=== PATIENT | female | born 1955 | race Hispanic/Latino ===

== ENCOUNTER 2023-05-02 13:46 | Emergency (ER) | payer MEDICARE, SELFPAY ==
[2023-05-02 13:47] VITALS: PULSE 83; RESP 93; O2SAT 94
[2023-05-02 13:49] VITALS: BP 167/69; PULSE 91; RESP 16; TEMP 36.8; O2SAT 96; BMI 36.8
[2023-05-02 14:36] LABS: Bedside Glucose 356 mg/dL (74-106)
--- NOTE | 2023-05-02 15:39 | EX.ED.DYSGE1 ---
HPI History of Present Illness Chief Complaint: Hyperglycemia Informant: patient Narrative Narrative: Patient is a 67-year-old female, Azeri speaking with her son at the bedside to translate, presenting for concerns of high blood sugars. Patient is diabetic on Trulicity. She receives her care through [facility] in [place]. They have been uptitrating her Trulicity however she is continue to have blood sugar elevations. Patient notes that sometimes her blood sugar is higher and she feels wobbly and unsteady. She has intermittent headache. Denies any vision changes, cough, chest pain, shortness of breath, fever, chills or flulike symptoms. Does have a history of urinary tract infections. Other medications include metformin, lisinopril and atorvastatin. Does get some intermittent nausea and vomiting but attributes that to a side effect of the Trulicity as well as heartburn. Son checked her blood sugar today for fingerstick blood glucose check it was 487 which is what prompted him to come to the ER. Patient did take 36 units at 1030 this morning. [facility] Medical History Diabetes Hypertension Allergy/AdvReac Type Severity Reaction Status Date / Time No Known Allergies Allergy Verified 05/02/23 13:49 Family History no significant family his Surgical History no surgical history Social History household members: family Smoking Status: Never smoker ROS ROS ED Constitutional Constitutional ED: Denies chills, fever(s) or sweats Eyes Eyes: Denies blurry vision or change in vision ENT ENT ED: Denies rhinorrhea or sore throat Cardiovascular Cardiovascular: Denies chest pain Respiratory/Chest Respiratory/Chest: Denies cough Gastrointestinal Gastrointestinal: Reports nausea and vomiting; Denies abdominal pain or constipation Genitourinary Genitourinary ED: Denies dysuria or hematuria Musculoskeletal Musculoskeletal: Denies arthralgias or myalgias Neurologic Neurologic: Reports headache(s); Denies paresthesias or weakness Endocrine Endocrinology: Reports other Details: elevated blood sugar Hematologic/Lymphatic Hematologic/Lymphatic: Denies easy bleeding or easy bruising EXAM Physical Exam Const Vital Signs: 05/02/23 13:49 05/02/23 13:47 05/02/23 15:21 Temperature 98.3 F Temperature Source Temporal Pulse Rate 91 83 Respiratory Rate 16 93 H Respiratory Effort Normal Non-Labored Respiratory Pattern Normal Blood Pressure 167/69 H Blood Pressure Mean 101 Pulse Ox 96 94 Oxygen Delivery Method Room Air Room Air 05/02/23 18:00 Temperature Temperature Source Pulse Rate 84 Respiratory Rate 16 Respiratory Effort Respiratory Pattern Blood Pressure 144/69 H Blood Pressure Mean 94 Pulse Ox 97 Oxygen Delivery Method Positive well nourished and well developed General Appearance ED: well developed and NAD HEENT Reports dry mucous membranes Mouth ED: Yes dry mucous membranes Mouth: dry mucous membranes Neck supple Chest Wall inspection of chest normal and palpation of chest normal Resp normal respiratory effort and clear to auscultation bilaterally Cardio regular rate, regular rhythm and no murmurs GI normal to inspection, nondistended, normoactive bowel sounds and non-tender Extremity normal to inspection Neuro oriented x3, CN's II-XII intact bilaterally and no sensory deficits noted Neuro Narrative: Coordination with normal [id number] and ambulation Sensorium / Orientation: alert Motor Exam: Negative for general weakness Psych mental status grossly normal Skin no rashes or lesions noted and no wounds MDM MDM MDM Narrative Medical decision making narrative: Is evaluated for elevated blood glucose. She has had a vague symptoms of weakness and confusion is going on for about a month. No focal neurologic deficits. Her symptoms are waxing and waning so do not suspect an acute cervical vascular injury. I will obtain basic labs, urinalysis and, EKG and give 1 L of IV fluid. 293 on repeat after liter of IV fluid. Lab work largely unremarkable except for hyperglycemia. Glucose is 386. She is a normal anion gap. She is a mildly elevated alkaline phosphatase of uncertain clinical significance. Denies any abdominal pain. Urinalysis shows 0-5 white blood cells with 25 leuk esterase but no bacteria. Will send off for culture. She does have glucose urea. Patient reevaluated states overall she feeling better but has a mild headache. Given dose of Tylenol. Given 6 use of insulin. We discharged home to follow-up with her primary care doctor for further adjustment of her Trulicity/diabetic medications. She is comfortable this plan of care. At this time I do not think patient requires admission to the hospital. She verbalizes agreement to this plan. Discharged home in stable and improved condition. Lab Data Attestation: I reviewed the patient's lab results. Labs: Laboratory Results - last 24 hr 05/02/23 05/02/23 05/02/23 14:17 14:50 15:49 WBC 7.4 RBC 4.88 Hgb 12.9 Hct 39.5 MCV 80.9 L MCH 26.4 L MCHC 32.7 RDW Std Deviation 42.3 RDW Coeff of Chary 14.4 Plt Count 293 MPV 11.1 Immature Gran % (Auto) 0.300 Neut % (Auto) 61.5 Lymph % (Auto) 30.6 [place] % (Auto) 6.2 Eos % (Auto) 0.7 Baso % (Auto) 0.7 Absolute Neuts (auto) 4.6 Absolute Lymphs (auto) 2.27 Nucleated RBC % 0 Sodium 137 Potassium 4.6 Chloride 103 Carbon Dioxide 25.0 Anion Gap 9 BUN 21 H Creatinine 1.13 H Estim Creat Clear Calc 33.75 Est GFR (MDRD) Af Amer 61 Est GFR (MDRD) Non-Af 51 L BUN/Creatinine Ratio 18.6 Glucose 386 H Calcium 9.5 Total Bilirubin 0.40 AST 8 L ALT 24 Alkaline Phosphatase 153 H Total Protein 7.5 Albumin 3.6 Globulin 3.9 Albumin/Globulin Ratio 0.9 Urine Color Urine Clarity Urine pH Ur Specific [place] Urine Protein Urine Glucose (UA) Urine Ketones Urine Occult Blood Urine Nitrite Urine Bilirubin Urine Urobilinogen Ur Leukocyte Esterase Urine RBC Urine WBC Ur Squamous Epith Cells Urine Bacteria Urine Mucus POC Glucose 356 H 389 H 05/02/23 05/02/23 16:10 17:06 WBC RBC Hgb Hct MCV MCH MCHC RDW Std Deviation RDW Coeff of Chary Plt Count MPV Immature Gran % (Auto) Neut % (Auto) Lymph % (Auto) [place] % (Auto) Eos % (Auto) Baso % (Auto) Absolute Neuts (auto) Absolute Lymphs (auto) Nucleated RBC % Sodium Potassium Chloride Carbon Dioxide Anion Gap BUN Creatinine Estim Creat Clear Calc Est GFR (MDRD) Af Amer Est GFR (MDRD) Non-Af BUN/Creatinine Ratio Glucose Calcium Total Bilirubin AST ALT Alkaline Phosphatase Total Protein Albumin Globulin Albumin/Globulin Ratio Urine Color Yellow Urine Clarity Clear Urine pH 6.0 Ur Specific [place] 1.015 Urine Protein 30 H Urine Glucose (UA) 1000 H Urine Ketones Negative Urine Occult Blood 10 H Urine Nitrite Negative Urine Bilirubin Negative Urine Urobilinogen Normal Ur Leukocyte Esterase 25 H Urine RBC 0 SEEN Urine WBC 0-5 SEEN Ur Squamous Epith Cells 0 SEEN Urine Bacteria 0 SEEN Urine Mucus 0 SEEN POC Glucose 293 H Rhythm Strip Rhythm Strip: Sinus Rhythm Rate: 85 Ectopy: None EKG Initial EKG: Attestation: I personally reviewed and interpreted this EKG as follows: Interpretation: Sinus Rhythm Comments: Sinus rhythm at a rate of 85 bpm Normal axis Normal intervals Normal ST segments Discharge Plan Triage Chief Complaint: Hyperglycemia ED Provider: Vianca Leal Dx/Rx/DC Orders Clinical Impression: Hyperglycemia, Weakness generalized Instructions: ED Diabetic Hyperglycemia Primary Care Provider: JANET NAVA Referrals: JANET NAVA [Other] Activity Restrictions/Additional Instructions: While your blood sugar is elevated there is no signs of a diabetic emergency such as DKA. You were given small dose of insulin in the ER as well as IV fluids. Please follow-up with your primary care doctor on Friday for further titration/management of your blood sugar. Continue to adhere to a diabetic diet. Return to the ER if you have a progression or worsening of your symptoms. Continue to take your medications as prescribed. Print Language: Azeri Disposition Disposition: Home, Self Care Discharge Date/Time: 05/02/23 18:20
[2023-05-02 15:47] LABS: Absolute Lymphocyte Count 2.27 X10^3/uL (0.83-4.51); Absolute Neutrophil Count 4.6 X10^3/uL (2.0-7.7); Basophil# 0.05 X10^3/uL; Basophil% 0.7 % (0-1); Eosinophil# 0.05 X10^3/uL; Eosinophils% 0.7 % (0-5); Hematocrit 39.5 % (37-47); Hemoglobin 12.9 g/dL (12.0-15.0); Lymphocyte # 2.27 X10^3/ul (0.83-4.51); Lymphocyte % 30.6 % (19-41); Mean Corp Hgb Conc 32.7 g/dL (32-36); Mean Corpuscular Hgb 26.4 pg (27.0-32.0); Mean Corpuscular Volume 80.9 fL (81-99); Mean Platelet Vol. 11.1 fl (6.2-12.0); Monocyte# 0.46 X10^3/uL; Monocyte% 6.2 % (0-10); NRBC Flagged by Analyzer 0 % (0-5); Neutrophil # 4.57 X10^3/uL (2.7-7.7); Neutrophil % 61.5 % (47-70); Platelet Count 293 K/mm3 (150-450); RBC Distribution Width CV 14.4 % (11.6-14.6); RBC Distribution Width SD 42.3 fl (35.1-43.9); Red Blood Count 4.88 M/mm3 (4.2-5.4); White Blood Count 7.4 K/mm3 (4.4-11.0)
[2023-05-02] MEDS: 0.9% Normal Saline (1000mL) 1,000 ML 999 ML IV (15:51)
[2023-05-02 16:02] LABS: ALB/GLOB Ratio 0.9 RATIO (0.9-2.4); AST(SGOT) 8 U/L (15-37); Alanine Aminotransfer ALT/SGPT 24 U/L (13-56); Albumin, Serum 3.6 g/dL (3.2-5.0); Alkaline Phosphatase 153 U/L (45-117); Anion Gap 9 (5-15); BUN 21 mg/dL (7-18); BUN/Creat Ratio 18.6 RATIO (10-20); Calcium,Total 9.5 mg/dL (8.5-10.1); Chloride 103 mmol/L (98-107); Creatinine, Serum 1.13 mg/dL (0.55-1.02); EST Glomerular Filtration Rate 51 mL/min (>60); Est Glom Filt Rate - Afr Amer 61 mL/min (>60); Estimated Creatinine Clearance 33.75 ml/min; Globulin 3.9 g/dL (2.2-4.2); Glucose 386 mg/dL (74-106); Potassium 4.6 mmol/L (3.5-5.1); Protein, Total 7.5 g/dL (6.4-8.2); Sodium Level 137 mmol/L (136-145)
[2023-05-02 16:06] LABS: Bedside Glucose 389 mg/dL (74-106)
[2023-05-02 16:21] LABS: Bacteria 0 SEEN /hpf (None Seen); Mucous, Urine 0 SEEN /hpf (<or=2+); Red Blood Cells-Urine 0 SEEN /hpf (0-5); Squamous Epithelial Cells - UA 0 SEEN /hpf (5-10)
[2023-05-02 16:33] LABS: Color, Urine Yellow (Yellow); Glucose, Dipstick 1000 mg/dl (Normal); Ketone-Dipstick Negative (Negative); Leukocyte Esterase-Dipstick 25 /ul (Negative); Nitrite-Dipstick Negative (Negative); Occult Blood-Urine 10 /ul (Negative); Protein-Dipstick 30 mg/dl (Negative); Specific Gravity, Urine 1.015 (1.002-1.030); Urine Bilirubin Dipstick Negative (Negative); Urine Clarity Clear (Clear); Urine Urobilinogen Normal (Normal)
[2023-05-02 16:40] LABS: White Blood Cells 0-5 SEEN /hpf (0-5)
[2023-05-02 17:29] LABS: Bedside Glucose 293 mg/dL (74-106)
[2023-05-02 18:00] VITALS: BP 144/69; PULSE 84; RESP 16; O2SAT 97
[2023-05-02] MEDS: Acetaminophen 325 MG Tablet 650 MG PO (18:09)
[2023-05-02] MEDS: Insulin Lispro 100 UNIT/ML INSULN.PEN 6 UNIT SC (18:09)
== END 2023-05-02 18:20 | disposition home or self-care (01) ==
PROVIDERS: Emergency Provider Emergency Medicine; Visit Provider Emergency Medicine
DX: E11.65 Type 2 diabetes mellitus with hyperglycemia (principal); R53.1 Weakness; I10 Essential (primary) hypertension; Z79.84 Long term (current) use of oral hypoglycemic drugs; Z79.85 Long-term (current) use of injectable non-insulin antidiabetic drugs; Z79.899 Other long term (current) drug therapy
CPT/HCPCS: 80053; 81001; 82962; 85025; 87086; 87088; 93005; 96360; 96361; 99283

== ENCOUNTER 2023-05-16 13:15 | Emergency (ER) | payer MEDICARE, SELFPAY ==
[2023-05-16 13:16] VITALS: BP 149/73; PULSE 101; RESP 16; TEMP 36.1; O2SAT 95
--- NOTE | 2023-05-16 13:34 | CT_ITS ---
STUDY: CT BRAIN WITHOUT CONTRAST REASON FOR EXAM: Female, 67 years old. Headache after trauma RADIATION DOSAGE (If Supplied By Facility): CTDIvol = ( 44.99 ) mGy, DLP = ( 796.11 ) mGycm TECHNIQUE: Transaxial CT imaging of the brain was performed without administration of intravenous contrast material. Individualized dose optimization techniques were used for this CT. COMPARISON: No relevant priors. FINDINGS: Normal soft tissue structures. Normal calvarium. Normal size ventricles and extra-axial spaces for the patient''s age. Normal white matter tracts of the cerebral hemispheres. Normal basal ganglia and thalami. Normal brainstem. Normal cerebellum. There is no intracranial hemorrhage. There are no findings of an acute ischemic infarction. Normal visualized paranasal sinuses. CT/Brain/Head without Contrast IMPRESSION: Chronic involutional changes of the brain, no acute hemorrhage. Electronically Signed: Mervin Savage MD at 14:07 EST ,
--- NOTE | 2023-05-16 13:36 | EX.ED.DYSGE1 ---
HPI History of Present Illness Chief Complaint: Fall Informant: patient and family (Son who is comfortable fully translating since patient speaks Yi no Surinamese) Associated Symptoms Associated Symptoms ED: cough Narrative Narrative: Patient has had a cough, subjective fever and chills, malaise since 2-3 days ago. Very weak today and yesterday to the point today where she was trying to walk and she fell while in the bathroom. She does not remember the fall, son initially called this confusion but agrees that other than not remembering the fall, she seems to be oriented and at her baseline otherwise. She does not have any pain from the fall. However, she has been in bed other than that and is unable to stand or walk on her own, which she does normally when she is well. Family member was ill that she had contact with lately, the son states that the family member tested negative for COVID but otherwise unknown illness, still having symptoms. Patient has had some diarrhea. Very little oral intake in the last couple days. No dyspnea but her chest hurts from coughing according to what the son states she has told him. No GI symptoms as far as pain or nausea/vomiting. [facility] Medical History Diabetes Hypertension Home Medications oseltamivir 75 mg capsule (Tamiflu) 75 mg PO BID 5 days #10 caps 05/16/23 [Rx Last Taken Unknown] Allergy/AdvReac Type Severity Reaction Status Date / Time No Known Allergies Allergy Verified 05/16/23 13:16 Family History no significant family his Surgical History no surgical history Social History household members: family Smoking Status: Never smoker ROS ROS ED Constitutional Constitutional ED: Reports body ache(s), chills, fatigue, fever(s), malaise and subjective; Denies headache(s) Eyes Eyes: Denies change in vision or diplopia ENT ENT ED: Denies rhinorrhea or sore throat Cardiovascular Cardiovascular: Reports chest pain; Denies palpitations Respiratory/Chest Respiratory/Chest: Reports cough and dyspnea on exertion; Denies dyspnea Gastrointestinal Gastrointestinal: Reports diarrhea; Denies abdominal pain, nausea or vomiting Genitourinary Genitourinary ED: Denies dysuria or hematuria Musculoskeletal Musculoskeletal: Reports myalgias; Denies back pain or neck pain Integumentary Denies abscess or rash Neurologic Neurologic: Reports weakness; Denies headache(s) or paresthesias Psychiatric Psychiatric: Denies suicidal ideation or suicidal thoughts EXAM Physical Exam Const Vital Signs: 05/16/23 13:16 Temperature 97.0 F L Temperature Source Temporal Pulse Rate 101 H Respiratory Rate 16 Blood Pressure 149/73 H Blood Pressure Mean 98 Pulse Ox 95 Oxygen Delivery Method Room Air Positive well nourished, well developed and obese Constitutional Narrative: Malaised-appearing, no distress General Appearance ED: well developed and NAD Nutritional Appearance: obese HEENT Reports moist mucous membranes normocephalic and atraumatic Eyes PERRL and EOMs intact bilaterally Neck full ROM, no lymphadenopathy and supple Resp normal respiratory effort and clear to auscultation bilaterally Cardio regular rate, regular rhythm and no murmurs Rate: Negative for tachycardic GI non-tender and non-distended Auscultation: normoactive bowel sounds Palpation: soft Back/Spine no CVA tenderness General Back: other FROM Extremity normal to inspection and no calf tenderness Extremity Narrative: Painless range of motion all joints x 4 General Extremety ED: Negative for edema, pulses abnormal or tenderness General Extremity: Negative for edema or pulses abnormal Neuro oriented x3, CN's II-XII intact bilaterally and no sensory deficits noted Sensorium / Orientation: awake and alert Motor Exam: general weakness Psych mental status grossly normal Skin no rashes or lesions noted and no wounds MDM MDM MDM Narrative Medical decision making narrative: CT of the head was obtained in order to rule out intracranial injury, I reviewed the images and report which I agree with, negative for anything acute. Chest x-ray 2 views of my interpretation shows no acute pneumonia. Her labs are noted and are unremarkable, she does have a white count that is low with a bit of a leftward trend, no significant bandemia. Her glucose was elevated 340. I did look through her [employer] wireless glucose measurement machine, which showed that in the past 3 days 9% of her readings have been within range and the majority of them have been elevated with an average of about 260 and no episodes of hypoglycemia. Her EKG and troponin are within normal limits, ruling out acute myocardial injury and myocarditis as cause of her symptoms. Her influenza/COVID/RSV swab returned positive for both RSV and influenza A, the influenza likely explains her symptoms. If she actually has coinfection with RSV, as I discussed with her and family her illness may linger on longer than the typical week for influenza. She did not have influenza vaccine this year. She is a diabetic is at hyperglycemia and is 340 right now, so I am giving her a dose of short acting insulin which she is not on at home to do sliding scale, as well as starting her on Tamiflu. Family is living with her and comfortable caring for her in the meantime. I encourage fluids, and I would not decrease her dose of long-acting insulin since she probably will not be eating as much. They are comfortable with that plan we discussed reasons to return. Otherwise, supportive care and Tamiflu. Given this result, I canceled the urinalysis since we would need to catheterize her for it and she has no new urinary symptoms just chronic intermittent incontinence. History & Record Review Discussion w/independent historian: Patient and Family (son, [id number]) Lab Data Attestation: I reviewed the patient's lab results. Labs: Laboratory Results - last 24 hr 05/16/23 13:55 WBC 5.5 RBC 4.67 Hgb 12.5 Hct 38.0 MCV 81.4 MCH 26.8 L MCHC 32.9 RDW Std Deviation 41.6 RDW Coeff of Chary 14.2 Plt Count 194 MPV 11.0 Immature Gran % (Auto) 0.400 Neut % (Auto) 80.7 H Lymph % (Auto) 10.3 L [place] % (Auto) 8.4 Eos % (Auto) 0.0 Baso % (Auto) 0.2 Absolute Neuts (auto) 4.4 Absolute Lymphs (auto) 0.56 L Nucleated RBC % 0 Sodium 132 L Potassium 4.1 Chloride 99 Carbon Dioxide 26.0 Anion Gap 7 BUN 14 Creatinine 1.13 H Estim Creat Clear Calc 45.92 Est GFR (MDRD) Af Amer 61 Est GFR (MDRD) Non-Af 51 L BUN/Creatinine Ratio 12.4 Glucose 340 H Calcium 9.1 Total Bilirubin 0.20 AST 24 ALT 29 Alkaline Phosphatase 117 Troponin I High Sens 12 Total Protein 7.6 Albumin 3.4 Globulin 4.2 Albumin/Globulin Ratio 0.8 L Radiography Diagnostic Testing: Clinical Impression(s) from Imaging Studies Brain CT 05/16/23 13:34 IMPRESSION: Chronic involutional changes of the brain, no acute hemorrhage. Electronically Signed: Mervin Savage MD at 14:07 EST , Chest X-Ray 05/16/23 13:55 IMPRESSION: Chronic interstitial changes, no superimposed acute pulmonary process Electronically Signed: Mervin Savage MD at 14:09 EST , Rhythm Strip Rhythm Strip: Sinus Rhythm Rate: 96 Ectopy: None EKG Initial EKG: Attestation: I personally reviewed and interpreted this EKG as follows: Interpretation: Sinus Rhythm and No Acute Injury Pattern Discharge Plan Triage Chief Complaint: Fall ED Provider: Anatoliy Vegas Dx/Rx/DC Orders Clinical Impression: Hyperglycemia due to type 2 diabetes mellitus, Influenza A, RSV infection, Accidental fall Instructions: RSV (Respiratory Syncytial Virus), ED Diabetic Hyperglycemia, ED Influenza (Adult) Prescriptions: New oseltamivir [Tamiflu] 75 mg capsule 75 mg PO BID 5 Days Qty: 10 0RF Primary Care Provider: JANET NAVA Referrals: JANET NAVA [Other] - 1 Week if not improving Disposition Disposition: Home, Self Care
[2023-05-16 13:43] VITALS: BMI 37.2
--- NOTE | 2023-05-16 13:55 | RAD_ITS ---
STUDY: X-RAY CHEST REASON FOR EXAM: Female, 67 years old. cough, weakness TECHNIQUE: PA and lateral views of the chest. COMPARISON: None. FINDINGS: EKG leads overlie the chest Chronic interstitial changes in both lung gaytan without a superimposed acute pulmonary process. Normal size heart. Normal mediastinum and alla. Normal visualized pulmonary arteries. Normal visualized aortic arch and descending thoracic aorta. Normal visualized thoracic spine. Normal visualized ribs, clavicles, and shoulders. There is no demonstrated abnormality of the visualized soft tissue structures of the upper abdomen. RAD/Chest PA and Lateral IMPRESSION: Chronic interstitial changes, no superimposed acute pulmonary process Electronically Signed: Mervin Savage MD at 14:09 EST ,
[2023-05-16 14:06] LABS: Absolute Lymphocyte Count 0.56 X10^3/uL (0.83-4.51); Absolute Neutrophil Count 4.4 X10^3/uL (2.0-7.7); Basophil# 0.01 X10^3/uL; Basophil% 0.2 % (0-1); Hemoglobin 12.5 g/dL (12.0-15.0); Lymphocyte # 0.56 X10^3/ul (0.83-4.51); Lymphocyte % 10.3 % (19-41); Mean Corp Hgb Conc 32.9 g/dL (32-36); Mean Corpuscular Hgb 26.8 pg (27.0-32.0); Mean Corpuscular Volume 81.4 fL (81-99); Monocyte# 0.46 X10^3/uL; Monocyte% 8.4 % (0-10); NRBC Flagged by Analyzer 0 % (0-5); Neutrophil % 80.7 % (47-70); POSITIVE DIFFERENTIAL YES; Platelet Count 194 K/mm3 (150-450); RBC Distribution Width CV 14.2 % (11.6-14.6); RBC Distribution Width SD 41.6 fl (35.1-43.9); Red Blood Count 4.67 M/mm3 (4.2-5.4); White Blood Count 5.5 K/mm3 (4.4-11.0)
[2023-05-16 14:09] LABS: Differential Indicated SCAN CRITERIA MET
--- OUTSIDE RECORDS SUMMARY | 2023-05-16 14:20 | XMS RPT_ITS | CCD ---
Author Name Unknown Address [address] [place] [address] Organization [facility] Care Team Providers Care Physician Relations Specialist Name Role Phone Day Nava Primary Care Provider Dya Nava Unavailable [phone] Unavailable Unavailable Day Nava Primary Care Provider [phone] DAY NAVA Referring Unavailable DAY NAVA Primary Care Unavailable Medications Completed/Discontinued Medications Medication Drug Class(es) Dates Sig (Normalized) Sig (Original) amoxicillin 875 mg / clavulanate 125 mg oral tablet (1 source) Penicillin-class Antibacterial Start: 06-08-2022 take 1 tablet by mouth every twelve hours Amoxicillin-Pot Clavulanate 875-125 MG Oral Tablet Take 1 tablet every 12 hours Quantity: 14 Refills: 0 Ordered: 08-Jun-2022 Herber Helms PA-C Start : 08-Jun-2022 Active Problems Problem Classification Problem Date Documented Da te Episodic/Chronic Other ear and sense organ disorders (1 source) Impacted cerumen; Translations: [Impacted cerumen] Episodic Otitis media and related conditions (1 source) Acute otitis media; Translations: [Unspecified otitis media] Episodic Results Test Name Value Interpretation Reference Range Facil ity Vital Signs Date Time Vital Sign Value Performing Clinician Faci lity 06-08-2022 15:34-0500 Body height 154.94 cm Day Nava Work Phone: -[facility] Work Phone: 06-08-2022 15:34-0500 Body mass index (BMI) [Ratio] 34.01 kg/m2 Day Nava Work Phone: [facility] Work Phone: 06-08-2022 15:34-0500 Body surface area Derived from formula 1.81 m2 Day Nava Work Phone: [facility] Work Phone: 06-08-2022 15:34-0500 Body temperature 98 [degF] Day Nava Work Phone: [facility] Work Phone: 06-08-2022 15:34-0500 Body weight 81.65 kg Day Nava Work Phone: [facility] Work Phone: 06-08-2022 15:34-0500 Diastolic blood pressure 66 mm[Hg] Day Nava Work Phone: [facility] Work Phone: 06-08-2022 15:34-0500 Heart rate 75 /min Day Nava Work Phone: [facility] Work Phone: 06-08-2022 15:34-0500 Respiratory rate 16 /min Day Nava Work Phone: [facility] Work Phone: 06-08-2022 15:34-0500 SaO2% (BldA) [Mass fraction] 97 % Day Nava Work Phone: [facility] Work Phone: 06-08-2022 15:34-0500 Systolic blood pressure 132 mm[Hg] Day Nava Work Phone: [facility] Work Phone: 06-08-2022 15:34-0500 5 1 Day Nava Work Phone: [facility] Work Phone: Encounters Encounter Date Encounter Type Care Provider Facility Start: 02-11-2023 Documentation procedure Mammog gurjit Coordinator [facility] Start: 02-11-2023 Letter encounter Mammography Coordinator [facility] NOT LISTED Start: 02-11-2023 ambulatory DAY NAVA Fac ility:[facility] Start: 06-08-2022 Office outpatient ne w 30 minutes Day Nava Work Phone: -[facility] Work Phone: Start: 03-13-2021 Documentation procedure Mammog gurijt Coordinator [facility] Start: 03-13-2021 Letter encounter Mammography Coordinator [facility] NOT LISTED Start: 03-13-2021 End: 03-13-2021 Subsequent hospital visit by physician Screen [facility] Procedures Date Procedure Procedure Detail Performing Clinician Start: 03-13-2021 End: 03-13-2021 Screening mammography bi 2-view breast inc cad Day Nava Work Phone: Plan of Treatment Date Care Activity Detail Author Start: 12-27-2022 Covid-19 Vaccine ( season) Covid-19 Vaccine () [facility] Start: 12-27-2022 Influenza vaccination Influenza Vacc ine (#1) [facility] Start: 04-28-2022 Advance Directive Discussion Advance Directive Discussion [facility] Start: 04-28-2022 Depression Assessment Depression Ass essment [facility] Start: 03-13-2022 Mammography [facility] Start: 03-20-2021 COVID-19 VACCINE (3 - Booster for Moderna series) COVID-19 VACCINE (3 - Booster for Moderna series) [facility] Start: 12-27-2020 Influenza vaccination INFLUENZA (#1) [facility] Start: 10-06-2020 Urine microalbumin profile DTa P,Tdap,Td Vaccine (1 - Tdap) [facility] Start: 2018 ADVANCE DIRECTIVE DISCUSSION ADVANCE DIRECTIVE DISCUSSION [facility] Start: 2018 BONE DENSITY BONE DENSITY [facility] Start: 2018 Bone Density Screening Bone Density Screening [facility] Start: 2018 Pneumococcal Vaccine : 65+ (1 - PCV) Pneumococcal Vaccine: 65+ (1 - PCV) [facility] Start: 2018 PNEUMOVAX AGE 65 AND OVER WITH 5YR LOOKBACK (#1) PNEUMOVAX AGE 65 AND OVER WITH 5YR LOOKBACK (#1) [facility] Start: 2013 RSV Vaccine (1 - 1-d ose 60+ series) RSV Vaccine (1 - 1-dose 60+ series) [facility] Start: 10-20-2003 SHINGRIX VACCINE (1 of 2) SHINGRIX V ACCINE (1 of 2) [facility] Start: 1998 COLOGUARD (FIT-DNA) COLOGUARD (FIT-D NA) [facility] Start: 1998 Colonoscopy COLONOSCOPY [facility] Start: 1998 COLORECTAL CANCER SCREENING COLORECTAL CANCER SCREENING [facility] Start: [address] COLONOGRAPHY [facility] Start: 1998 DIABETES SCREEN DIABETES SCREEN [facility] Start: 1998 Diabetes Screening Diabetes Screenin g [facility] Start: 1998 FECAL OCCULT BLOOD FECAL OCCULT BLOO D [facility] Start: 1998 Lipid 1996 panel - S brittany or Plasma Lipid Screening [facility] Start: 1998 LIPID SCREEN LIPID SCREEN [facility] Start: 1998 SIGMOIDOSCOPY SIGMOIDOSCOPY [facility] Start: 1972 Urine microalbumin profile DTAP,TDAP ,TD (1 - Tdap) [facility] Start: 10-20-1971 HEPATITIS C SCREENING HEPATITIS C SC REENING [facility] Start: 1965 Adult depression scr eening assessment DEPRESSION SCREENING [facility] Payers Date Payer Category Payer Medicare [facility] [employer] PPO [id number] 2022-Present [phone] [address] [address] [place] [address] PPO [id number] 2022 Unknown [id number] 2020 Medicare MEDICARE [employer] GENERIC MEDICARE ADVANTAGE GENERIC [id number] 2020-Present [phone] [address] [address] [place] [address] Indemnity [id number] Unknown [facility] Social History Date Type Detail Facility [facility] Start: 1955 Sex Assigned At Not on file [facility] Exposure to SARS-CoV -2 (event) Not sure [facility] Gender identity Not on file [facility] inic Note 02-11-2023 Letter - Coordinator, Mammography - 02/11/2023 2:29 PM EDT Note Date & Type Note Facility 02-11-2023 Miscellaneous Notes Formattin g of this note might be different from the original. [facility] [address] [place] [address] February 12, 2023 PID: [id number] Tena Acosta [address] [place] [address] Dear Ms. Acosta, We are pleased to inform you that the results of your recent breast imaging exam on 02/11/2023 are normal. Early detection of cancer is very important. We also understand recommendations regarding breast cancer screening are controversial. Please discuss with your primary care provider which strategy is best for you and whether a mammogram is right for you. Your imaging studies and report will be kept on file at [facility] as part of your permanent medical record and are available for your continuing care. Thank you for allowing us to help in meeting your health care needs. Sincerely, Dr. Garcia Interpreting Radiologist [facility] (Normal over 40) documented in this encounter [facility] Progress note 02-11-2023 Note Date & Type Note Facility 02-11-2023 Note HNO ID: [id number] Author: Sachi Khan RT(R) Service: ? Author Type: Technologist Type: Progress Notes Filed: 02/11/2023 11:29 AM Note Text: Radiology Service Progress Note PATIENT NAME: Tena PEREAN: [id number] DATE OF SERVICE: February 11, 2023 TIME: 11:29 AM PATIENT IDENTITY VERIFICATION COMPLETED USING TWO (2) IDENTIFIERS: Name and Date of confirmed by patient verbally. FALL SCREENING: Has the patient had 2 falls in the last year or 1 fall with injury or currently using an Ambulatory Assistive Device (Walker, Cane, Wheelchair, Crutches, etc.)? No PATIENT GENDER DATA: Female. status: : No status: NO. PATIENT RELEVANT IMPLANT DATA REVIEWED: Yes RADIOLOGY DEPARTMENT: Mammography PERIPHERAL IV DATA: Not applicable SIGNED BY: Sachi Khan RT(R) February 11, 2023 11:29 AM [facility] History of Present illness Narrative 06-06-2022 Note Date & Type Note Facility 06-06-2022 History of Present illness Narrative Patient 66-year-old female presenting with her son for sore throat ear pain. Most of the information was taken from the son as the patient speaks very little Turkmen. The son translated most of it. Patient's had symptoms for about 3 weeks now with sore throat occasional cough and right ear pain. Right ear pain just started a couple days ago. Has been coming and going but is experiencing his pain currently. Denies any recent swimming. Patient son is also been sick. She denies any sinus congestion, fever sweats chills nausea vomiting diarrhea chest pain shortness breath arm pain dizziness syncope, rashes numbness or tingling, weakness. Patient has no known drug allergiesGen: As Noted in HPIHead: As Noted in HPIEyes: As Noted in HPIENT: As Noted in HPICardiac:As Noted in HPIPulmonary: As Noted in HPIHeme/lymph: As Noted in HPIGI: As Noted in HPIGU: As Noted in HPIMusculoskeletal: As Noted in HPISkin: As Noted in HPINeuro: As Noted in HPIPsych:As Noted in HPIReview of systems is otherwise negative unless stated above or in history of present illness. [facility] Work Phone: Note 03-13-2021 Letter - Mammography Coordinator - 03/13/2021 12:36 PM EST Note Date & Type Note Facility 03-13-2021 Miscellaneous Notes [facility] [address] [place] [address] March 13, 2021 PID: [id number] Tena Acosta [address] [place] [address] Dear Karla, We are pleased to inform you that the results of your recent breast imaging exam on 03/13/2021 are normal. Early detection of cancer is very important. We also understand recommendations regarding breast cancer screening are controversial. Please discuss with your primary care provider which strategy is best for you and whether a mammogram is right for you. Your imaging studies and report will be kept on file at [facility] as part of your permanent medical record and are available for your continuing care. Thank you for allowing us to help in meeting your health care needs. Sincerely, Dr. Garcia Interpreting Radiologist [facility] (Normal over 40) documented in this encounter [facility] History of Present illness Narrative 03-13-2021 RT Gerardo(R) - 03/13/2021 11:40 AM EST Note Date & Type Note Facility 03-13-2021 History of Presen t illness Narrative Radiology Service Progress Note PATIENT NAME: Tena Acosta DATE OF SERVICE: March 13, 2021 TIME: 12:21 PM PATIENT IDENTITY VERIFICATION COMPLETED USING TWO (2) IDENTIFIERS: Name and Date of confirmed by patient verbally. FALL SCREENING: Has the patient had 2 falls in the last year or 1 fall with injury or currently using an Ambulatory Assistive Device (Walker, Cane, Wheelchair, Crutches, etc.)? No PATIENT GENDER DATA: Female. status: : No status: NO. PATIENT RELEVANT IMPLANT DATA REVIEWED: Yes RADIOLOGY DEPARTMENT: Mammography PERIPHERAL IV DATA: Not applicable SIGNED BY: RT Gerardo(R) March 13, 2021 12:21 PM documented in this encounter [facility] Chief Complaint Sore throat, ear Summary Purpose Family History No Family History Records Found Advance Directives No Advanced Directives Records Found Additional Source Comments Source Comments (unrecognize d section and content) In the event this informatio n is protected by the Federal Confidentiality of Alcohol and Drug Abuse Patient Records regulations: The Federal rules restrict any use of the information to criminally investigate or prosecute any alcohol or drug abuse patient.[facility] the event this information is protected by the Federal Confidentiality of Alcohol and Drug Abuse Patient Records regulations: The Federal rules restrict any use of the information to criminally investigate or prosecute any alcohol or drug abuse patient.[facility] the event this information is protected by the Federal Confidentiality of Alcohol and Drug Abuse Patient Records regulations: The Federal rules restrict any use of the information to criminally investigate or prosecute any alcohol or drug abuse patient.[facility] Reason for Visit (unrecogniz ed section and content) Specialty Diagnoses / Procedures Referred By Contac t Referred To Contact [facility] M[facility]MO REFLE[facility] Diagnoses Encounter for general adult medical examination without abnormal findings screening Procedures SCREENING MAMMOGRAPHY BI 2-VIEW BREAST INC CAD MAMMOGRAM SCREEN EXTERNAL Day Nava [address] [address] [facility] [address] [address] Referral ID Status Reason Start Date Expiration Date Visits Re quested Visits Authorized [id number] Closed 04/28/2020 04/27/2021 1 1 Care Teams (unrecognized sec tion and content) Physician Relations Specialist Relationship Specialty Start Date End Date Day Nava [address] [place] [phone] PCP - General Family Practice 03/13/21 Physician Relations Specialist Relationship Specialty Start Date End Date Day Nava [address] [place] [phone] PCP - General Family Medicine 03/13/21 INFORMATION SOURCE (unrecogn ized section and content) FOR RECORDS PERTAINING TO PATIENTS WHO ARE OR HAVE BEEN ENROLLED IN A CHEMICAL DEPENDENCY/SUBSTANCEABUSE PROGRAM, SOME INFORMATION MAY BE OMITTED. This clinical summary was aggregated from multiple sources. Caution should be exercised in using it in the provision of clinical care. This summary normalizes information from multiple sources, and as a consequence, information in this document may materially change the coding, format and clinical context of patient data. In addition, data may be omitted in some cases. CLINICAL DECISIONS SHOULD BE BASED ON THE PRIMARY CLINICAL RECORDS. [employer] provides no warranty or guarantee of the accuracy or completeness of information in this document.
[2023-05-16 14:22] LABS: ALB/GLOB Ratio 0.8 RATIO (0.9-2.4); AST(SGOT) 24 U/L (15-37); Alanine Aminotransfer ALT/SGPT 29 U/L (13-56); Albumin, Serum 3.4 g/dL (3.2-5.0); Alkaline Phosphatase 117 U/L (45-117); Anion Gap 7 (5-15); BUN 14 mg/dL (7-18); BUN/Creat Ratio 12.4 RATIO (10-20); Calcium,Total 9.1 mg/dL (8.5-10.1); Chloride 99 mmol/L (98-107); Creatinine, Serum 1.13 mg/dL (0.55-1.02); EST Glomerular Filtration Rate 51 mL/min (>60); Est Glom Filt Rate - Afr Amer 61 mL/min (>60); Estimated Creatinine Clearance 45.92 ml/min; Globulin 4.2 g/dL (2.2-4.2); Glucose 340 mg/dL (74-106); Potassium 4.1 mmol/L (3.5-5.1); Protein, Total 7.6 g/dL (6.4-8.2); Sodium Level 132 mmol/L (136-145); Troponin-I HS 12 pg/mL (3.0-54.0)
[2023-05-16] MEDS: 0.9% Normal Saline (1000mL) 1,000 ML 1000 ML IV (14:30)
[2023-05-16 15:15] VITALS: RESP 18
[2023-05-16] MEDS: Oseltamivir Phosphate 75 MG Capsule PO (15:26)
[2023-05-16] MEDS: Insulin Lispro 100 UNIT/ML INSULN.PEN 8 UNIT SC (15:26)
== END 2023-05-16 16:17 | disposition home or self-care (01) ==
PROVIDERS: Emergency Provider Emergency Medicine; Visit Provider Emergency Medicine
DX: E11.65 Type 2 diabetes mellitus with hyperglycemia (principal); J10.1 Influenza due to other identified influenza virus with other respiratory manifestations; B97.4 Respiratory syncytial virus as the cause of diseases classified elsewhere; E66.9 Obesity, unspecified
CPT/HCPCS: 70450; 71046; 80053; 84484; 85025; 87631; 93005; 96360; 99284; J7030; A4216

== ENCOUNTER 2024-11-09 14:24 | Emergency (ER) | payer MEDICARE, SELFPAY ==
[2024-11-09 14:25] VITALS: BP 125/59; PULSE 91; RESP 17; TEMP 36.6; O2SAT 95; BMI 37.3
[2024-11-09 15:54] VITALS: BP 130/78; PULSE 89; RESP 18; TEMP 37; O2SAT 98
--- NOTE | 2024-11-09 16:01 | EX.ED.VISEXT ---
HPI History of Present Illness HPI Narrative: 69-year-old female history of hypertension diabetes. She was helping take care of stray cats yesterday. One of the kittens came in a house as she was getting out of the house she went to pick it up and turned around and bit her on her right thumb and index finger and left index finger. She has some mild swelling. No fever. No streaks. Chief Complaint: Bite Informant: patient and family Occured/Mechanism Comment: Cat bite bilateral hands yesterday. Onset/Context/Timing Onset: Yesterday Context: Gradual Onset Timing: Continuous Quality of Pain: Dull and Aching Current Severity: Mild Maximum Severity: Mild Narrative Narrative: 69-year-old diabetic female By Bite right index finger and right thumb and left index finger occurred yesterday.. She is right-hand dominant. Prior similar symptoms: No Recent Illness/Hospitalization: No ROS ROS ED ROS Narrative Denies recent illness. Constitutional Constitutional ED: Denies chills or fever(s) Eyes Eyes: Denies blurry vision ENT ENT ED: Denies ear pain Cardiovascular Cardiovascular: Denies chest pain or palpitations Respiratory/Chest Respiratory/Chest: Denies cough or dyspnea Gastrointestinal Gastrointestinal: Denies abdominal pain Genitourinary Genitourinary ED: Denies dysuria or hematuria Musculoskeletal Musculoskeletal: Denies arthralgias Integumentary Denies abscess or Abrasions Neurologic Neurologic: Denies headache(s) Psychiatric Psychiatric: Denies anxiety Endocrine Endocrinology: Denies polydipsia Hematologic/Lymphatic Hematologic/Lymphatic: Denies easy bleeding, easy bruising or lymphadenopathy Allergic/Immunologic Allergic/Immunologic ED: Denies mouth swelling, tongue swelling or urticaria PFSH PFS Medical History Hypertension Diabetes Home Medications ?Medication ?Instructions ?Recorded ?Last Taken ?Type amoxicillin 875 mg-potassium 1 tab PO BID 10 days #20 tabs 11/09/24 Unknown Rx clavulanate 125 mg tablet Allergy/AdvReac Type Severity Reaction Status Date / Time No Known Allergies Allergy Verified 11/09/24 14:29 Social History household members: family housing: house Smoking Status: Never smoker EXAM Physical Exam Narrative Exam Narrative: 69-year-old female sitting upright in bed. Vital signs are stable afebrile. No acute distress. Son at bedside. Vital signs are stable and afebrile. H EENT exam pupils round react light. Mytrex membranes. Neck nontender no lymphadenopathy. Lungs clear to auscultation. Heart regular rhythm no murmur. Abdomen soft nontender. Moving all 4 extremities. Neurovascular intact. Left index finger swollen bite henson consistent with early infection. Right index finger and thumb similar. Multiple bite henson. No lymphangitic streaking. There is no swelling and/or palm of her hand on either side or her forearm. There is no axillary lymphadenopathy. No forearm tenderness or swelling. Neurologically she is awake alert. Const Vital Signs: 11/09/24 14:25 11/09/24 15:54 11/09/24 16:02 Temperature 97.8 F 98.6 F 98.6 F Temperature Source Oral Oral Pulse Rate 91 89 89 Respiratory Rate 17 18 18 Blood Pressure 125/59 H 130/78 H 130/78 H Blood Pressure Mean 81 95 95 Pulse Ox 95 98 98 Oxygen Delivery Method Room Air Room Air Positive well nourished and well developed; Negative for cachectic, contractures or unkempt General Appearance ED: well developed and NAD; Negative for unkempt, cachectic or contractures Nutritional Appearance: Negative for cachectic HEENT Reports moist mucous membranes normocephalic and atraumatic; Negative for trauma or tenderness Eyes PERRL and EOMs intact bilaterally Neck full ROM and no lymphadenopathy Resp normal respiratory effort and clear to auscultation bilaterally Cardio regular rate, regular rhythm, S1 normal heart sound, S2 normal heart sound and no murmurs GI non-tender, non-distended and no masses Auscultation: normoactive bowel sounds Palpation: soft; Negative for tender, guarding or rebound tenderness present Back/Spine no CVA tenderness General Back: Negative for CVA tenderness Cervical Spine: Negative for cervical spine tenderness Thoracic Spine / Upper Back: Negative for thoracic spinal tenderness Lumbar Spine / Lower Back: Negative for lumbar spinal tenderness Extremity full ROM; Negative for normal to inspection Extremity Narrative: Swelling and bite henson to the right index finger and thumb but no lymphangitic streaking. Minimal swelling. Tenderness. Similar to the left index finger with swelling and tenderness and bite henson. Again no lymphangitic streaking. Able to do flexion extension. Neuro oriented x3 and CN's II-XII intact bilaterally Sensorium / Orientation: alert, oriented to person, oriented to place and oriented to time Motor Exam: strength 5/5 throughout Psych mental status grossly normal and thought process normal Appearance: Negative for unkempt Skin skin turgor normal Skin Narrative: Cat bites bilateral hands. Lesions: no lesions Rashes: No no rashes MDM MDM MDM Narrative Medical decision making narrative: 69-year-old diabetic female Bites from yesterday to both index fingers and right thumb. Early infection. She was started on Augmentin twice a day first dose given here. Family and patient were strongly instructed if this gets worse just return for admission. She does not want admission at this time. History & Record Review Discussion w/independent historian: Patient and Family Additional record(s) reviewed:: Prior inpatient record, Prior outpatient record, Prior ED visit and Prior labs Discharge Plan Triage Chief Complaint: Bite ED Provider: Mark Her Dx/Rx/DC Orders Clinical Impression: Cat bite Instructions: ED Cat Bite Prescriptions: New amoxicillin-pot clavulanate 875-125 mg tablet 1 tab PO BID 10 Days Qty: 20 0RF Primary Care Provider: Eunice Morgan Referrals: Eunice Morgan NP-C [Primary Care Provider] - As Needed Activity Restrictions/Additional Instructions: Ice and elevate your hands decrease pain and swelling Motrin and Tylenol for pain and swelling. The antibiotic Augmentin twice a day till gone. Return to the emergency department if increasing pain, increasing redness, increasing swelling, streaks up your arm or you are feeling worse. We have to watch is really closely this and get infected and worse quickly. If seen just return Print Language: Hungarian Disposition Disposition: Home, Self Care
[2024-11-09 16:02] VITALS: BP 130/78; PULSE 89; RESP 18; TEMP 37; O2SAT 98
--- OUTSIDE RECORDS SUMMARY | 2024-11-09 22:17 | XMS RPT_ITS | CCD ---
Author Organization [facility] Care Team Providers Care Railroad Commissioner Name Role Phone Day Nava Primary Care Provider [phone] Day Nava Unavailable [phone] Unavailable Unavailable Day Nava Primary Care Provider [phone] STACEY ZHENG Primary Care Unavailable Vianca Leal Attending Unavailable STACEY ZHENG Primary Care Unavailable Anatoliy Vegas Attending Unavailable Day Nava Primary Care Provider [phone] Day Nava DO Primary Care Provider [phone] Eunice Cortes Primary Care Provider [phone] Dr. Mark Her MD Emergency Provider Medications Current Medications Medication Drug Class(es) Dates Sig (Normalized) Sig (Original) amoxicillin 875 mg / clavulanate 125 mg oral tablet (2 sources) Penicillin-class Antibacterial Start: 11-09-2024 Amoxicillin-Pot Clavulanate 875-125 mg tablet Active 1 {tbl} PO TWICE A DAY 20 10 0 November 09, 2024 12:00am Start: 06-08-2022 take 1 tablet by majo th every twelve hours Amoxicillin-Pot Clavulanate 875-125 MG Oral Tablet Take 1 tablet every 12 hours Quantity: 14 Refills: 0 Ordered: 08-Jun-2022 Herber Helms PA-C Start : 08-Jun-2022 Active Completed/Discontinued Medications Medication Drug Class(es) Dates Sig (Normalized) Sig (Original) oseltamivir 75 mg oral capsule (1 source) Neuraminidase Inhibitor Start: 05-16-2023 End: 11-09-2024 take 1 capsule by mouth twice daily Oseltamivir (Tamiflu) 75 mg capsule Discontinued 75 mg PO TWICE A DAY 10 5 0 May 16, 2023 1:00am November 09, 2024 2:29pm Problems Problem Classification Problem Date Documented Date Episodic/Chronic Diabetes mellitus with complications (2 sources) Type 2 diabetes mellitus with hyperglycemia; Translations: [Hyperglycemia due to type 2 diabetes mellitus] Onset: 05-07-2023 05-24-2023 Chronic Diabetes mellitus without complication (2 sources) Hyperglycemia 05-02-2023 Episodic E Codes: Fall (1 source) Accidental fall ; Translations: [Unspecified fall, initial encounter] 05-24-2023 Episodic E Codes: Natural/environment (1 source) Cat bite - wound; Translations: [Bitten by cat, initial encounter] 11-09-2024 Episodic Influenza (1 source) Influenza due to Influenza A virus; Translations: [Influenza due to other identified influenza virus with other respiratory manifestations] 05-24-2023 Episodic Malaise and fatigue (2 sources) Asthenia; Translations: [Weakness] 05-02-2023 Episodic Other ear and sense organ disorders (1 source) Impacted cerumen; Translations: [Impacted cerumen] Episodic Otitis media and related conditions (1 source) Acute otitis media; Translations: [Unspecified otitis media] Episodic Unclassified (1 source) Cough, unspecified; Translations: [Cough, unspecified] Onset: 06-17-2023 Viral infection (1 source) Respiratory syncytial virus infection; Translations: [Other specified viral diseases] 05-24-2023 Episodic Results Test Name Value Interpretation Reference Range Facility [facility] 05-21-2024 [facility] Telephone (AGGASTACC) ---- ALMAS WILSON ([id number]) 1955 F [facility] Date Time Provider Department 05/21/24 DANIELLE JACKSON During your visit today, we recorded the following information about you: Silvia Balderas 05/21/2024 3:50 PM Signed Left voicemail for patient to call back to schedule a appointment based on referral for screening for malignant neoplasm of colon Silvia Balderas Allergies As of Date: 05/21/2024 (Not on File) Date Reviewed: Never Reviewed Reason for Visit: Appointment [[id number]] Problem List As Of Date: 05/21/2024 (None) Encounter Status:Closed by SILVIA BALDERAS on 06/01/24 Normal [facility] Brain/Head without Contrasto n 05-16-2023 Brain/Head without Contrast [facility] Imaging Services [address] [place] [address] Brain/Head without Contrast MR#: [id number] Acct: [id number] Name: ALMAS WILSON Rep #: [id number] : 1955 F 67 From: Gasper Savage MD PCP: DAY NAVA Status: REG ER Study: Brain/Head without Contrast Date of Exam: 04/28 01/19 Exam# [id number] Ordering Dr: Anatoliy Vegas MD -[id number] STUDY: CT BRAIN WITHOUT CONTRAST REASON FOR EXAM: Female, 67 years old. Headache after trauma RADIATION DOSAGE (If Supplied By Facility): CTDIvol = ( 44.99 ) mGy, DLP = ( 796.11 ) mGycm TECHNIQUE: Transaxial CT imaging of the brain was performed without administration of intravenous contrast material. Individualized dose optimization techniques were used for this CT. COMPARISON: No relevant priors. FINDINGS: Normal soft tissue structures. Normal calvarium. Normal size ventricles and extra-axial spaces for the patient''s age. Normal white matter tracts of the cerebral hemispheres. Normal basal ganglia and thalami. Normal brainstem. Normal cerebellum. There is no intracranial hemorrhage. There are no findings of an acute ischemic infarction. Normal visualized paranasal sinuses. CT/Brain/Head without Contrast IMPRESSION: Chronic involutional changes of the brain, no acute hemorrhage. Electronically Signed: Mervin Savage MD at 14:07 EST , CC: Dr. Anatoliy Vegas MD; DAY NAVA Sales Branch Manager: Signed Normal [facility] CBC W/Diff, Automatedon 04-28 Absolute Lymph 0.56 X10 3/uL Low 0.83-4.51 [facility] Comment on above: Performed By: #### L 500.4050, L501.4020, L100.0100 #### [facility] [address] [place], [address] Absolute Neut 4.4 X10 3/uL Normal 2.0-7.7 [facility] Comment on above: Performed By: #### L 500.4050, L501.4020, L100.0100 #### [facility] [address] [place], [address] Basophils/100 WBC (Bld) 0.2 % Normal 0-1 [facility] Comment on above: Performed By: #### L 500.4050, L501.4020, L100.0100 #### [facility] [address] [place], [address] Eosinophils/100 WBC (Bld) 0.0 % Normal 0-5 [facility] Comment on above: Performed By: #### L 500.4050, L501.4020, L100.0100 #### [facility] [address] [place], [address] Erythrocyte distribution width (RBC) [Ratio] 14.2 % Normal 11.6-14.6 [facility] Comment on above: Performed By: #### L 500.4050, L501.4020, L100.0100 #### [facility] [address] [place], [address] Hematocrit (Bld) [Volume fraction] 38.0 % Normal 37-47 [facility] Comment on above: Performed By: #### L 500.4050, L501.4020, L100.0100 #### [facility] [address] [place], [address] Hemoglobin (Bld) [Mass/Vol] 12.5 g/dL Normal 12.0-15.0 [facility] Comment on above: Performed By: #### L 500.4050, L501.4020, L100.0100 #### [facility] [address] [place], [address] IG% 0.400 Normal 0.0-0.9 [facility] Comment on above: Result Comment: IG% - Immature Granulocytes (promyelocytes, myelocytes and metamyelocytes) > 1% indicates that a LEFT SHIFT is Present. Performed By: #### L 500.4050, L501.4020, L100.0100 #### [facility] [address] [place], [address] Lymphocytes/100 WBC (Bld) 10.3 % Low 19-41 [facility] Comment on above: Performed By: #### L 500.4050, L501.4020, L100.0100 #### [facility] [address] [place], [address] MCH (RBC) [Entitic mass] 26.8 pg Low 27.0-32.0 [facility] Comment on above: Performed By: #### L 500.4050, L501.4020, L100.0100 #### [facility] [address] [place], [address] MCHC (RBC) [Mass/Vol] 32.9 g/dL Normal 32-36 [facility] Comment on above: Performed By: #### L 500.4050, L501.4020, L100.0100 #### [facility] [address] [place], [address] MCV (RBC) [Entitic vol] 81.4 fL Normal 81-99 [facility] Comment on above: Performed By: #### L 500.4050, L501.4020, L100.0100 #### [facility] [address] [place], [address] Monocytes/100 WBC (Bld) 8.4 % Normal 0-10 [facility] Comment on above: Performed By: #### L 500.4050, L501.4020, L100.0100 #### [facility] [address] [place], [address] Neutrophils/100 WBC (Bld) 80.7 % High 47-70 [facility] Comment on above: Performed By: #### L 500.4050, L501.4020, L100.0100 #### [facility] [address] [place], [address] Nucleated RBC (Bld) [#/Vol] 0 10*3/uL Normal 0-5 [facility] Comment on above: Performed By: #### L 500.4050, L501.4020, L100.0100 #### [facility] [address] [place], [address] Platelet mean volume (Bld) [Entitic vol] 11.0 fL Normal 6.2-12.0 [facility] Comment on above: Performed By: #### L 500.4050, L501.4020, L100.0100 #### [facility] [address] [place], [address] Platelets (Bld) [#/Vol] 194 10*3/uL Normal 150-450 [facility] Comment on above: Performed By: #### L 500.4050, L501.4020, L100.0100 #### [facility] [address] [place], [address] RBC (Bld) [#/Vol] 4.67 10*6/uL Normal 4.2-5.4 [facility] Comment on above: Performed By: #### L 500.4050, L501.4020, L100.0100 #### [facility] [address] [place], [address] RDW SD 41.6 fl Normal 35.1-43.9 [facility] Comment on above: Performed By: #### L 500.4050, L501.4020, L100.0100 #### [facility] [address] [place], [address] WBC (Bld) [#/Vol] 5.5 10*3/uL Normal 4.4-11.0 [facility] Comment on above: Performed By: #### L 500.4050, L501.4020, L100.0100 #### [facility] [address] [place], [address] Chest PA and Lateralon 05-16 Chest PA and Lateral [facility] Imaging Services [address] [place] [address] Chest PA and Lateral MR#: [id number] Acct: [id number] Name: ALMAS WILSON Rep #: [id number] : 1955 F 67 From: Gasper Savage MD PCP: DAY NAVA Status: [facility] ER Study: Chest PA and Lateral Date of Exam: 05/16/23 Exam# [id number] Ordering Dr: Anatoliy Vegas MD -[id number] STUDY: X-RAY CHEST REASON FOR EXAM: Female, 67 years old. cough, weakness TECHNIQUE: PA and lateral views of the chest. COMPARISON: None. FINDINGS: EKG leads overlie the chest Chronic interstitial changes in both lung gaytan without a superimposed acute pulmonary process. Normal size heart. Normal mediastinum and alla. Normal visualized pulmonary arteries. Normal visualized aortic arch and descending thoracic aorta. Normal visualized thoracic spine. Normal visualized ribs, clavicles, and shoulders. There is no demonstrated abnormality of the visualized soft tissue structures of the upper abdomen. RAD/Chest PA and Lateral IMPRESSION: Chronic interstitial changes, no superimposed acute pulmonary process Electronically Signed: Mervin Savage MD at 14:09 EST , CC: Dr. Anatoliy Vegas MD; DAY NAVA Sales Branch Manager: Signed Normal [facility] Comprehensive Metabolic Prof ilon 05-16-2023 Albumin [Mass/Vol] 3.4 g/dL Normal 3.2-5.0 [facility] Comment on above: Order Comment: 'TROP ' Serial specimen #1, #2 or #3: 1 Performed By: #### L 500.4050, L501.4020, L100.0100 #### [facility] [address] [place], [address] Albumin/Globulin [Mass ratio] 0.8 {ratio} Low 0.9-2.4 [facility] Comment on above: Order Comment: 'TROP ' Serial specimen #1, #2 or #3: 1 Performed By: #### L 500.4050, L501.4020, L100.0100 #### [facility] [address] [place], [address] ALK P 117 U/L Normal 45-117 [facility] Comment on above: Order Comment: 'TROP ' Serial specimen #1, #2 or #3: 1 Performed By: #### L 500.4050, L501.4020, L100.0100 #### [facility] [address] [place], [address] ALT [Catalytic activity/Vol] 29 U/L Normal 13-56 [facility] Comment on above: Order Comment: 'TROP ' Serial specimen #1, #2 or #3: 1 Performed By: #### L 500.4050, L501.4020, L100.0100 #### [facility] [address] [place], [address] AST [Catalytic activity/Vol] 24 U/L Normal 15-37 [facility] Comment on above: Order Comment: 'TROP ' Serial specimen #1, #2 or #3: 1 Performed By: #### L 500.4050, L501.4020, L100.0100 #### [facility] [address] [place], [address] Bilirubin [Mass/Vol] 0.20 mg/dL Normal 0.20-1.00 [facility] Comment on above: Order Comment: 'TROP ' Serial specimen #1, #2 or #3: 1 Result Comment: For patients on eltrombopag therapy, use of Dimension Blanding TBIL is not recommended. Performed By: #### L 500.4050, L501.4020, L100.0100 #### [facility] [address] [place], [address] BUN/CRE 12.4 RATIO Normal 10-20 [facility] Comment on above: Order Comment: 'TROP ' Serial specimen #1, #2 or #3: 1 Performed By: #### L 500.4050, L501.4020, L100.0100 #### [facility] [address] [place], [address] CA,Total 9.1 mg/dL Normal 8.5-10.1 [facility] Comment on above: Order Comment: 'TROP ' Serial specimen #1, #2 or #3: 1 Performed By: #### L 500.4050, L501.4020, L100.0100 #### [facility] [address] [place], [address] Chloride [Moles/Vol] 99 mmol/L Normal 98-107 [facility] Comment on above: Order Comment: 'TROP ' Serial specimen #1, #2 or #3: 1 Performed By: #### L 500.4050, L501.4020, L100.0100 #### [facility] [address] [place], [address] CO2 [Moles/Vol] 26.0 mmol/L Normal 21.0-32.0 [facility] Comment on above: Order Comment: 'TROP ' Serial specimen #1, #2 or #3: 1 Performed By: #### L 500.4050, L501.4020, L100.0100 #### [facility] [address] [place], [address] Creatinine [Mass/Vol] 1.13 mg/dL High 0.55-1.02 [facility] Comment on above: Order Comment: 'TROP ' Serial specimen #1, #2 or #3: 1 Result Comment: The validity of the calculated GFR GFRAA in patients over 70 years has not been determined. Clinical correlation is essential. Performed By: #### L 500.4050, L501.4020, L100.0100 #### [facility] [address] [place], [address] ECRCL 45.92 ml/min Normal [facility] Comment on above: Order Comment: 'TROP ' Serial specimen #1, #2 or #3: 1 Performed By: #### L 500.4050, L501.4020, L100.0100 #### [facility] [address] [place], [address] EST GFR - AA 61 mL/min Normal >60 [facility] Comment on above: Order Comment: 'TROP ' Serial specimen #1, #2 or #3: 1 Result Comment: Afri can Ukrainian GFR Calc Performed By: #### L 500.4050, L501.4020, L100.0100 #### [facility] [address] [place], [address] GAP 7 Normal 5-15 [facility] Comment on above: Order Comment: 'TROP ' Serial specimen #1, #2 or #3: 1 Performed By: #### L 500.4050, L501.4020, L100.0100 #### [facility] [address] [place], [address] GFR/1.73 sq M.predicted among non-blacks MDRD (S/P/Bld) [Vol rate/Area] 51 mL/min/{1.73_m2} Low >60 [facility] Comment on above: Order Comment: 'TROP ' Serial specimen #1, #2 or #3: 1 Result Comment: Non- GFR Calc Performed By: #### L 500.4050, L501.4020, L100.0100 #### [facility] [address] [place], [address] Globulin (S) [Mass/Vol] 4.2 g/dL Normal 2.2-4.2 [facility] Comment on above: Order Comment: 'TROP ' Serial specimen #1, #2 or #3: 1 Performed By: #### L 500.4050, L501.4020, L100.0100 #### [facility] [address] [place], [address] Glucose [Mass/Vol] 340 mg/dL High 74-106 [facility] Comment on above: Order Comment: 'TROP ' Serial specimen #1, #2 or #3: 1 Result Comment: Gluc ose result greater than or equal to 200 mg/dL suggests DIABETES MELLITUS per A.D.A. criteria. Performed By: #### L 500.4050, L501.4020, L100.0100 #### [facility] [address] [place], [address] Potassium [Moles/Vol] 4.1 mmol/L Normal 3.5-5.1 [facility] Comment on above: Order Comment: 'TROP ' Serial specimen #1, #2 or #3: 1 Performed By: #### L 500.4050, L501.4020, L100.0100 #### [facility] [address] [place], [address] Sodium [Moles/Vol] 132 mmol/L Low 136-145 [facility] Comment on above: Order Comment: 'TROP ' Serial specimen #1, #2 or #3: 1 Performed By: #### L 500.4050, L501.4020, L100.0100 #### [facility] [address] [place], [address] T PROT 7.6 g/dL Normal 6.4-8.2 [facility] Comment on above: Order Comment: 'TROP ' Serial specimen #1, #2 or #3: 1 Performed By: #### L 500.4050, L501.4020, L100.0100 #### [facility] [address] [place], [address] Urea nitrogen [Mass/Vol] 14 mg/dL Normal 7-18 [facility] Comment on above: Order Comment: 'TROP ' Serial specimen #1, #2 or #3: 1 Performed By: #### L 500.4050, L501.4020, L100.0100 #### [facility] [address] [place], [address] Emergency Department Summary on 05-16-2023 Emergency Department Summary [facility] Medical Records Department [address] [place] [address] Emergency Department Summary 05/16/23 MR#: [id number] Acct: [id number] Name: ALMAS WILSON Rep #: [id number] : 1955 67 From: Anatoliy Vegas MD PCP: DAY NAVA Status:REG ER Location: ED HPI History of Present Illness Chief Complaint: Fall Informant: patient and family (Son who is comfortable fully translating since patient speaks Hungarian no [place] Korean) Associated Symptoms Associated Symptoms ED: cough Narrative Narrative: Patient has had a cough, subjective fever and chills, malaise since 2-3 days ago. Very weak today and yesterday to the point today where she was trying to walk and she fell while in the bathroom. She does not remember the fall, son initially called this confusion but agrees that other than not remembering the fall, she seems to be oriented and at her baseline otherwise. She does not have any pain from the fall. However, she has been in bed other than that and is unable to stand or walk on her own, which she does normally when she is well. Family member was ill that she had contact with lately, the son states that the family member tested negative for COVID but otherwise unknown illness, still having symptoms. Patient has had some diarrhea. Very little oral intake in the last couple days. No dyspnea but her chest hurts from coughing according to what the son states she has told him. No GI symptoms as far as pain or nausea/vomiting. [facility] Medical History Diabetes Hypertension Home Medications oseltamivir 75 mg capsule (Tamiflu) 75 mg PO BID 5 days #10 caps 05/16/23 [Rx Last Taken Unknown] Allergy/AdvReac Type Severity Reaction Status Date / Time No Known Allergies Allergy Verified 05/16/23 13:16 Family History no significant family his Surgical History no surgical history Social History household members: family Smoking Status: Never smoker ROS ROS ED Constitutional Constitutional ED: Reports body ache(s), chills, fatigue, fever(s), malaise and subjective; Denies headache(s) Eyes Eyes: Denies change in vision or diplopia ENT ENT ED: Denies rhinorrhea or sore throat Cardiovascular Cardiovascular: Reports chest pain; Denies palpitations Respiratory/Chest Respiratory/Chest: Reports cough and dyspnea on exertion; Denies dyspnea Gastrointestinal Gastrointestinal: Reports diarrhea; Denies abdominal pain, nausea or vomiting Genitourinary Genitourinary ED: Denies dysuria or hematuria Musculoskeletal Musculoskeletal: Reports myalgias; Denies back pain or neck pain Integumentary Denies abscess or rash Neurologic Neurologic: Reports weakness; Denies headache(s) or paresthesias Psychiatric Psychiatric: Denies suicidal ideation or suicidal thoughts EXAM Physical Exam Const Vital Signs: 05/16/23 13:16 Temperature 97.0 F L Temperature Source Temporal Pulse Rate 101 H Respiratory Rate 16 Blood Pressure 149/73 H Blood Pressure Mean 98 Pulse Ox 95 Oxygen Delivery Method Room Air Positive well nourished, well developed and obese Constitutional Narrative: Malaised-appearing, no distress General Appearance ED: well developed and NAD Nutritional Appearance: obese HEENT Reports moist mucous membranes normocephalic and atraumatic Eyes PERRL and EOMs intact bilaterally Neck full ROM, no lymphadenopathy and supple Resp normal respiratory effort and clear to auscultation bilaterally Cardio regular rate, regular rhythm and no murmurs Rate: Negative for tachycardic GI non-tender and non-distended Auscultation: normoactive bowel sounds Palpation: soft Back/Spine no CVA tenderness General Back: other FROM Extremity normal to inspection and no calf tenderness Extremity Narrative: Painless range of motion all joints x 4 General Extremety ED: Negative for edema, pulses abnormal or tenderness General Extremity: Negative for edema or pulses abnormal Neuro oriented x3, CN's II-XII intact bilaterally and no sensory deficits noted Sensorium / Orientation: awake and alert Motor Exam: general weakness Psych mental status grossly normal Skin no rashes or lesions noted and no wounds MDM MDM MDM Narrative Medical decision making narrative: CT of the head was obtained in order to rule out intracranial injury, I reviewed the images and report which I agree with, negative for anything acute. Chest x-ray 2 views of my interpretation shows no acute pneumonia. Her labs are noted and are unremarkable, she does have a white count that is low with a bit of a leftward trend, no significant bandemia. Her glucose was elevated 340. I did look through her Dexcom wirel (more content not included)... Normal [facility] L501.4020on 05-16-2023 TROPONIN-I HS 12 pg/mL Normal 3.0-54.0 [facility] Comment on above: Order Comment: 'TROP ' Serial specimen #1, #2 or #3: 1 Result Comment: Andreas hale Note: New Test Units and Gender Specific Reference Ranges. For more information see Policy Stat Procedure Blanding High Sensitivity Troponin (TNIH) and attachments. Performed By: #### L 500.4050, L501.4020, L100.0100 ####[facility] [address] [place], [address] M100.678on 05-16-2023 M100.678 Normal Reference Range = Negative GeneXpert Instrument, PCR method COV + FLU + RSV PCR Copy of report sent to Infection Control Printer [id number] 05/16/23 1449 PAULETTE. RESULTS CALLED TO DTENNANT 05/16/23 1449 Suyapa Cardoso. REPORT READ BACK BY SAME. SARS-CoV-2 (COVID 19) Negative INFLUENZA A Positive A INFLUENZA A Positive A RSV PCR Positive A FLUA RSV Normal [facility] Comment on above: Performed By: #### M 100.678, L400.0001 #### [facility] [address] [place], [address] Urinalysis, Completeon 05-16 BACTERIA Normal None Seen [facility] Comment on above: Order Comment: COLLE CTOR TO SPECIFY Result Comment: Canc elled via OM: MD Ordered Performed By: #### M 100.678, L400.0001 #### [facility] [address] [place], [address] BILIRUBIN UR[address] Normal Negative [facility] Comment on above: Order Comment: COLLE CTOR TO SPECIFY Result Comment: Canc elled via OM: MD Ordered Performed By: #### M 100.678, L400.0001 #### [facility] [address] [place], [address] Clarity (U) Normal Clear [facility] Comment on above: Order Comment: COLLE CTOR TO SPECIFY Result Comment: Canc elled via OM: MD Ordered Performed By: #### M 100.678, L400.0001 #### [facility] [address] [place], [address] Color (U) Normal Yellow [facility] Comment on above: Order Comment: COLLE CTOR TO SPECIFY Result Comment: Canc elled via OM: MD Ordered Performed By: #### M 100.678, L400.0001 #### [facility] [address] [place], [address] EPI,SQUAMOUS Normal 5-10 [facility] Comment on above: Order Comment: COLLE CTOR TO SPECIFY Result Comment: Canc elled via OM: MD Ordered Performed By: #### M 100.678, L400.0001 #### [facility] [address] [place], [address] GLUCOSE, UR Normal Normal [facility] Comment on above: Order Comment: COLLE CTOR TO SPECIFY Result Comment: Canc elled via OM: MD Ordered Performed By: #### M 100.678, L400.0001 #### [facility] [address] [place], [address] KETONE UR Normal Negative [facility] Comment on above: Order Comment: COLLE CTOR TO SPECIFY Result Comment: Canc elled via OM: MD Ordered Performed By: #### M 100.678, L400.0001 #### [facility] [address] [place], [address] LEUK ESTERASE Normal Negative [facility] Comment on above: Order Comment: COLLE CTOR TO SPECIFY Result Comment: Canc elled via OM: MD Ordered Performed By: #### M 100.678, L400.0001 #### [facility] [address] [place], [address] Mucus Ql (Urine sed) Normal [facility] Comment on above: Order Comment: ANALI CTOR TO SPECIFY Result Comment: Canc elled via OM: MD Ordered Performed By: #### M 100.678, L400.0001 #### [facility] [address] [place], [address] Nitrite Ql (U) Normal Negative [facility] Comment on above: Order Comment: COLLE CTOR TO SPECIFY Result Comment: Canc elled via OM: MD Ordered Performed By: #### M 100.678, L400.0001 #### [facility] [address] [place], [address] OCCULT BLOOD-UR Normal Negative [facility] Comment on above: Order Comment: COLLE CTOR TO SPECIFY Result Comment: Canc elled via OM: MD Ordered Performed By: #### M 100.678, L400.0001 #### [facility] [address] [place], [address] pH UR Normal 5.0 - 8.0 [facility] Comment on above: Order Comment: COLLE CTOR TO SPECIFY Result Comment: Canc elled via OM: MD Ordered Performed By: #### M 100.678, L400.0001 #### [facility] [address] [place], [address] PROT DIPSTX Normal Negative [facility] Comment on above: Order Comment: COLLE CTOR TO SPECIFY Result Comment: Canc elled via OM: MD Ordered Performed By: #### M 100.678, L400.0001 #### [facility] [address] [place], [address] RBC Normal 0-5 [facility] Comment on above: Order Comment: COLLE CTOR TO SPECIFY Result Comment: Canc elled via OM: MD Ordered Performed By: #### M 100.678, L400.0001 #### [facility] [address] [place], [address] SP.GR. DIPSTX Normal 1.002-1.030 [facility] Comment on above: Order Comment: COLLE CTOR TO SPECIFY Result Comment: Canc elled via OM: MD Ordered Performed By: #### M 100.678, L400.0001 #### [facility] [address] [place], [address] [facility] Comment on above: Order Comment: COLLE CTOR TO SPECIFY Result Comment: Canc elled via OM: MD Ordered Performed By: #### M 100.678, L400.0001 #### [facility] [address] [place], [address] [facility] Comment on above: Order Comment: COLLE CTOR TO SPECIFY Result Comment: Canc elled via OM: MD Ordered Performed By: #### M 100.678, L400.0001 #### [facility] [address] [place], [address] WBC Normal 0-5 [facility] Comment on above: Order Comment: ANALI CTOR TO SPECIFY Result Comment: Canc elled via OM: MD Ordered Performed By: #### M 100.678, L400.0001 #### [facility] [address] [place], [address] Urine Cultureon 05-04-2023 URC Below infection level. GNR Poss Pseudomonas sp [place] Count <[address] [facility] Comment on above: Performed By: #### M 100.2200 #### [facility] [address] [place], [address] Absolute lymphocyte countOrd ered By: Vianca Leal on 05-02-2023 Lymphocytes Auto (Unsp spec) [#/Vol] 2.27 10*3/uL 0.83-4.51 [facility] Basophil percentageOrdered B y: Vianca Leal on 05-02-2023 Basophil percentage 0-5 SEEN /hpf 0-5 [facility] Basophils/100 WBC (Bld) 0.7 % 0-1 [facility] Bilirubin [Mass/Vol] 0.40 mg/dL 0.20-1.00 [facility] Comment on above: For patients on eltr ombopag therapy, use of Dimension Blanding TBIL is not recommended. Chloride [Moles/Vol] 103 mmol/L 98-107 [facility] Eosinophils/100 WBC (Bld) 0.7 % 0-5 [facility] Glucose [Mass/Vol] 386 mg/dL 74-106 [facility] Comment on above: Glucose result great er than or equal to 200 mg/dLsuggests DIABETES MELLITUS per A.D.A. criteria. Neutrophils (Bld) [#/Vol] 4.6 10*3/uL 2.0-7.7 [facility] Neutrophils/100 WBC (Bld) 61.5 % 47-70 [facility] Potassium [Moles/Vol] 4.6 mmol/L 3.5-5.1 [facility] Protein [Mass/Vol] 7.5 g/dL 6.4-8.2 [facility] Sodium [Moles/Vol] 137 mmol/L 136-145 [facility] WBC (Bld) [#/Vol] 7.4 10*3/uL 4.4-11.0 [facility] Bedside Glucoseon 05-02-2023 FINGERSTICK GLU 293 mg/dL High 74-106 [facility] Comment on above: Result Comment: ASHLEY GEMENT OF PATIENT CARE PER NURSING PROTOCOL Performed By: #### L 501.080 ####[facility] [address] [place], [address] FINGERSTICK GLU 389 mg/dL High [address] [place] [address] Comment on above: Result Comment: ASHLEY GEMENT OF PATIENT CARE PER NURSING PROTOCOL Performed By: #### L 501.080 ####[facility] [address] [place], [address] FINGERSTICK GLU 356 mg/dL High [address] [place] [address] Comment on above: Result Comment: ASHLEY GEMENT OF PATIENT CARE PER NURSING PROTOCOL Performed By: #### L 501.080 #### [facility] [address] [place], [address] Bilirubin Test strip Ql (U)O rdered By: Vianca Leal on 05-02-2023 Bilirubin Ql (U) Negative Negative [facility] Blood erythrocytes count (nu mber/volume)Ordered By: Vianca Leal on 05-02-2023 RBC (Bld) [#/Vol] 4.88 10*6/uL 4.2-5.4 [facility] Blood hemoglobin measurement (mass/volume)Ordered By: Vianca Leal on 05-02-2023 Hemoglobin (Bld) [Mass/Vol] 12.9 g/dL 12.0-15.0 [facility] Blood lymphocytes/100 leukoc ytesOrdered By: Vianca Leal on 05-02-2023 Lymphocytes/100 WBC (Bld) 30.6 % 19-41 [facility] Blood monocytes/100 leukocyt esOrdered By: Vianca Leal on 05-02-2023 Monocytes/100 WBC (Bld) 6.2 % 0-10 [facility] Blood platelet mean volumeOr dered By: Vianca Leal on 05-02-2023 Platelet mean volume (Bld) [Entitic vol] 11.1 fL 6.2-12.0 [facility] CBC W/Diff, Automatedon Absolute Lymph 2.27 X10 3/uL Normal 0.83-4.51 [facility] Comment on above: Performed By: #### L 100.0100, L500.4050 ####[facility] [address] [place], [address] Absolute Neut 4.6 X10 3/uL Normal 2.0-7.7 [facility] Comment on above: Performed By: #### L 100.0100, L500.4050 ####[facility] [address] [place], [address] Basophils/100 WBC (Bld) 0.7 % Normal 0-1 [facility] Comment on above: Performed By: #### L 100.0100, L500.4050 ####[facility] [address] [place], [address] Eosinophils/100 WBC (Bld) 0.7 % Normal 0-5 [facility] Comment on above: Performed By: #### L 100.0100, L500.4050 ####[facility] [address] [place], [address] Erythrocyte distribution width (RBC) [Ratio] 14.4 % Normal 11.6-14.6 [facility] Comment on above: Performed By: #### L 100.0100, L500.4050 ####[facility] [address] [place], [address] Hematocrit (Bld) [Volume fraction] 39.5 % Normal 37-47 [facility] Comment on above: Performed By: #### L 100.0100, L500.4050 ####[facility] [address] [place], [address] Hemoglobin (Bld) [Mass/Vol] 12.9 g/dL Normal 12.0-15.0 [facility] Comment on above: Performed By: #### L 100.0100, L500.4050 ####[facility] [address] [place], [address] IG% 0.300 Normal 0.0-0.9 [facility] Comment on above: Result Comment: IG% - Immature Granulocytes (promyelocytes, myelocytes and metamyelocytes) > 1% indicates that a LEFT SHIFT is Present. Performed By: #### L 100.0100, L500.4050 ####[facility] [address] [place], [address] Lymphocytes/100 WBC (Bld) 30.6 % Normal 19-41 [facility] Comment on above: Performed By: #### L 100.0100, L500.4050 ####[facility] [address] [place], [address] MCH (RBC) [Entitic mass] 26.4 pg Low 27.0-32.0 [facility] Comment on above: Performed By: #### L 100.0100, L500.4050 ####[facility] [address] [place], [address] MCHC (RBC) [Mass/Vol] 32.7 g/dL Normal 32-36 [facility] Comment on above: Performed By: #### L 100.0100, L500.4050 ####[facility] [address] [place], [address] MCV (RBC) [Entitic vol] 80.9 fL Low 81-99 [facility] Comment on above: Performed By: #### L 100.0100, L500.4050 ####[facility] [address] [place], [address] Monocytes/100 WBC (Bld) 6.2 % Normal 0-10 [facility] Comment on above: Performed By: #### L 100.0100, L500.4050 ####[facility] [address] [place], [address] Neutrophils/100 WBC (Bld) 61.5 % Normal 47-70 [facility] Comment on above: Performed By: #### L 100.0100, L500.4050 ####[facility] [address] [place], [address] Nucleated RBC (Bld) [#/Vol] 0 10*3/uL Normal 0-5 [facility] Comment on above: Performed By: #### L 100.0100, L500.4050 ####[facility] [address] [place], [address] Platelet mean volume (Bld) [Entitic vol] 11.1 fL Normal 6.2-12.0 [facility] Comment on above: Performed By: #### L 100.0100, L500.4050 ####[facility] [address] [place], [address] Platelets (Bld) [#/Vol] 293 10*3/uL Normal 150-450 [facility] Comment on above: Performed By: #### L 100.0100, L500.4050 ####[facility] [address] [place], [address] RBC (Bld) [#/Vol] 4.88 10*6/uL Normal 4.2-5.4 [facility] Comment on above: Performed By: #### L 100.0100, L500.4050 ####[facility] [address] [place], [address] RDW SD 42.3 fl Normal 35.1-43.9 [facility] Comment on above: Performed By: #### L 100.0100, L500.4050 ####[facility] [address] [place], [address] WBC (Bld) [#/Vol] 7.4 10*3/uL Normal 4.4-11.0 [facility] Comment on above: Performed By: #### L 100.0100, L500.4050 ####[facility] [address] [place], [address] Comprehensive Metabolic Prof [facility] 05-02-2023 Albumin [Mass/Vol] 3.6 g/dL Normal 3.2-5.0 [facility] Comment on above: Performed By: #### L 100.0100, L500.4050 ####[facility] [address] [place], [address] Albumin/Globulin [Mass ratio] 0.9 {ratio} Normal 0.9-2.4 [facility] Comment on above: Performed By: #### L 100.0100, L500.4050 ####[facility] [address] [place], [address] ALK P 153 U/L High 45-117 [facility] Comment on above: Performed By: #### L 100.0100, L500.4050 ####[facility] [address] [place], [address] ALT [Catalytic activity/Vol] 24 U/L Normal 13-56 [facility] Comment on above: Performed By: #### L 100.0100, L500.4050 ####[facility] [address] [place], [address] AST [Catalytic activity/Vol] 8 U/L Low 15-37 [facility] Comment on above: Performed By: #### L 100.0100, L500.4050 ####[facility] [address] [place], [address] Bilirubin [Mass/Vol] 0.40 mg/dL Normal 0.20-1.00 [facility] Comment on above: Result Comment: For patients on eltrombopag therapy, use of Dimension Blanding TBIL is not recommended. Performed By: #### L 100.0100, L500.4050 ####[facility] [address] [place], [address] BUN/CRE 18.6 RATIO Normal 10-20 [facility] Comment on above: Performed By: #### L 100.0100, L500.4050 ####[facility] [address] [place], [address] CA,Total 9.5 mg/dL Normal 8.5-10.1 [facility] Comment on above: Performed By: #### L 100.0100, L500.4050 ####[facility] [address] [place], [address] Chloride [Moles/Vol] 103 mmol/L Normal 98-107 [facility] Comment on above: Performed By: #### L 100.0100, L500.4050 ####[facility] [address] [place], [address] CO2 [Moles/Vol] 25.0 mmol/L Normal 21.0-32.0 [facility] Comment on above: Performed By: #### L 100.0100, L500.4050 ####[facility] [address] [place], [address] Creatinine [Mass/Vol] 1.13 mg/dL High 0.55-1.02 [facility] Comment on above: Result Comment: The validity of the calculated GFR GFRAA in patients over 70 years has not been determined. Clinical correlation is essential. Performed By: #### L 100.0100, L500.4050 ####[facility] [address] [place], [address] ECRCL 33.75 ml/min Normal [facility] Comment on above: Performed By: #### L 100.0100, L500.4050 ####[facility] [address] [place], [address] EST GFR - AA 61 mL/min Normal >60 [facility] Comment on above: Result Comment: Afri can Ukrainian GFR Calc Performed By: #### L 100.0100, L500.4050 ####[facility] [address] [place], [address] GAP 9 Normal 5-15 [facility] Comment on above: Performed By: #### L 100.0100, L500.4050 ####[facility] [address] [place], [address] GFR/1.73 sq M.predicted among non-blacks MDRD (S/P/Bld) [Vol rate/Area] 51 mL/min/{1.73_m2} Low >60 [facility] Comment on above: Result Comment: Non- GFR Calc Performed By: #### L 100.0100, L500.4050 ####[facility] [address] [place], [address] Globulin (S) [Mass/Vol] 3.9 g/dL Normal 2.2-4.2 [facility] Comment on above: Performed By: #### L 100.0100, L500.4050 ####[facility] [address] [place], [address] Glucose [Mass/Vol] 386 mg/dL High 74-106 [facility] Comment on above: Result Comment: Gluc ose result greater than or equal to 200 mg/dL suggests DIABETES MELLITUS per A.D.A. criteria. Performed By: #### L 100.0100, L500.4050 ####[facility] [address] [place], [address] Potassium [Moles/Vol] 4.6 mmol/L Normal 3.5-5.1 [facility] Comment on above: Performed By: #### L 100.0100, L500.4050 ####[facility] [address] [place], [address] Sodium [Moles/Vol] 137 mmol/L Normal 136-145 [facility] Comment on above: Performed By: #### L 100.0100, L500.4050 ####[facility] [address] [place], [address] T PROT 7.5 g/dL Normal 6.4-8.2 [facility] Comment on above: Performed By: #### L 100.0100, L500.4050 ####[facility] [address] [place], [address] Urea nitrogen [Mass/Vol] 21 mg/dL High 7-18 [facility] Comment on above: Performed By: #### L 100.0100, L500.4050 ####[facility] [address] [place], [address] Determination of erythrocyte mean corpuscular volume (MCV)Ordered By: Vianca Leal on 05-02-2023 MCV (RBC) [Entitic vol] 80.9 fL 81-99 [facility] Emergency Department Summary on 05-02-2023 Emergency Department Summary [facility] Medical Records Department [address] [place] [address] Emergency Department Summary 05/02/23 MR#: [id number] Acct: [id number] Name: ALMAS WILSON Rep #: [id number] : [id number] 67 From: Vianca Leal DO PCP: DAY NAVA Status:DEP ER Location: ED HPI History of Present Illness Chief Complaint: Hyperglycemia Informant: patient Narrative Narrative: Patient is a 67-year-old female, Hungarian speaking with her son at the bedside to translate, presenting for concerns of high blood sugars. Patient is diabetic on Trulicity. She receives her care through access [facility] in [place]. They have been uptitrating her Trulicity however she is continue to have blood sugar elevations. Patient notes that sometimes her blood sugar is higher and she feels wobbly and unsteady. She has intermittent headache. Denies any vision changes, cough, chest pain, shortness of breath, fever, chills or flulike symptoms. Does have a history of urinary tract infections. Other medications include metformin, lisinopril and atorvastatin. Does get some intermittent nausea and vomiting but attributes that to a side effect of the Trulicity as well as heartburn. Son checked her blood sugar today for fingerstick blood glucose check it was 487 which is what prompted him to come to the ER. Patient did take 36 units at 1030 this morning. PFSH PFS Medical History Diabetes Hypertension Allergy/AdvReac Type Severity Reaction Status Date / Time No Known Allergies Allergy Verified 05/02/23 13:49 Family History no significant family his Surgical History no surgical history Social History household members: family Smoking Status: Never smoker ROS ROS ED Constitutional Constitutional ED: Denies chills, fever(s) or sweats Eyes Eyes: Denies blurry vision or change in vision ENT ENT ED: Denies rhinorrhea or sore throat Cardiovascular Cardiovascular: Denies chest pain Respiratory/Chest Respiratory/Chest: Denies cough Gastrointestinal Gastrointestinal: Reports nausea and vomiting; Denies abdominal pain or constipation Genitourinary Genitourinary ED: Denies dysuria or hematuria Musculoskeletal Musculoskeletal: Denies arthralgias or myalgias Neurologic Neurologic: Reports headache(s); Denies paresthesias or weakness Endocrine Endocrinology: Reports other Details: elevated blood sugar Hematologic/Lymphat ic Hematologic/Lymphat ic: Denies easy bleeding or easy bruising EXAM Physical Exam Const Vital Signs: 05/02/23 13:49 05/02/23 13:47 05/02/23 15:21 Temperature 98.3 F Temperature Source Temporal Pulse Rate 91 83 Respiratory Rate 16 93 H Respiratory Effort Normal Non-Labored Respiratory Pattern Normal Blood Pressure 167/69 H Blood Pressure Mean 101 Pulse Ox 96 94 Oxygen Delivery Method Room Air Room Air 05/02/23 18:00 Temperature Temperature Source Pulse Rate 84 Respiratory Rate 16 Respiratory Effort Respiratory Pattern Blood Pressure 144/69 H Blood Pressure Mean 94 Pulse Ox 97 Oxygen Delivery Method Positive well nourished and well developed General Appearance ED: well developed and NAD HEENT Reports dry mucous membranes Mouth ED: Yes dry mucous membranes Mouth: dry mucous membranes Neck supple Chest Wall inspection of chest normal and palpation of chest normal Resp normal respiratory effort and clear to auscultation bilaterally Cardio regular rate, regular rhythm and no murmurs GI normal to inspection, nondistended, normoactive bowel sounds and non-tender Extremity normal to inspection Neuro oriented x3, CN's II-XII intact bilaterally and no sensory deficits noted Neuro Narrative: Coordination with normal fbrvmv-jz-fjhn and ambulation Sensorium / Orientation: alert Motor Exam: Negative for general weakness Psych mental status grossly normal Skin no rashes or lesions noted and no wounds MDM MDM MDM Narrative Medical decision making narrative: Is evaluated for elevated blood glucose. She has had a vague symptoms of weakness and confusion is going on for about a month. No focal neurologic deficits. Her symptoms are waxing and waning so do not suspect an acute cervical vascular injury. I will obtain basic labs, urinalysis and, EKG and give 1 L of IV fluid. 293 on repeat after liter of IV fluid. Lab work largely unremarkable except for hyperglycemia. Glucose is 386. She is a normal anion gap. She is a mildly elevated alkaline phosphatase of uncertain clinical significance. Denies any abdominal pain. Urinalysis shows 0-5 white blood cells with 25 leuk esterase but no bacteria. Will send off for culture. She does have glucose (more content not included)... Normal [facility] Glucose Glucometer (BldC) [M ass/Vol]Ordered By: Vianca Leal on 05-02-2023 Glucose [Mass/Vol] 293 mg/dL 74-106 [facility] Comment on above: MANAGEMENT OF PATIEN T CARE PER NURSING PROTOCOL Hematocrit Auto (Bld) [Volum e fraction]Ordered By: Vianca Leal on 05-02-2023 Hematocrit (Bld) [Volume fraction] 39.5 % 37-47 [facility] Ketones Test strip Ql (U)Ord ered By: Vianca Leal on 05-02-2023 Ketones Ql (U) Negative Negative [facility] - Chemistry and C hemistry - challengeOrdered By: Vianca Leal on 05-02-2023 ALP [Catalytic activity/Vol] 153 U/L 45-117 [facility] ALT [Catalytic activity/Vol] 24 U/L 13-56 [facility] CO2 [Moles/Vol] 25.0 mmol/L 21.0-32.0 [facility] Globulin (S) [Mass/Vol] 3.9 g/dL 2.2-4.2 [facility] Urea nitrogen/Creatinine [Mass ratio] 18.6 mg/mg 10-20 [facility] - Hematology and Cell countsOrdered By: Vianca Leal on 05-02-2023 Erythrocyte distribution width (RBC) [Entitic vol] 42.3 fL 35.1-43.9 [facility] Erythrocyte distribution width (RBC) [Ratio] 14.4 % 11.6-14.6 [facility] Immature granulocytes/100 WBC (Bld) 0.300 % 0.0-0.9 [facility] Comment on above: IG% - Immature Granu locytes (promyelocytes, myelocytes and metamyelocytes) > 1% indicates that a LEFT SHIFT is Present. MCH (RBC) [Entitic mass] 26.4 pg 27.0-32.0 [facility] Nucleated RBC/100 WBC (Bld) [Ratio] 0 % 0-5 [facility] MCHC Auto (RBC) [Mass/Vol]Or dered By: Vianca Leal on 05-02-2023 MCHC (RBC) [Mass/Vol] 32.7 g/dL 32-36 [facility] Mucus LM Ql (Urine sed)Order ed By: Vianca Leal on 05-02-2023 Mucus Ql (Urine sed) 0 SEEN /hpf [facility] Nitrite Test strip Ql (U)Ord ered By: Vianca Leal on 05-02-2023 Nitrite Ql (U) Negative Negative [facility] No Panel InformationOrdered By: Vianca Leal on 05-02-2023 Estimated Creatinine Clearance Calc 33.75 ml/min [facility] Estimated GFR (MDRD) Amer 61 mL/min >60 [facility] Comment on above: GFR Calc Estimated GFR (MDRD) Non-Af Amer 51 mL/min >60 [facility] Comment on above: Non- GFR Calc Platelets bldOrdered By: Rosetta Leal on 05-02-2023 Platelets (Bld) [#/Vol] 293 10*3/uL 150-450 [facility] Protein Test strip Ql (U)Ord ered By: Vianca Leal on 05-02-2023 Protein Ql (U) 30 mg/dl Negative [facility] Serum or plasma albumin phong urement (mass/volume)Ordered By: Vianca Leal on 05-02-2023 Albumin [Mass/Vol] 3.6 g/dL 3.2-5.0 [facility] Serum or plasma albumin/glob ulin mass ratioOrdered By: Vianca Leal on 05-02-2023 Albumin/Globulin [Mass ratio] 0.9 {ratio} 0.9-2.4 [facility] Serum or plasma calcium phong urement (mass/volume)Ordered By: Vianca Leal on 05-02-2023 Calcium [Mass/Vol] 9.5 mg/dL 8.5-10.1 [facility] Serum or plasma creatinine m easurement (mass/volume)Ordered By: Vianca Leal on 05-02-2023 Creatinine [Mass/Vol] 1.13 mg/dL 0.55-1.02 [facility] Comment on above: The validity of the calculated GFR & GFRAA in patients over 70 years has not been determined. Clinical correlation is essential. Serum or plasma urea nitroge n measurement (mass/volume)Ordered By: Vianca Leal on 05-02-2023 Urea nitrogen [Mass/Vol] 21 mg/dL 7-18 [facility] Squamous epithelial cells de tection in urine sediment by light microscopyOrdered By: Vainca Leal on 05-02-2023 Epithelial cells.squamous LM Ql (Urine sed) 0 SEEN /hpf 5-10 [facility] Thin prep Papanicolaou smear with manual screeningOrdered By: Vianca Leal on 05-02-2023 Thin prep Papanicolaou smear with manual screening 8 U/L 15-37 [facility] Thin prep Papanicolaou smear with manual screening 9 5-15 [facility] Urinalysis, Completeon 05-02 WBC 0-5 SEEN Normal 0-5 [facility] Comment on above: Order Comment: CLEAN CATCH Performed By: #### L 400.0001 ####[facility] [address] [place], [address] BACTERIA 0 SEEN Normal None Seen [facility] Comment on above: Order Comment: CLEAN CATCH Performed By: #### L 400.0001 ####[facility] [address] [place], [address] EPI,SQUAMOUS 0 SEEN Normal 5-10 [facility] Comment on above: Order Comment: CLEAN CATCH Performed By: #### L 400.0001 ####[facility] [address] [place], [address] Mucus Ql (Urine sed) 0 SEEN Normal [facility] Comment on above: Order Comment: CLEAN CATCH Performed By: #### L 400.0001 ####[facility] [address] [place], [address] RBC 0 SEEN Normal 0-5 [facility] Comment on above: Order Comment: CLEAN CATCH Performed By: #### L 400.0001 ####[facility] [address] [place], [address] Urine blood detectionOrdered By: Vianca Leal on 05-02-2023 RBC Ql (U) 10 /ul Negative [facility] RBC Ql (U) 0 SEEN /hpf 0-5 [facility] Urine clarityOrdered By: Rosetta Leal on 05-02-2023 Clarity (U) Clear Clear [facility] Urine color determinationOrd ered By: Vianca Leal on 05-02-2023 Color (U) Yellow Yellow [facility] Urine glucose detectionOrder ed By: Vianca Leal on 05-02-2023 Glucose Ql (U) 1000 mg/dl Normal [facility] Urine leukocyte esterase det ection by dipstickOrdered By: Vianca Leal on 05-02-2023 Leukocyte esterase Test strip Ql (U) 25 /ul Negative [facility] Urine pHOrdered By: Vianca gamboa on 05-02-2023 pH (U) 6.0 [pH] 5.0 - 8.0 [facility] Urine sediment bacteria coun t by microscopy (number/high power field)Ordered By: Vianca Leal on 05-02-2023 Bacteria LM.HPF (Urine sed) [#/Area] 0 /[HPF] None Seen [facility] Urine specific gravity measu rementOrdered By: Vianca Leal on 05-02-2023 Specific gravity (U) [Rel density] 1.015 1.002-1.030 [facility] Urobilinogen Auto test strip Ql (U)Ordered By: Vianca Leal on 05-02-2023 Urobilinogen Ql (U) Normal mg/dl Normal [facility] MG Breast Screeningon 2022 IMPRESSION: BENIGN FINDING There is no mammographic evidence of malignancy. A 1 year screening mammogram is recommended. [place] wang/vineet:02/12/20 23 14:29:44 Hoe Worker(s): Ang Herbert)(M), [facility] [place] letter sent: Normal over 40 Mammogram BI-RADS: 2 Benign finding Multiple national specialty organizations have released breast cancer screening guidelines for women at average risk for developing breast cancer - guidelines that are based on both evidence and opinion, yet differ on when to start and how often to screen for breast cancer. With representation from Breast Imaging, Internal Medicine, Women's Health, Family Medicine, and Medical/Surgical Oncology, the [facility] has carefully reviewed the data and reached the following consensus: 1) All women should engage in shared decision-making with their providers to decide when to start and how often to screen; 2) All women should have the opportunity to start screening mammography at age 40; 3) For women ages 45-55, we recommend annual screening mammograms; 4) For women ages 55 and over, we support both the transition from an annual to a biennial interval if this aligns more with patient's values and preferences, or continuation with annual screening; 5) All women should discuss with their providers when to stop screening mammograms. Sales Branch Manager: Vineet Transcribe Date/Time: Feb 11 2023 11:10A Dictated by : LONDON GARCIA MD This examination was interpreted and the report reviewed and electronically signed by: LONDON GARCIA MD on Feb 11 2023 2:29PM EST [facility] [employer] * * *Final Report* * * DATE OF EXAM: Feb 11 2023 11:23AM AT 0581 - [facility] SCREENING / PROCEDURE REASON: SCREENING * * * * Physician Interpretation * * * * #[id number] - [facility] SCREENING BILATERAL DIGITAL SCREENING MAMMOGRAM WITH CAD: 02/11/2023 HISTORY: Screening / Screening Mammogram-Patient reports NO symptoms. RESULT: TECHNIQUE: The study was acquired using full field digital technology and interpreted from soft copy. Current study was also evaluated with a Computer Aided Detection (CAD). Comparison is made to exam dated: 03/13/2021 mammogram - [facility] [place]. There are scattered areas of fibroglandular density. There are benign vascular calcifications in both breasts. No significant masses, calcifications, or other findings are seen in either breast. There has been no significant interval change. [facility] Provider, [facility] [place] - 02/11/2023 * * *Final Report* * * DATE OF EXAM: Feb 11 2023 11:23AM AT 0581 - [facility] SCREENING / PROCEDURE REASON: SCREENING * * * * Physician Interpretation * * * * #[id number] - [facility] SCREENING BILATERAL DIGITAL SCREENING MAMMOGRAM WITH CAD: 02/11/2023 HISTORY: Screening / Screening Mammogram-Patient reports NO symptoms. RESULT: TECHNIQUE: The study was acquired using full field digital technology and interpreted from soft copy. Current study was also evaluated with a Computer Aided Detection (CAD). Comparison is made to exam dated: 03/13/2021 mammogram - [facility] [place]. There are scattered areas of fibroglandular density. There are benign vascular calcifications in both breasts. No significant masses, calcifications, or other findings are seen in either breast. There has been no significant interval change. IMPRESSION IMPRESSION: BENIGN FINDING There is no mammographic evidence of malignancy. A 1 year screening mammogram is recommended. [place] wang/vineet:02/12/20 14:29:44 Hoe Worker(s): Mateo Herbert(Nini)(M), [facility] [place] letter sent: Normal over 40 Mammogram BI-RADS: 2 Benign finding Multiple national specialty organizations have released breast cancer screening guidelines for women at average risk for developing breast cancer - guidelines that are based on both evidence and opinion, yet differ on when to start and how often to screen for breast cancer. With representation from Breast Imaging, Internal Medicine, Women's Health, Family Medicine, and Medical/Surgical Oncology, the [facility] has carefully reviewed the data and reached the following consensus: 1) All women should engage in shared decision-making with their providers to decide when to start and how often to screen; 2) All women should have the opportunity to start screening mammography at age 40; 3) For women ages 45-55, we recommend annual screening mammograms; 4) For women ages 55 and over, we support both the transition from an annual to a biennial interval if this aligns more with patient's values and preferences, or continuation with annual screening; 5) All women should discuss with their providers when to stop screening mammograms. Sales Branch Manager: Vineet Transcribe Date/Time: Feb 11 2023 11:10A Dictated by : LONDON GARCIA MD This examination was interpreted and the report reviewed and electronically signed by: LONDON GARCIA MD on Feb 11 2023 2:29PM [facility] Radiology Study observation (narrative) [facility] MG Breast ScreeningOrdered B y: [facility] Provider on 02-11-2023 [facility] Tobacco Screening.on 023 Adult depression screening assessment No [facility] Work Phone: Fall risk assessment b) One or more falls in the last year [facility] Work Phone: Tobacco use status [facility] b) No [facility] Work Phone: LELE SCREENINGon 03-13-2021 [facility] Vital Signs Date Time Vital Sign Value Performing Clinician Facility 11-09-2024 16:02-0400 Body temperature 98.6 [degF] [employer] ELECTRIC MULE OPERATOR-C Work Phone: [facility] 11-09-2024 16:02-0400 Diastolic blood pressure 78 mm[Hg] [employer] E[employer]RIC MULE OPERATOR-C Work Phone: [facility] 11-09-2024 16:02-0400 Heart rate 89 /min Eunice [place] ELECTRIC MULE OPERATOR-C Work Phone: [facility] 11-09-2024 16:02-0400 Respiratory rate 18 /min Eunice Cathy ELECTRIC MULE OPERATOR-C Work Phone: [facility] 11-09-2024 16:02-0400 SaO2% (BldA) [Mass fraction] 98 % [employer] ELECTRIC MULE OPERATOR-C Work Phone: [facility] 11-09-2024 16:02-0400 Systolic blood pressure 130 mm[Hg] [employer] ELECTRIC MULE OPERATOR-C Work Phone: [facility] 11-09-2024 14:25-0400 Body height 152.4 cm [employer] ELECTRIC MULE OPERATOR-C Work Phone: [facility] 11-09-2024 14:25-0400 Body mass index (BMI) [Ratio] 37.3 kg/m2 [employer] ELECTRIC MULE OPERATOR-C Work Phone: [facility] 11-09-2024 14:25-0400 Body weight 86.63 kg Eunice Morgan ELECTRIC MULE OPERATOR-C Work Phone: [facility] 05-02-2023 18:00-0500 Diastolic blood pressure 69 mm[Hg] [facility] 05-02-2023 18:00-0500 Heart rate 84 /min [facility] 05-02-2023 18:00-0500 Respiratory rate 16 /min [facility] 05-02-2023 18:00-0500 SaO2% (BldA) [Mass fraction] 97 % [facility] 05-02-2023 18:00-0500 Systolic blood pressure 144 mm[Hg] [facility] 05-02-2023 13:49-0500 Body height 152.4 cm [facility] 05-02-2023 13:49-0500 Body mass index (BMI) [Ratio] 36.8 kg/m2 [facility] 05-02-2023 13:49-0500 Body temperature 98.3 [degF] [facility] 05-02-2023 13:49-0500 Body weight 85.5 kg [facility] 06-08-2022 15:34-0500 Body height 154.94 cm Day [facility]ava Work Phone: [facility] Work Phone: 06-08-2022 15:34-0500 Body mass index (BMI) [Ratio] 34.01 kg/m2 [employer] Work Phone: [facility] Work Phone: 06-08-2022 15:34-0500 Body surface area Derived from formula 1.81 m2 [facility] Work Phone: [facility] Work Phone: 06-08-2022 15:34-0500 Body temperature 98 [degF] Day N[employer] Work Phone: -[facility] Work Phone: 06-08-2022 15:34-0500 Body weight 81.65 kg Day Nava Work Phone: [facility] Work Phone: 06-08-2022 15:34-0500 Diastolic blood pressure 66 mm[Hg] [facility] Work Phone: [facility] Work Phone: 06-08-2022 15:34-0500 Heart rate 75 /min Day [facility]ava Work Phone: [facility] Work Phone: 06-08-2022 15:34-0500 Respiratory rate 16 /min [facility] Work Phone: [facility] Work Phone: 06-08-2022 15:34-0500 SaO2% (BldA) [Mass fraction] 97 % [facility] Work Phone: [facility] Work Phone: 06-08-2022 15:34-0500 Systolic blood pressure 132 mm[Hg] Day N[employer] Work Phone: [facility] Work Phone: 06-08-2022 15:34-0500 5 1 Day Nava Work Phone: [facility] Work Phone: Comment on above: [employer] Encounters Encounter Date Encounter Type Care Provider Facility Start: 11-09-2024 End: 11-09-2024 Emergency department patient visit Eunice Morgan ELECTRIC MULE OPERATOR-C Work Phone: -Emergency Department Work Phone: Start: 05-21-2024 End: 06-01-2024 Telephone encounter Danielle Jackson PA-C Work Phone: [facility] Comment on above: Appointment Start: 05-16-2023 End: 05-16-2023 Emergency department patient visit STACEY ZHENG Facility:[facility] Start: 05-02-2023 End: 05-02-2023 Emergency department patient visit [facility] Facility:[facility] Start: 05-02-2023 End: 05-02-2023 Emergency department patient visit [facility] Work Phone: Start: 02-11-2023 Documentation procedure Mammog gurjit Coordinator [facility] Start: 02-11-2023 Letter encounter Mammography Coordinator [facility] ANCILLARY AREA NOT LISTED Start: 02-11-2023 End: 02-11-2023 Subsequent hospital visit by physician Screen [facility] [place] [facility]LE[facility] Comment on above: Screening Start: 06-08-2022 Office outpatient ne w 30 minutes Day Nava Work Phone: [facility] Work Phone: Start: 03-13-2021 Documentation procedure Mammog gurjit Coordinator [facility] Start: 03-13-2021 Letter encounter Mammography Coordinator [facility] ANCILLARY AREA NOT LISTED Start: 03-13-2021 End: 03-13-2021 Subsequent hospital visit by physician [facility] [place] [facility] MAMMO REFLECTIONS [facility] Comment on above: screening Procedures Date Procedure Procedure Detail Performing Clinician Start: 02-11-2023 Screening mammograph y bi 2-view breast inc cad Day N[facility] Work Phone: Start: 03-13-2021 End: 03-13-2021 Screening mammography bi 2-view breast inc cad [facility] Work Phone: Plan of Treatment Date Care Activity Detail Author Start: 2028 RSV Vaccine (1 - 1-d ose 75+ series) RSV Vaccine (1 - 1-dose 75+ series) [facility] Start: 11-09-2024 [facility] Start: 09-14-2024 End: 09-14-2024 Patient encounter procedure 09/14/2024 1:00 PM EDT Office Visit [facility] [address] [place] [address] Eunice Webb PA-C [address] [place] [address] rf/malignant neoplasm of colon [facility] Comment on above: rf/malignant neoplas m of colon Start: 04-28-2024 Advance Directive Discussion Advance Directive Discussion [facility] Start: 02-12-2024 Screening for malign ant neoplasm of breast Mammogram Screening [facility] Start: 02-08-2024 Screening for malign ant neoplasm of colon [facility] Start: 12-28-2023 Covid-19 Vaccine () Covid-19 Vaccine () [facility] Start: 12-28-2023 Covid-19 Vaccine () Covid-19 Vaccine () [facility] Start: 12-28-2023 Influenza vaccination Influenza Vacc ine (#1) [facility] Start: 05-02-2023 [facility] Start: 05-02-2023 [facility] Start: 05-02-2023 Bacteria identified in Urine by Culture Urine Culture [facility] Start: 04-28-2023 Advance Directive Discussion Advance Directive Discussion [facility] Start: 12-27-2022 Covid-19 Vaccine ( season) Covid-19 Vaccine () [facility] Start: 12-27-2022 Influenza vaccination Influenza Vacc ine (#1) [facility] Start: 04-28-2022 Advance Directive Discussion Advance Directive Discussion [facility] Start: 04-28-2022 Depression Assessment Depression Ass essment [facility] Start: 03-13-2022 Mammography [facility] Start: 03-20-2021 COVID-19 VACCINE (3 - Booster for Moderna series) COVID-19 VACCINE (3 - Booster for Moderna series) [facility] Start: 12-27-2020 Influenza vaccination INFLUENZA (#1) [facility] Start: 10-06-2020 Urine microalbumin profile DTaP,Tdap,Td Vaccine (1 - Tdap) [facility] Start: 2018 ADVANCE DIRECTIVE DISCUSSION ADVANCE DIRECTIVE DISCUSSION [facility] Start: 2018 BONE DENSITY BONE DENSITY [facility] Start: 2018 Bone Density Screening Bone Density Screening [facility] Start: 2018 Pneumococcal Vaccine : 65+ (1 - PCV) Pneumococcal Vaccine: 65+ (1 - PCV) [facility] Start: 2018 Pneumococcal Vaccine : 65+ (1 of 1 - PCV) Pneumococcal Vaccine: 65+ (1 of 1 - PCV) [facility] Start: 2018 PNEUMOVAX AGE 65 AND OVER WITH 5YR LOOKBACK (#1) PNEUMOVAX AGE 65 AND OVER WITH 5YR LOOKBACK (#1) [facility] Start: 2018 Screening for osteoporosis Bone Density Screening [facility] Start: 2013 RSV Vaccine (1 - 1-d ose 60+ series) RSV Vaccine (1 - 1-dose 60+ series) [facility] Start: 10-20-2003 Pneumococcal Vaccine : 50+ (1 of 1 - PCV) Pneumococcal Vaccine: 50+ (1 of 1 - PCV) [facility] Start: 10-20-2003 SHINGRIX VACCINE (1 of 2) SHINGRIX VACCINE (1 of 2) [facility] Start: 1998 COLOGUARD (FIT-DNA) COLOGUARD (FIT-D NA) [facility] Start: 1998 Colonoscopy COLONOSCOPY [facility] Start: 1998 COLORECTAL CANCER SCREENING COLORECTAL CANCER SCREENING [facility] Start: [address] COLONOGRAPHY [facility] Start: 1998 DIABETES SCREEN DIABETES SCREEN [facility] Start: 1998 Diabetes Screening Diabetes Screenin g [facility] Start: 1998 FECAL OCCULT BLOOD FECAL OCCULT BLOO D [facility] Start: 1998 Lipid 1996 panel - S brittany or Plasma Lipid Screening [facility] Start: 1998 Lipid panel Lipid Screening [facility] Start: 1998 LIPID SCREEN LIPID SCREEN [facility] Start: 1998 Screening for malign ant neoplasm of colon [facility] Start: 1998 SIGMOIDOSCOPY SIGMOIDOSCOPY [facility] Start: 1972 Urine microalbumin profile DTAP,TDAP,TD (1 - Tdap) [facility] Start: 10-20-1971 Anxiety Screening Anxiety Screening [facility] Start: 10-20-1971 Depression Screening Depression Scre sumit [facility] Start: 10-20-1971 HEPATITIS C SCREENING HEPATITIS C [facility] Start: 10-20-1971 Hepatitis C screening Hepatitis C [facility] Start: 1965 Adult depression screening assessment DEPRESSION SCREENING [facility] Patient Education [facility] Work Phone: Patient referral [facility] Work Phone: Payers Date Payer Category Payer Self-pay 2023 Unknown [id number] 2022 Medicare [facility] MEDICARE [facility] AARP [employer] CARE PPO [id number] 2022-Present [phone] [address] [address] [place] [address] PPO [id number] 2020 Medicare MEDICARE [employer] GENERIC MEDICARE ADVANTAGE GENERIC [id number] 2020-Present [phone] [address] [address] [place] [address] Indemnity [id number] Unknown [facility] Unknown AARP MCR ADV [id number] Unknown [id number] Unknown [id number] Social History Date Type Detail Facility Start: 05-02-2023 Tobacco smoking status IAIS Tobacco smoking consumption unknown [facility] Start: 1955 Sex Assigned At Not on file [facility] Exposure to SARS-CoV-2 (event) Not sure [facility] Gender identity Not on file [facility] Start: 1955 Sex Assigned At Female [facility] Start: 07-15-2025 Tobacco smoking status NHIS Never smoked tobacco (finding) [facility] Mental Status Date Assessment Result Facility 05-02-2023 Cognitive function Level Of Cons ciousness Awake;Alert;Appropriate [facility] Work Phone: Clinical Notes 03-13-2021 to 11-09-2024 Note Date & Type Note Facility 11-09-[address] [facility] 11-09-2024 Discharge summary Note Date/Time November 09, 2024 4:09pm [facility] Medical Records Department [address] [place] [address] Emergency Department Summary 11/09/24 MR#: [id number] Acct: [id number] Name: ALMAS WILSON Rep #:[id number] : 1955 69 From: Mark Her MD PCP: Eunice Morgan Status:PRE ER Location: ED HPI History of Present Illness HPI Narrative: 69-year-old female history of hypertension diabetes. She was helping take care of stray cats yesterday. One of the kittens came in a house as she was getting out of the house she went to pick it up and turned around and bit her on her right thumb and index finger and left index finger. She has some mild swelling. No fever. No streaks. Chief Complaint: Bite Informant: patient and family Occured/Mechanism Comment: Cat bite bilateral hands yesterday. Onset/Context/Timing Onset: Yesterday Context: Gradual Onset Timing: Continuous Quality of Pain: Dull and Aching Current Severity: Mild Maximum Severity: Mild Narrative Narrative: 69-year-old diabetic female By Bite right index finger and right thumb and left index finger occurred yesterday.. She is right-hand dominant. Prior similar symptoms: No Recent Illness/Hospitalization: No ROS ROS ED ROS Narrative Denies recent illness. Constitutional Constitutional ED: Denies chills or fever(s) Eyes Eyes: Denies blurry vision ENT ENT ED: Denies ear pain Cardiovascular Cardiovascular: Denies chest pain or palpitations Respiratory/Chest Respiratory/Chest: Denies cough or dyspnea Gastrointestinal Gastrointestinal: Denies abdominal pain Genitourinary Genitourinary ED: Denies dysuria or hematuria Musculoskeletal Musculoskeletal: Denies arthralgias Integumentary Denies abscess or Abrasions Neurologic Neurologic: Denies headache(s) Psychiatric Psychiatric: Denies anxiety Endocrine Endocrinology: Denies polydipsia Hematologic/Lymphatic Hematologic/Lymphatic: Denies easy bleeding, easy bruising or lymphadenopathy Allergic/Immunologic Allergic/Immunologic ED: Denies mouth swelling, tongue swelling or urticaria PFSH PFSH Medical History Hypertension Diabetes Home Medications ?Medication ?Instructions ?Recorded ?Last Taken ?Type amoxicillin 875 mg-potassium 1 tab PO BID 10 days #20 tabs 11/09/24 Unknown Rx clavulanate 125 mg tablet Allergy/AdvReac Type Severity Reaction Status Date / Time No Known Allergies Allergy Verified 11/09/24 14:29 Social History household members: family housing: house Smoking Status: Never smoker EXAM Physical Exam Narrative Exam Narrative: 69-year-old female sitting upright in bed. Vital signs are stable afebrile. Noacute distress. Son at bedside. Vital signs are stable and afebrile. H EENT exam pupils round react light. Mytrex membranes. Neck nontender no lymphadenopathy. Lungs clear to auscultation. Heart regular rhythm no murmur. Abdomen soft nontender. Moving all 4 extremities. Neurovascular intact. Left index finger swollen bite henson consistent with early infection. Right index finger and thumb similar. Multiple bite henson. No lymphangitic streaking. There is no swelling and/or palm of her hand on either side or her forearm. There is no axillary lymphadenopathy. No forearm tenderness or swelling. Neurologically she is awake alert. Const Vital Signs: 11/09/24 14:25 11/09/24 15:54 11/09/24 16:02 Temperature 97.8 F 98.6 F 98.6 F Temperature Source Oral Oral Pulse Rate 91 89 89 Respiratory Rate 17 18 18 Blood Pressure 125/59 H 130/78 H 130/78 H Blood Pressure Mean 81 95 95 Pulse Ox 95 98 98 Oxygen Delivery Method Room Air Room Air Positive well nourished and well developed; Negative for cachectic, contracturesor unkempt General Appearance ED: well developed and NAD; Negative for unkempt, cachectic or contractures Nutritional Appearance: Negative for cachectic HEENT Reports moist mucous membranes normocephalic and atraumatic; Negative for trauma or tenderness Eyes PERRL and EOMs intact bilaterally Neck full ROM and no lymphadenopathy Resp normal respiratory effort and clear to auscultation bilaterally Cardio regular rate, regular rhythm, S1 normal heart sound, S2 normal heart sound and no murmurs GI non-tender, non-distended and no masses Auscultation: normoactive bowel sounds Palpation: soft; Negative for tender, guarding or rebound tenderness present Back/Spine no CVA tenderness General Back: Negative for CVA tenderness Cervical Spine: Negative for cervical spine tenderness Thoracic Spine / Upper Back: Negative for thoracic spinal tenderness Lumbar Spine / Lower Back: Negative for lumbar spinal tenderness Extremity full ROM; Negative for normal to inspection Extremity Narrative: Swelling and bite henson to the right index finger and thumb but no lymphangitic streaking. Minimal swelling. Tenderness. Similar to the left index finger with swelling and tenderness and bite henson. Again no lymphangitic streaking. Able to do flexion extension. Neuro oriented x3 and CN's II-XII intact bilaterally Sensorium / Orientation: alert, oriented to person, oriented to place and oriented to time Motor Exam: strength 5/5 throughout Psych mental status grossly normal and thought process normal Appearance: Negative for unkempt Skin skin turgor normal Skin Narrative: Cat bites bilateral hands. Lesions: no lesions Rashes: No no rashes MDM MDM MDM Narrative Medical decision making narrative: 69-year-old diabetic female Bites from yesterday to both index fingers and rightthumb. Early infection. She was started on Augmentin twice a day first dose given here. Family and patient were strongly instructed if this gets worse justreturn for admission. She does not want admission at this time. History & Record Review Discussion w/independent historian: Patient and Family Additional record(s) reviewed:: Prior inpatient record, Prior outpatient record,Prior ED visit and Prior labs Discharge Plan Triage Chief Complaint: Bite ED Provider: Mark Her Dx/Rx/DC Orders Clinical Impression: Cat bite Instructions: ED Cat Bite Prescriptions: New amoxicillin-pot clavulanate 875-125 mg tablet 1 tab PO BID 10 Days Qty: 20 0RF Primary Care Provider: Eunice Morgan Referrals: Eunice Morgan, ELECTRIC MULE OPERATOR-C [Primary Care Provider] - As Needed Activity Restrictions/Additional Instructions: Ice and elevate your hands decrease pain and swelling Motrin and Tylenol for pain and swelling. The antibiotic Augmentin twice a day till gone. Return to the emergency department if increasing pain, increasing redness, increasing swelling, streaks up your arm or you are feeling worse. We have to watch is really closely this and get infected and worse quickly. If seen just return Print Language: Hungarian Disposition Disposition: Home, Self Care What to do if you have Problems For any increased pain, shortness of breath, bleeding, nausea or vomiting, chestpain, or any unexpected problems, contact your Primary Care Provider. Call [facility] ([phone]) or report to the closest Emergency Room. Call 911 if necessary. 11/09/24 1602 <Electronically signed by Mark Her MD> Cosigner Signature (if applicable): CC: Eunice Morgan ~ Signed [facility] Work Phone: [phone]) 813-859201-24-2025 Telephone encounter Note* Telephone Encounter - Silvia Balderas - 05/21/2024 3:49 PM EST Left voicemail for patient to call back to schedule a appointment based on referral for screening for malignant neoplasm of colon Silvia Balderas [facility]01-24-2025 Miscellaneous Notes* Telephone Encounter - Silvia Balderas - 05/21/2024 3:49 PM EST Left voicemail for patient to call back to schedule a appointment based on referral for screening for malignant neoplasm of colon Silvia Balderas documented in [facility] encounter[facility] Miscellaneous Notes* Letter - Coordinator, Mammography - 02/11/2023 2:29 PM EDT [address] [place] [address] February 12, 2023 PID: [id number] Almas Wilson [address] [place] [id number] Dear Ms. Wilson, We are pleased to inform you that [...] report will be kept on file at [facility] as part of your permanent medical record and are available for your continuing care. Thank you for allowing us to help in meeting your health care needs. Sincerely, Dr. Garcia Interpreting Radiologist [facility] [place] (Normal over 40) documented in this encounterSelect [facility] History of Present illness Narrative* Sachi Khan RT(R) - 02/11/2023 11:00 AM EDT Radiology Service Progress Note PATIENT NAME: Almas Wilson DATE OF SERVICE: February 11, 2023 TIME: 11:29 AM PATIENT IDENTITY VERIFICATION COMPLETED USING TWO (2) IDENTIFIERS: Name and Date of confirmedby patient verbally. FALL SCREENING: Has the patient had 2 falls in the last year or 1 fall with injury or currently using an Ambulatory Assistive Device (Walker, Cane, Wheelchair, Crutches, etc.)? No PATIENT GENDER DATA: Female. status: : No status: NO. PATIENT RELEVANT IMPLANT DATA REVIEWED: Yes RADIOLOGY DEPARTMENT: Mammography PERIPHERAL IV DATA: Not applicable SIGNED BY: RT Gerardo(Nini) February 11, 2023 11:29 AM documented in this encounterSelect [facility] History of Present illness Narrative* Patient 66-year-old female presenting with her son for sore throat ear pain. Most of the information was taken from the son as the patient speaks very little [place]. The son translated most of it. Patient's [...] chest pain shortness breath arm pain dizziness syncop e, rashes numbness or tingling, weakness. Patient has no known drug allergies * Gen: As Noted in HPI * Head: As Noted in HPI * Eyes: As Noted in HPI * ENT: As Noted in HPI * Cardiac:As Noted in HPI * Pulmonary: As Noted in HPI * Heme/lymph: As Noted in HPI * GI: As Noted in HPI * : As Noted in HPI * Musculoskeletal: As Noted in HPI * Skin: As Noted in HPI * Neuro: As Noted in HPI * Psych:As Noted in HPI * Review of systems is otherwise negative unless stated above or in history of present illness. [facility] Work Phone: 1(440) 498-498111-16-2021 Miscellaneous Notes* Letter - Mammography Coordinator - 03/13/2021 12:36 PM EST [address] [place] [address] March 13, 2021 PID: [id number] Almas Wilson [address] [place] [address] [place] [address] Dear Ms. Wilson, We are pleased to inform you that [...] report will be kept on file at [facility] as part of your permanent medical record and are available for your continuing care. Thank you for allowing us to help in meeting your health care needs. Sincerely, Dr. Garcia Interpreting Radiologist [facility] (Normal over 40) documented in this encounterSelect [facility] History of Present illness Narrative* Sachi Khan RT(R) - 03/13/2021 11:40 AM EST Radiology Service Progress Note PATIENT NAME: Almas Wilson DATE OF SERVICE: March 13, 2021 TIME: 12:21 PM PATIENT IDENTITY VERIFICATION COMPLETED USING TWO (2) IDENTIFIERS: Name and Date of confirmedby patient verbally. FALL SCREENING: Has the patient [...] 13, 2021 12:21 PM documented in this encounterSelect [facility] DublinEvaluation noteNo assessment information availableWGlenbeigh Hospital Work Phone: Hospital Discharge instructions Additional Instructions While your blood sugar is elevated there is no signs of a diabetic emergency such as DKA. You were given small dose of insulin in the ER as well as IV fluids. Please follow-up with your primary care doctor on Friday for further titration/management of your blood sugar. Continue to adhere to a diabetic diet. Return to the ER if you have a progression or worsening of your symptoms. Continue to take your medications as prescribed.[facility] Work Phone: Hospital Discharge instructionsAdditional Instructions Ice and elevate your hands decrease pain and swelling Motrin and Tylenol for pain and swelling. The antibiotic Augmentin twice a day till gone. Return to the emergency department if increasing pain, increasing redness, increasing swelling, streaks up your arm or you are feeling worse. We have to watch is really closely this and get infected and worse quickly. If seen just returnWGlenbeigh Hospital Work Phone: Reason for referral (narrative)No reason for referral information availableWGlenbeigh Hospital Work Phone: Chief Complaint Sore throat, ear Chief Complaint and Reason for Visit Chief Complaint HYPERGLYCEMIA Chief Complaint Admit Date bite November 09, 2024 2:24 pm Advance Directives Advance Directive Response Recorded Date/ Time Living Will No May 02 3:21pm Power of Application Release Manager No May 02 024 3:21pm Advance Directive Response Recorded Date/ Time Do you have a Healthcare Power of Application Release Manager? No November 09, 2024 3:54pm Summary Purpose Family History No Family History Records FoundNo Family History Records Found Additional Source Comments Source Comments (unrecognize d section and content) In the event this informatio n is protected by the Federal Confidentiality of Alcohol and Drug Abuse Patient Records regulations: The Federal rules restrict any use of the information to criminally investigate or prosecute any alcohol or drug abuse patient.[facility] the event this information is protected by the Federal Confidentiality of Alcohol and Drug Abuse Patient Records regulations: The Federal rules restrict any use of the information to criminally investigate or prosecute any alcohol or drug abuse patient.[facility] Dublin[facility] the event this information is protected by the Federal Confidentiality of Alcohol and Drug Abuse Patient Records regulations: The Federal rules restrict any use of the information to criminally investigate or prosecute any alcohol or drug abuse patient.[facility] Dublin[facility] the event this information is protected by the Federal Confidentiality of Alcohol and Drug Abuse Patient Records regulations: The Federal rules restrict any use of the information to criminally investigate or prosecute any alcohol or drug abuse patient.[facility] Dublin[facility] the event this information is protected by the Federal Confidentiality of Alcohol and Drug Abuse Patient Records regulations: The Federal rules restrict any use of the information to criminally investigate or prosecute any alcohol or drug abuse patient.[facility] Reason for Visit (unrecogniz ed section and content) Reason Comments Radiology Mammogram Specialty Diagnoses / Procedures Referred By Tiny t Referred To Contact RADIO MAMMO REFLECTIONS [place]GE Diagnoses Encounter for general adult medical examination without abnormal findings screening Procedures SCREENING MAMMOGRAPHY BI 2-VIEW BREAST INC CAD MAMMOGRAM SCREEN EXTERNAL Day Nava [address] [place] [phone] Radio Mammo Reflections [place] [address] [place] [id number] Referral ID Status Reason Start Date Expiration Date Visits Re quested Visits Authorized [id number] Closed 04/28/2020 04/27/2021 1 1 Reason Comments Appointment Care Teams (unrecognized sec tion and content) 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 Mark Her MD Emergency Provider Active S tart: November 09, 2024 End: November 09, 2024 Goals (unrecognized section and content) Goals may be documented in a n alternate sectionGoals may be documented in an alternate section INFORMATION SOURCE (unrecogn ized section and content) DATE CREATED AUTHOR 06/24/2023 [facility] DATE CREATED AUTHOR AUTHOR'S JADIZ ATION 06/03/2024 [facility] FOR RECORDS PERTAINING TO PATIENTS WHO ARE [...] BE BASED ON THE PRIMARY CLINICAL RECORDS. [facility] [employer] [facility]. provides no warranty or guarantee of the accuracy or completeness of information in this document.
--- OUTSIDE RECORDS SUMMARY | 2024-11-09 22:17 | XMS RPT_ITS | CCD ---
Author Organization [facility] Care Team Providers Care Meat Processor Name Role Phone Day Nava Primary Care Provider [phone] Day Nava Unavailable Unavailable Unavailable Day Nava Primary Care Provider [phone] STACEY ZHENG Primary Care Unavailable Vianca Leal Attending Unavailable STACEY ZHENG Primary Care Unavailable Anatoliy Vegas Attending Unavailable Day Nava Primary Care Provider [phone] Day Nava DO Primary Care Provider Eunice Cortes Primary Care Provider Dr. Mark Her MD Emergency Provider [phone] Medications Current Medications Medication Drug Class(es) Dates [...] Test Name Value Interpretation Reference Range Facility [facility] 05-21-2024 [facility] Telephone (AGGASTACC) ---- ALMAS WILSON ([id number]) 1955 F [facility] Date Time Provider Department 05/21/24 DANIELLE JACKSON [...] Status:Closed by SILVIA BALDERAS on 06/01/24 Normal [facility] Brain/Head without Contrasto n 05-16-2023 Brain/Head without Contrast [facility] Imaging Services [address] [place] [address] Brain/Head without Contrast MR#: [id number] Acct: [id number] Name: ALMAS WILSON Rep #: [id number] : 1955 F 67 From: Gasper Savage MD PCP: DAY NAVA Status: REG ER Study: Brain/Head without Contrast Date of Exam: 04/28 01/19 Exam# [id number] Ordering Dr: Anatoliy Vegas MD -[id number] STUDY: CT BRAIN WITHOUT CONTRAST REASON [...] CC: Dr. Anatoliy Vegas MD; DAY NAVA Lithographic Press Operator Apprentice: Signed Normal [facility] CBC W/Diff, Automatedon 04-28 Absolute Lymph 0.56 X10 3/uL Low 0.83-4.51 [facility] Comment on above: Performed By: #### L 500.4050, L501.4020, L100.0100 #### [facility] [address] [place], [address] Absolute Neut 4.4 X10 3/uL Normal 2.0-7.7 [facility] Comment on above: Performed By: #### L 500.4050, L501.4020, L100.0100 #### [facility] [address] [place], [address] Basophils/100 WBC (Bld) 0.2 % Normal 0-1 [facility] Comment on above: Performed By: #### L 500.4050, L501.4020, L100.0100 #### [facility] [address] [place], [address] Eosinophils/100 WBC (Bld) 0.0 % Normal 0-5 [facility] Comment on above: Performed By: #### L 500.4050, L501.4020, L100.0100 #### [facility] [address] [place], [address] Erythrocyte distribution width (RBC) [Ratio] 14.2 % Normal 11.6-14.6 [facility] Comment on above: Performed By: #### L 500.4050, L501.4020, L100.0100 #### [facility] [address] [place], [address] Hematocrit (Bld) [Volume fraction] 38.0 % Normal 37-47 [facility] Comment on above: Performed By: #### L 500.4050, L501.4020, L100.0100 #### [facility] [address] [place], [address] Hemoglobin (Bld) [Mass/Vol] 12.5 g/dL Normal 12.0-15.0 [facility] Comment on above: Performed By: #### L 500.4050, L501.4020, L100.0100 #### [facility] [address] [place], [address] IG% 0.400 Normal 0.0-0.9 [facility] Comment on above: Result Comment: IG% - Immature Granulocytes (promyelocytes, myelocytes and metamyelocytes) > 1% indicates that a LEFT SHIFT is Present. Performed By: #### L 500.4050, L501.4020, L100.0100 #### [facility] [address] [place], [address] Lymphocytes/100 WBC (Bld) 10.3 % Low 19-41 [facility] Comment on above: Performed By: #### L 500.4050, L501.4020, L100.0100 #### [facility] [address] [place], [address] MCH (RBC) [Entitic mass] 26.8 pg Low 27.0-32.0 [facility] Comment on above: Performed By: #### L 500.4050, L501.4020, L100.0100 #### [facility] [address] [place], [address] MCHC (RBC) [Mass/Vol] 32.9 g/dL Normal 32-36 [facility] Comment on above: Performed By: #### L 500.4050, L501.4020, L100.0100 #### [facility] [address] [place], [address] MCV (RBC) [Entitic vol] 81.4 fL Normal 81-99 [facility] Comment on above: Performed By: #### L 500.4050, L501.4020, L100.0100 #### [facility] [address] [place], [address] Monocytes/100 WBC (Bld) 8.4 % Normal 0-10 [facility] Comment on above: Performed By: #### L 500.4050, L501.4020, L100.0100 #### [facility] [address] [place], [address] Neutrophils/100 WBC (Bld) 80.7 % High 47-70 [facility] Comment on above: Performed By: #### L 500.4050, L501.4020, L100.0100 #### [facility] [address] [place], [address] Nucleated RBC (Bld) [#/Vol] 0 10*3/uL Normal 0-5 [facility] Comment on above: Performed By: #### L 500.4050, L501.4020, L100.0100 #### [facility] [address] [place], [address] Platelet mean volume (Bld) [Entitic vol] 11.0 fL Normal 6.2-12.0 [facility] Comment on above: Performed By: #### L 500.4050, L501.4020, L100.0100 #### [facility] [address] [place], [address] Platelets (Bld) [#/Vol] 194 10*3/uL Normal 150-450 [facility] Comment on above: Performed By: #### L 500.4050, L501.4020, L100.0100 #### [facility] [address] [place], [address] RBC (Bld) [#/Vol] 4.67 10*6/uL Normal 4.2-5.4 [facility] Comment on above: Performed By: #### L 500.4050, L501.4020, L100.0100 #### [facility] [address] [place], [address] RDW SD 41.6 fl Normal 35.1-43.9 [facility] Comment on above: Performed By: #### L 500.4050, L501.4020, L100.0100 #### [facility] [address] [place], [address] WBC (Bld) [#/Vol] 5.5 10*3/uL Normal 4.4-11.0 [facility] Comment on above: Performed By: #### L 500.4050, L501.4020, L100.0100 #### [facility] [address] [place], [address] Chest PA and Lateralon 05-16 Chest PA and Lateral [facility] Imaging Services [address] [place] [address] Chest PA and Lateral MR#: [id number] Acct: [id number] Name: ALMAS WILSON Rep #: [id number] : 1955 F 67 From: Gasper Savage MD PCP: DAY NAVA Status: [facility] ER Study: Chest PA and Lateral Date of Exam: 05/16/23 Exam# [id number] Ordering Dr: Anatoliy Vegas MD -[id number] STUDY: X-RAY CHEST REASON FOR EXAM: [...] CC: Dr. Anatoliy Vegas MD; DAY NAVA Lithographic Press Operator Apprentice: Signed Normal [facility] Comprehensive Metabolic Prof ilon 05-16-2023 Albumin [Mass/Vol] 3.4 g/dL Normal 3.2-5.0 [facility] Comment on above: Order Comment: 'TROP ' Serial specimen #1, #2 or #3: 1 Performed By: #### L 500.4050, L501.4020, L100.0100 #### [facility] [address] [place], [address] Albumin/Globulin [Mass ratio] 0.8 {ratio} Low 0.9-2.4 [facility] Comment on above: Order Comment: 'TROP ' Serial specimen #1, #2 or #3: 1 Performed By: #### L 500.4050, L501.4020, L100.0100 #### [facility] [address] [place], [address] ALK P 117 U/L Normal 45-117 [facility] Comment on above: Order Comment: 'TROP ' Serial specimen #1, #2 or #3: 1 Performed By: #### L 500.4050, L501.4020, L100.0100 #### [facility] [address] [place], [address] ALT [Catalytic activity/Vol] 29 U/L Normal 13-56 [facility] Comment on above: Order Comment: 'TROP ' Serial specimen #1, #2 or #3: 1 Performed By: #### L 500.4050, L501.4020, L100.0100 #### [facility] [address] [place], [address] AST [Catalytic activity/Vol] 24 U/L Normal 15-37 [facility] Comment on above: Order Comment: 'TROP ' Serial specimen #1, #2 or #3: 1 Performed By: #### L 500.4050, L501.4020, L100.0100 #### [facility] [address] [place], [address] Bilirubin [Mass/Vol] 0.20 mg/dL Normal 0.20-1.00 [facility] Comment on above: Order Comment: 'TROP ' Serial specimen #1, #2 or #3: 1 Result Comment: For patients on eltrombopag therapy, use of Dimension [place] TBIL is not recommended. Performed By: #### L 500.4050, L501.4020, L100.0100 #### [facility] [address] [place], [address] BUN/CRE 12.4 RATIO Normal 10-20 [facility] Comment on above: Order Comment: 'TROP ' Serial specimen #1, #2 or #3: 1 Performed By: #### L 500.4050, L501.4020, L100.0100 #### [facility] [address] [place], [address] CA,Total 9.1 mg/dL Normal 8.5-10.1 [facility] Comment on above: Order Comment: 'TROP ' Serial specimen #1, #2 or #3: 1 Performed By: #### L 500.4050, L501.4020, L100.0100 #### [facility] [address] [place], [address] Chloride [Moles/Vol] 99 mmol/L Normal 98-107 [facility] Comment on above: Order Comment: 'TROP ' Serial specimen #1, #2 or #3: 1 Performed By: #### L 500.4050, L501.4020, L100.0100 #### [facility] [address] [place], [address] CO2 [Moles/Vol] 26.0 mmol/L Normal 21.0-32.0 [facility] Comment on above: Order Comment: 'TROP ' Serial specimen #1, #2 or #3: 1 Performed By: #### L 500.4050, L501.4020, L100.0100 #### [facility] [address] [place], [address] Creatinine [Mass/Vol] 1.13 mg/dL High 0.55-1.02 [facility] Comment on above: Order Comment: 'TROP ' Serial specimen #1, #2 or #3: 1 Result Comment: The validity of the calculated GFR GFRAA in patients over 70 years has not been determined. Clinical correlation is essential. Performed By: #### L 500.4050, L501.4020, L100.0100 #### [facility] [address] [place], [address] ECRCL 45.92 ml/min Normal [facility] Comment on above: Order Comment: 'TROP ' Serial specimen #1, #2 or #3: 1 Performed By: #### L 500.4050, L501.4020, L100.0100 #### [facility] [address] [place], [address] EST GFR - AA 61 mL/min Normal >60 [facility] Comment on above: Order Comment: 'TROP ' Serial specimen #1, #2 or #3: 1 Result Comment: Afri can [place]kin[place] GFR Calc Performed By: #### L 500.4050, L501.4020, L100.0100 #### [facility] [address] [place], [address] GAP 7 Normal 5-15 [facility] Comment on above: Order Comment: 'TROP ' Serial specimen #1, #2 or #3: 1 Performed By: #### L 500.4050, L501.4020, L100.0100 #### [facility] [address] [place], [address] GFR/1.73 sq M.predicted among non-blacks MDRD (S/P/Bld) [Vol rate/Area] 51 mL/min/{1.73_m2} Low >60 [facility] Comment on above: Order Comment: 'TROP ' Serial specimen #1, #2 or #3: 1 Result Comment: Non- GFR Calc Performed By: #### L 500.4050, L501.4020, L100.0100 #### [facility] [address] [place], [address] Globulin (S) [Mass/Vol] 4.2 g/dL Normal 2.2-4.2 [facility] Comment on above: Order Comment: 'TROP ' Serial specimen #1, #2 or #3: 1 Performed By: #### L 500.4050, L501.4020, L100.0100 #### [facility] [address] [place], [address] Glucose [Mass/Vol] 340 mg/dL High 74-106 [facility] Comment on above: Order Comment: 'TROP ' Serial specimen #1, #2 or #3: 1 Result Comment: Gluc ose result greater than or equal to 200 mg/dL suggests DIABETES MELLITUS per A.D.A. criteria. Performed By: #### L 500.4050, L501.4020, L100.0100 #### [facility] [address] [place], [address] Potassium [Moles/Vol] 4.1 mmol/L Normal 3.5-5.1 [facility] Comment on above: Order Comment: 'TROP ' Serial specimen #1, #2 or #3: 1 Performed By: #### L 500.4050, L501.4020, L100.0100 #### [facility] [address] [place], [address] Sodium [Moles/Vol] 132 mmol/L Low 136-145 [facility] Comment on above: Order Comment: 'TROP ' Serial specimen #1, #2 or #3: 1 Performed By: #### L 500.4050, L501.4020, L100.0100 #### [facility] [address] [place], [address] T PROT 7.6 g/dL Normal 6.4-8.2 [facility] Comment on above: Order Comment: 'TROP ' Serial specimen #1, #2 or #3: 1 Performed By: #### L 500.4050, L501.4020, L100.0100 #### [facility] [address] [place], [address] Urea nitrogen [Mass/Vol] 14 mg/dL Normal 7-18 [facility] Comment on above: Order Comment: 'TROP ' Serial specimen #1, #2 or #3: 1 Performed By: #### L 500.4050, L501.4020, L100.0100 #### [facility] [address] [place], [address] Emergency Department Summary on 05-16-2023 Emergency Department Summary [facility] Medical Records Department [address] [place] [address] Emergency Department Summary 05/16/23 MR#: [id number] Acct: [id number] Name: ALMAS WILSON Rep #: [id number] : 1955 67 From: Anatoliy Vegas MD PCP: DAY NAVA Status:REG ER Location: ED HPI History of Present Illness Chief Complaint: Fall Informant: patient and family (Son who is comfortable fully translating since patient speaks Stateless no Slovak) Associated Symptoms Associated Symptoms ED: cough Narrative [...] symptoms as far as pain or nausea/vomiting. [facility] Medical History Diabetes Hypertension Home Medications oseltamivir [...] Dexcom wirel (more content not included)... Normal [facility] L501.4020on 05-16-2023 TROPONIN-I HS 12 pg/mL Normal 3.0-54.0 [facility] Comment on above: Order Comment: 'TROP ' Serial specimen #1, #2 or #3: 1 Result Comment: Andreas hale Note: New Test Units and Gender Specific Reference Ranges. For more information see Policy Stat Procedure [place] High Sensitivity Troponin (TNIH) and attachments. Performed By: #### L 500.4050, L501.4020, L100.0100 ####[facility] [address] [place], [address] M100.678on 05-16-2023 M100.678 Normal Reference Range = Negative GeneXpert Instrument, PCR method COV + FLU + RSV PCR Copy of report sent to Infection Control Printer [id number] 05/16/23 1449 PAULETTE. RESULTS CALLED TO DTENNANT 05/16/23 1449 Suyapa Cardoso. REPORT READ BACK BY SAME. SARS-CoV-2 (COVID 19) Negative INFLUENZA A Positive A INFLUENZA A Positive A RSV PCR Positive A FLUA RSV Normal [facility] Comment on above: Performed By: #### M 100.678, L400.0001 #### [facility] [address] [place], [address] Urinalysis, Completeon 05-16 BACTERIA Normal None Seen [facility] Comment on above: Order Comment: COLLE CTOR TO SPECIFY Result Comment: Canc elled via OM: MD Ordered Performed By: #### M 100.678, L400.0001 #### [facility] [address] [place], [address] BILIRUBIN URINE Normal Negative [facility] Comment on above: Order Comment: COLLE CTOR TO SPECIFY Result Comment: Canc elled via OM: MD Ordered Performed By: #### M 100.678, L400.0001 #### [facility] [address] [place], [address] Clarity (U) Normal Clear [facility] Comment on above: Order Comment: COLLE CTOR TO SPECIFY Result Comment: Canc elled via OM: MD Ordered Performed By: #### M 100.678, L400.0001 #### [facility] [address] [place], [address] Color (U) Normal Yellow [facility] Comment on above: Order Comment: COLLE CTOR TO SPECIFY Result Comment: Canc elled via OM: MD Ordered Performed By: #### M 100.678, L400.0001 #### [facility] [address] [place], [address] EPI,SQUAMOUS Normal 5-10 [facility] Comment on above: Order Comment: COLLE CTOR TO SPECIFY Result Comment: Canc elled via OM: MD Ordered Performed By: #### M 100.678, L400.0001 #### [facility] [address] [place], [address] GLUCOSE, UR Normal Normal [facility] Comment on above: Order Comment: COLLE CTOR TO SPECIFY Result Comment: Canc elled via OM: MD Ordered Performed By: #### M 100.678, L400.0001 #### [facility] [address] [place], [address] KETONE UR Normal Negative [facility] Comment on above: Order Comment: COLLE CTOR TO SPECIFY Result Comment: Canc elled via OM: MD Ordered Performed By: #### M 100.678, L400.0001 #### [facility] [address] [place], [address] LEUK ESTERASE Normal Negative [facility] Comment on above: Order Comment: COLLE CTOR TO SPECIFY Result Comment: Canc elled via OM: MD Ordered Performed By: #### M 100.678, L400.0001 #### [facility] [address] [place], [address] Mucus Ql (Urine sed) Normal [facility] Comment on above: Order Comment: ANALI CTOR TO SPECIFY Result Comment: Canc elled via OM: MD Ordered Performed By: #### M 100.678, L400.0001 #### [facility] [address] [place], [address] Nitrite Ql (U) Normal Negative [facility] Comment on above: Order Comment: COLLE CTOR TO SPECIFY Result Comment: Canc elled via OM: MD Ordered Performed By: #### M 100.678, L400.0001 #### [facility] [address] [place], [address] OCCULT BLOOD-UR Normal Negative [facility] Comment on above: Order Comment: COLLE CTOR TO SPECIFY Result Comment: Canc elled via OM: MD Ordered Performed By: #### M 100.678, L400.0001 #### [facility] [address] [place], [address] pH UR Normal 5.0 - 8.0 [facility] Comment on above: Order Comment: COLLE CTOR TO SPECIFY Result Comment: Canc elled via OM: MD Ordered Performed By: #### M 100.678, L400.0001 #### [facility] [address] [place], [address] PROT DIPSTX Normal Negative [facility] Comment on above: Order Comment: COLLE CTOR TO SPECIFY Result Comment: Canc elled via OM: MD Ordered Performed By: #### M 100.678, L400.0001 #### [facility] [address] [place], [address] RBC Normal 0-5 [facility] Comment on above: Order Comment: COLLE CTOR TO SPECIFY Result Comment: Canc elled via OM: MD Ordered Performed By: #### M 100.678, L400.0001 #### [facility] [address] [place], [address] SP.GR. DIPSTX Normal 1.002-1.030 [facility] Comment on above: Order Comment: COLLE CTOR TO SPECIFY Result Comment: Canc elled via OM: MD Ordered Performed By: #### M 100.678, L400.0001 #### [facility] [address] [place], [address] UR Preservative Normal [facility] Comment on above: Order Comment: COLLE CTOR TO SPECIFY Result Comment: Canc elled via OM: MD Ordered Performed By: #### M 100.678, L400.0001 #### [facility] [address] [place], [address] UROBILI Normal Normal [facility] Comment on above: Order Comment: COLLE CTOR TO SPECIFY Result Comment: Canc elled via OM: MD Ordered Performed By: #### M 100.678, L400.0001 #### [facility] [address] [place], [address] WBC Normal 0-5 [facility] Comment on above: Order Comment: ANALI CTOR TO SPECIFY Result Comment: Canc elled via OM: MD Ordered Performed By: #### M 100.678, L400.0001 #### [facility] [address] [place], [address] Urine Cultureon 05-04-2023 URC Below infection level. GNR Poss Pseudomonas sp Admire Count <1000 Normal [facility] Comment on above: Performed By: #### M 100.2200 #### [facility] [address] [place], [address] Absolute lymphocyte countOrd ered By: Vianca Leal on 05-02-2023 Lymphocytes Auto (Unsp spec) [#/Vol] 2.27 10*3/uL 0.83-4.51 [facility] Basophil percentageOrdered B y: Vianca Leal on 05-02-2023 Basophil percentage 0-5 SEEN /hpf 0-5 [facility] Basophils/100 WBC (Bld) 0.7 % 0-1 [facility] Bilirubin [Mass/Vol] 0.40 mg/dL 0.20-1.00 [facility] Comment on above: For patients on eltr ombopag therapy, use of Dimension [place] TBIL is not recommended. Chloride [Moles/Vol] 103 mmol/L 98-107 [facility] Eosinophils/100 WBC (Bld) 0.7 % 0-5 [facility] Glucose [Mass/Vol] 386 mg/dL 74-106 [facility] Comment on above: Glucose result great er than or equal to 200 mg/dLsuggests DIABETES MELLITUS per A.D.A. criteria. Neutrophils (Bld) [#/Vol] 4.6 10*3/uL 2.0-7.7 [facility] Neutrophils/100 WBC (Bld) 61.5 % 47-70 [facility] Potassium [Moles/Vol] 4.6 mmol/L 3.5-5.1 [facility] Protein [Mass/Vol] 7.5 g/dL 6.4-8.2 [facility] Sodium [Moles/Vol] 137 mmol/L 136-145 [facility] WBC (Bld) [#/Vol] 7.4 10*3/uL 4.4-11.0 [facility] Bedside Glucoseon 05-02-2023 FINGERSTICK GLU 293 mg/dL High 74-106 [facility] Comment on above: Result Comment: ASHLEY GEMENT OF PATIENT CARE PER NURSING PROTOCOL Performed By: #### L 501.080 ####[facility] [address] [place], [address] FINGERSTICK GLU 389 mg/dL High [address] [place] [address] Comment on above: Result Comment: ASHLEY GEMENT OF PATIENT CARE PER NURSING PROTOCOL Performed By: #### L 501.080 ####[facility] [address] [place], [address] FINGERSTICK GLU 356 mg/dL High [address] [place] [address] Comment on above: Result Comment: ASHLEY GEMENT OF PATIENT CARE PER NURSING PROTOCOL Performed By: #### L 501.080 #### [facility] [address] [place], [address] Bilirubin Test strip Ql (U)O rdered By: Vianca Leal on 05-02-2023 Bilirubin Ql (U) Negative Negative [facility] Blood erythrocytes count (nu mber/volume)Ordered By: Vianca Leal on 05-02-2023 RBC (Bld) [#/Vol] 4.88 10*6/uL 4.2-5.4 [facility] Blood hemoglobin measurement (mass/volume)Ordered By: Vianca Leal on 05-02-2023 Hemoglobin (Bld) [Mass/Vol] 12.9 g/dL 12.0-15.0 [facility] Blood lymphocytes/100 leukoc ytesOrdered By: Vianca Leal on 05-02-2023 Lymphocytes/100 WBC (Bld) 30.6 % 19-41 [facility] Blood monocytes/100 leukocyt esOrdered By: Vianca Leal on 05-02-2023 Monocytes/100 WBC (Bld) 6.2 % 0-10 [facility] Blood platelet mean volumeOr dered By: Vianca Leal on 05-02-2023 Platelet mean volume (Bld) [Entitic vol] 11.1 fL 6.2-12.0 [facility] CBC W/Diff, Automatedon Absolute Lymph 2.27 X10 3/uL Normal 0.83-4.51 [facility] Comment on above: Performed By: #### L 100.0100, L500.4050 ####[facility] [address] [place], [address] Absolute Neut 4.6 X10 3/uL Normal 2.0-7.7 [facility] Comment on above: Performed By: #### L 100.0100, L500.4050 ####[facility] [address] [place], [address] Basophils/100 WBC (Bld) 0.7 % Normal 0-1 [facility] Comment on above: Performed By: #### L 100.0100, L500.4050 ####[facility] [address] [place], [address] Eosinophils/100 WBC (Bld) 0.7 % Normal 0-5 [facility] Comment on above: Performed By: #### L 100.0100, L500.4050 ####[facility] [address] [place], [address] Erythrocyte distribution width (RBC) [Ratio] 14.4 % Normal 11.6-14.6 [facility] Comment on above: Performed By: #### L 100.0100, L500.4050 ####[facility] [address] [place], [address] Hematocrit (Bld) [Volume fraction] 39.5 % Normal 37-47 [facility] Comment on above: Performed By: #### L 100.0100, L500.4050 ####[facility] [address] [place], [address] Hemoglobin (Bld) [Mass/Vol] 12.9 g/dL Normal 12.0-15.0 [facility] Comment on above: Performed By: #### L 100.0100, L500.4050 ####[facility] [address] [place], [address] IG% 0.300 Normal 0.0-0.9 [facility] Comment on above: Result Comment: IG% - Immature Granulocytes (promyelocytes, myelocytes and metamyelocytes) > 1% indicates that a LEFT SHIFT is Present. Performed By: #### L 100.0100, L500.4050 ####[facility] [address] [place], [address] Lymphocytes/100 WBC (Bld) 30.6 % Normal 19-41 [facility] Comment on above: Performed By: #### L 100.0100, L500.4050 ####[facility] [address] [place], [address] MCH (RBC) [Entitic mass] 26.4 pg Low 27.0-32.0 [facility] Comment on above: Performed By: #### L 100.0100, L500.4050 ####[facility] [address] [place], [address] MCHC (RBC) [Mass/Vol] 32.7 g/dL Normal 32-36 [facility] Comment on above: Performed By: #### L 100.0100, L500.4050 ####[facility] [address] [place], [address] MCV (RBC) [Entitic vol] 80.9 fL Low 81-99 [facility] Comment on above: Performed By: #### L 100.0100, L500.4050 ####[facility] [address] [place], [address] Monocytes/100 WBC (Bld) 6.2 % Normal 0-10 [facility] Comment on above: Performed By: #### L 100.0100, L500.4050 ####[facility] [address] [place], [address] Neutrophils/100 WBC (Bld) 61.5 % Normal 47-70 [facility] Comment on above: Performed By: #### L 100.0100, L500.4050 ####[facility] [address] [place], [address] Nucleated RBC (Bld) [#/Vol] 0 10*3/uL Normal 0-5 [facility] Comment on above: Performed By: #### L 100.0100, L500.4050 ####[facility] [address] [place], [address] Platelet mean volume (Bld) [Entitic vol] 11.1 fL Normal 6.2-12.0 [facility] Comment on above: Performed By: #### L 100.0100, L500.4050 ####[facility] [address] [place], [address] Platelets (Bld) [#/Vol] 293 10*3/uL Normal 150-450 [facility] Comment on above: Performed By: #### L 100.0100, L500.4050 ####[facility] [address] [place], [address] RBC (Bld) [#/Vol] 4.88 10*6/uL Normal 4.2-5.4 [facility] Comment on above: Performed By: #### L 100.0100, L500.4050 ####[facility] [address] [place], [address] RDW SD 42.3 fl Normal 35.1-43.9 [facility] Comment on above: Performed By: #### L 100.0100, L500.4050 ####[facility] [address] [place], [address] WBC (Bld) [#/Vol] 7.4 10*3/uL Normal 4.4-11.0 [facility] Comment on above: Performed By: #### L 100.0100, L500.4050 ####[facility] [address] [place], [address] Comprehensive Metabolic Prof [facility] 05-02-2023 Albumin [Mass/Vol] 3.6 g/dL Normal 3.2-5.0 [facility] Comment on above: Performed By: #### L 100.0100, L500.4050 ####[facility] [address] [place], [address] Albumin/Globulin [Mass ratio] 0.9 {ratio} Normal 0.9-2.4 [facility] Comment on above: Performed By: #### L 100.0100, L500.4050 ####[facility] [address] [place], [address] ALK P 153 U/L High 45-117 [facility] Comment on above: Performed By: #### L 100.0100, L500.4050 ####[facility] [address] [place], [address] ALT [Catalytic activity/Vol] 24 U/L Normal 13-56 [facility] Comment on above: Performed By: #### L 100.0100, L500.4050 ####[facility] [address] [place], [address] AST [Catalytic activity/Vol] 8 U/L Low 15-37 [facility] Comment on above: Performed By: #### L 100.0100, L500.4050 ####[facility] [address] [place], [address] Bilirubin [Mass/Vol] 0.40 mg/dL Normal 0.20-1.00 [facility] Comment on above: Result Comment: For patients on eltrombopag therapy, use of Dimension [place] TBIL is not recommended. Performed By: #### L 100.0100, L500.4050 ####[facility] [address] [place], [address] BUN/CRE 18.6 RATIO Normal 10-20 [facility] Comment on above: Performed By: #### L 100.0100, L500.4050 ####[facility] [address] [place], [address] CA,Total 9.5 mg/dL Normal 8.5-10.1 [facility] Comment on above: Performed By: #### L 100.0100, L500.4050 ####[facility] [address] [place], [address] Chloride [Moles/Vol] 103 mmol/L Normal 98-107 [facility] Comment on above: Performed By: #### L 100.0100, L500.4050 ####[facility] [address] [place], [address] CO2 [Moles/Vol] 25.0 mmol/L Normal 21.0-32.0 [facility] Comment on above: Performed By: #### L 100.0100, L500.4050 ####[facility] [address] [place], [address] Creatinine [Mass/Vol] 1.13 mg/dL High 0.55-1.02 [facility] Comment on above: Result Comment: The validity of the calculated GFR GFRAA in patients over 70 years has not been determined. Clinical correlation is essential. Performed By: #### L 100.0100, L500.4050 ####[facility] [address] [place], [address] ECRCL 33.75 ml/min Normal [facility] Comment on above: Performed By: #### L 100.0100, L500.4050 ####[facility] [address] [place], [address] EST GFR - AA 61 mL/min Normal >60 [facility] Comment on above: Result Comment: Afri can [place] GFR Calc Performed By: #### L 100.0100, L500.4050 ####[facility] [address] [place], [address] GAP 9 Normal 5-15 [facility] Comment on above: Performed By: #### L 100.0100, L500.4050 ####[facility] [address] [place], [address] GFR/1.73 sq M.predicted among non-blacks MDRD (S/P/Bld) [Vol rate/Area] 51 mL/min/{1.73_m2} Low >60 [facility] Comment on above: Result Comment: Non- GFR Calc Performed By: #### L 100.0100, L500.4050 ####[facility] [address] [place], [address] Globulin (S) [Mass/Vol] 3.9 g/dL Normal 2.2-4.2 [facility] Comment on above: Performed By: #### L 100.0100, L500.4050 ####[facility] [address] [place], [address] Glucose [Mass/Vol] 386 mg/dL High 74-106 [facility] Comment on above: Result Comment: Gluc ose result greater than or equal to 200 mg/dL suggests DIABETES MELLITUS per A.D.A. criteria. Performed By: #### L 100.0100, L500.4050 ####[facility] [address] [place], [address] Potassium [Moles/Vol] 4.6 mmol/L Normal 3.5-5.1 [facility] Comment on above: Performed By: #### L 100.0100, L500.4050 ####[facility] [address] [place], [address] Sodium [Moles/Vol] 137 mmol/L Normal 136-145 [facility] Comment on above: Performed By: #### L 100.0100, L500.4050 ####[facility] [address] [place], [address] T PROT 7.5 g/dL Normal 6.4-8.2 [facility] Comment on above: Performed By: #### L 100.0100, L500.4050 ####[facility] [address] [place], [address] Urea nitrogen [Mass/Vol] 21 mg/dL High 7-18 [facility] Comment on above: Performed By: #### L 100.0100, L500.4050 ####[facility] [address] [place], [address] Determination of erythrocyte mean corpuscular volume (MCV)Ordered By: Vianca Leal on 05-02-2023 MCV (RBC) [Entitic vol] 80.9 fL 81-99 [facility] Emergency Department Summary on 05-02-2023 Emergency Department Summary [facility] Medical Records Department [address] [place] [address] Emergency Department Summary 05/02/23 MR#: [id number] Acct: [id number] Name: ALMAS WILSON Rep #: [id number] : 1955 67 From: Vianca Leal DO PCP: DAY NAVA Status:DEP ER Location: ED HPI History of Present Illness Chief Complaint: Hyperglycemia Informant: patient Narrative Narrative: Patient is a 67-year-old female, Stateless speaking with her son at the bedside to translate, presenting for concerns of high blood sugars. Patient is diabetic on Trulicity. She receives her care through access point in [place]. They have been uptitrating her Trulicity however [...] deficits noted Neuro Narrative: Coordination with normal whrmat-pw-bkjw and ambulation Sensorium / Orientation: alert Motor [...] have glucose (more content not included)... Normal [facility] Glucose Glucometer (BldC) [M ass/Vol]Ordered By: Vianca Leal on 05-02-2023 Glucose [Mass/Vol] 293 mg/dL 74-106 [facility] Comment on above: MANAGEMENT OF PATIEN T CARE PER NURSING PROTOCOL Hematocrit Auto (Bld) [Volum e fraction]Ordered By: Vianca Leal on 05-02-2023 Hematocrit (Bld) [Volume fraction] 39.5 % 37-47 [facility] Ketones Test strip Ql (U)Ord ered By: Vianca Leal on 05-02-2023 Ketones Ql (U) Negative Negative [facility] Laboratory - Chemistry and C hemistry - challengeOrdered By: Vianca Leal on 05-02-2023 ALP [Catalytic activity/Vol] 153 U/L 45-117 [facility] ALT [Catalytic activity/Vol] 24 U/L 13-56 [facility] CO2 [Moles/Vol] 25.0 mmol/L 21.0-32.0 [facility] Globulin (S) [Mass/Vol] 3.9 g/dL 2.2-4.2 [facility] Urea nitrogen/Creatinine [Mass ratio] 18.6 mg/mg 10-20 [facility] Laboratory - Hematology and Cell countsOrdered By: Vianca Leal on 05-02-2023 Erythrocyte distribution width (RBC) [Entitic vol] 42.3 fL 35.1-43.9 [facility] Erythrocyte distribution width (RBC) [Ratio] 14.4 % 11.6-14.6 [facility] Immature granulocytes/100 WBC (Bld) 0.300 % 0.0-0.9 [facility] Comment on above: IG% - Immature Granu locytes (promyelocytes, myelocytes and metamyelocytes) > 1% indicates that a LEFT SHIFT is Present. MCH (RBC) [Entitic mass] 26.4 pg 27.0-32.0 [facility] Nucleated RBC/100 WBC (Bld) [Ratio] 0 % 0-5 [facility] MCHC Auto (RBC) [Mass/Vol]Or dered By: Vianca Leal on 05-02-2023 MCHC (RBC) [Mass/Vol] 32.7 g/dL 32-36 [facility] Mucus LM Ql (Urine sed)Order ed By: Vianca Leal on 05-02-2023 Mucus Ql (Urine sed) 0 SEEN /hpf [facility] Nitrite Test strip Ql (U)Ord ered By: Vianca Leal on 05-02-2023 Nitrite Ql (U) Negative Negative [facility] No Panel InformationOrdered By: Vianca Leal on 05-02-2023 Estimated Creatinine Clearance Calc 33.75 ml/min [facility] Estimated GFR (MDRD) Amer 61 mL/min >60 [facility] Comment on above: GFR Calc Estimated GFR (MDRD) Non-Af Amer 51 mL/min >60 [facility] Comment on above: Non- GFR Calc Platelets bldOrdered By: Rosetta Leal on 05-02-2023 Platelets (Bld) [#/Vol] 293 10*3/uL 150-450 [facility] Protein Test strip Ql (U)Ord ered By: Vianca Leal on 05-02-2023 Protein Ql (U) 30 mg/dl Negative [facility] Serum or plasma albumin phong urement (mass/volume)Ordered By: Vianca Leal on 05-02-2023 Albumin [Mass/Vol] 3.6 g/dL 3.2-5.0 [facility] Serum or plasma albumin/glob ulin mass ratioOrdered By: Vianca Leal on 05-02-2023 Albumin/Globulin [Mass ratio] 0.9 {ratio} 0.9-2.4 [facility] Serum or plasma calcium phong urement (mass/volume)Ordered By: Vianca Leal on 05-02-2023 Calcium [Mass/Vol] 9.5 mg/dL 8.5-10.1 [facility] Serum or plasma creatinine m easurement (mass/volume)Ordered By: Vianca Leal on 05-02-2023 Creatinine [Mass/Vol] 1.13 mg/dL 0.55-1.02 [facility] Comment on above: The validity of the calculated GFR & GFRAA in patients over 70 years has not been determined. Clinical correlation is essential. Serum or plasma urea nitroge n measurement (mass/volume)Ordered By: Vianca Leal on 05-02-2023 Urea nitrogen [Mass/Vol] 21 mg/dL 7-18 [facility] Squamous epithelial cells de tection in urine sediment by light microscopyOrdered By: Vianca Leal on 05-02-2023 Epithelial cells.squamous LM Ql (Urine sed) 0 SEEN /hpf 5-10 [facility] Thin prep Papanicolaou smear with manual screeningOrdered By: Vianca Leal on 05-02-2023 Thin prep Papanicolaou smear with manual screening 8 U/L 15-37 [facility] Thin prep Papanicolaou smear with manual screening 9 5-15 [facility] Urinalysis, Completeon 05-02 WBC 0-5 SEEN Normal 0-5 [facility] Comment on above: Order Comment: CLEAN CATCH Performed By: #### L 400.0001 ####[facility] [address] [place], [address] BACTERIA 0 SEEN Normal None Seen [facility] Comment on above: Order Comment: CLEAN CATCH Performed By: #### L 400.0001 ####[facility] [address] [place], [address] EPI,SQUAMOUS 0 SEEN Normal 5-10 [facility] Comment on above: Order Comment: CLEAN CATCH Performed By: #### L 400.0001 ####[facility] [address] [place], [address] Mucus Ql (Urine sed) 0 SEEN Normal [facility] Comment on above: Order Comment: CLEAN CATCH Performed By: #### L 400.0001 ####[facility] [address] [place], [address] RBC 0 SEEN Normal 0-5 [facility] Comment on above: Order Comment: CLEAN CATCH Performed By: #### L 400.0001 ####[facility] [address] [place], [address] Urine blood detectionOrdered By: Vianca Leal on 05-02-2023 RBC Ql (U) 10 /ul Negative [facility] RBC Ql (U) 0 SEEN /hpf 0-5 [facility] Urine clarityOrdered By: Rosetta Leal on 05-02-2023 Clarity (U) Clear Clear [facility] Urine color determinationOrd ered By: Vianca Leal on 05-02-2023 Color (U) Yellow Yellow [facility] Urine glucose detectionOrder ed By: Vianca Leal on 05-02-2023 Glucose Ql (U) 1000 mg/dl Normal [facility] Urine leukocyte esterase det ection by dipstickOrdered By: Vianca Leal on 05-02-2023 Leukocyte esterase Test strip Ql (U) 25 /ul Negative [facility] Urine pHOrdered By: Vianca gamboa on 05-02-2023 pH (U) 6.0 [pH] 5.0 - 8.0 [facility] Urine sediment bacteria coun t by microscopy (number/high power field)Ordered By: Vianca Leal on 05-02-2023 Bacteria LM.HPF (Urine sed) [#/Area] 0 /[HPF] None Seen [facility] Urine specific gravity measu rementOrdered By: Vianca Leal on 05-02-2023 Specific gravity (U) [Rel density] 1.015 1.002-1.030 [facility] Urobilinogen Auto test strip Ql (U)Ordered By: Vianca Leal on 05-02-2023 Urobilinogen Ql (U) Normal mg/dl Normal [facility] MG Breast Screeningon 2022 IMPRESSION: BENIGN FINDING There is no mammographic evidence of malignancy. A 1 year screening mammogram is recommended. [place] wang/vineet:02/12/20 23 14:29:44 Call Person(s): Ang Herbert)(M), [facility] [place] letter sent: Normal over 40 Mammogram BI-RADS: [...] Health, Family Medicine, and Medical/Surgical Oncology, the [facility] has carefully reviewed the data and reached [...] their providers when to stop screening mammograms. Lithographic [employer] Operator Apprentice: Vineet Transcribe Date/Time: Feb 11 2023 11:10A Dictated by : LONDON GARCIA MD This examination was interpreted and the report reviewed and electronically signed by: LONDON GARCIA MD on Feb 11 2023 2:29PM EST [facility] [employer] * * *Final Report* * * DATE OF EXAM: Feb 11 2023 11:23AM AT 0581 - [facility] SCREENING / PROCEDURE REASON: SCREENING * * * * Physician Interpretation * * * * #[id number] - [facility] SCREENING BILATERAL DIGITAL SCREENING MAMMOGRAM WITH CAD: 02/11/2023 HISTORY: Screening / Screening Mammogram-Patient reports NO symptoms. RESULT: TECHNIQUE: The study was acquired using full field digital technology and interpreted from soft copy. Current study was also evaluated with a Computer Aided Detection (CAD). Comparison is made to exam dated: 03/13/2021 mammogram - [facility] [place]. There are scattered areas of fibroglandular density. There are benign vascular calcifications in both breasts. No significant masses, calcifications, or other findings are seen in either breast. There has been no significant interval change. [employer] Provider, [facility] [place] - 02/11/2023 * * *Final Report* * * DATE OF EXAM: Feb 11 2023 11:23AM AT 0581 - [facility] SCREENING / PROCEDURE REASON: SCREENING * * * * Physician Interpretation * * * * #[id number] - [facility] SCREENING BILATERAL DIGITAL SCREENING MAMMOGRAM WITH CAD: 02/11/2023 HISTORY: Screening / Screening Mammogram-Patient reports NO symptoms. RESULT: TECHNIQUE: The study was acquired using full field digital technology and interpreted from soft copy. Current study was also evaluated with a Computer Aided Detection (CAD). Comparison is made to exam dated: 03/13/2021 mammogram - [facility] [place]. There are scattered areas of fibroglandular density. There are benign vascular calcifications in both breasts. No significant masses, calcifications, or other findings are seen in either breast. There has been no significant interval change. IMPRESSION IMPRESSION: BENIGN FINDING There is no mammographic evidence of malignancy. A 1 year screening mammogram is recommended. [place] wang/vineet:02/12/20 14:29:44 Call Person(s): Mateo Herbert(Nini)(M), [place] [facility] [place] letter sent: Normal over 40 Mammogram BI-RADS: [...] Health, Family Medicine, and Medical/Surgical Oncology, the [facility] has carefully reviewed the data and reached [...] their providers when to stop screening mammograms. Lithographic [employer] Operator Apprentice: Vineet Transcribe Date/Time: Feb 11 2023 11:10A Dictated by : LONDON GARCIA MD This examination was interpreted and the report reviewed and electronically signed by: LONDON GARCIA MD on Feb 11 2023 2:29PM [facility] Radiology Study observation (narrative) [facility] MG Breast ScreeningOrdered B y: [facility] Provider on 02-11-2023 [facility] Tobacco Screening.on 023 Adult depression screening assessment No [facility] Work Phone: Fall risk assessment b) One or more falls in the last year [facility] Work Phone: Tobacco use status [facility] b) No [facility] Work Phone: LELE SCREENINGon 03-13-2021 [facility] Vital Signs Date Time Vital Sign Value Performing Clinician Facility 11-09-2024 16:02-0400 Body temperature 98.6 [degF] [facility] [employer] Work Phone: [facility] 11-09-2024 16:02-0400 Diastolic blood pressure 78 mm[Hg] [facility] [employer] Work Phone: [facility] 11-09-2024 16:02-0400 Heart rate 89 /min Eunice Gadsden [employer] Work Phone: [facility] 11-09-2024 16:02-0400 Respiratory rate 18 /min Eunice Cathy [employer] Work Phone: [facility] 11-09-2024 16:02-0400 SaO2% (BldA) [Mass fraction] 98 % [facility] [employer] Work Phone: [facility] 11-09-2024 16:02-0400 Systolic blood pressure 130 mm[Hg] [facility] [employer] Work Phone: [facility] 11-09-2024 14:25-0400 Body height 152.4 cm [facility] [employer] Work Phone: [facility] 11-09-2024 14:25-0400 Body mass index (BMI) [Ratio] 37.3 kg/m2 [facility] [employer] Work Phone: [facility] 11-09-2024 14:25-0400 Body weight 86.63 kg Eunice Morgan [employer] Work Phone: [facility] 05-02-2023 18:00-0500 Diastolic blood pressure 69 mm[Hg] [facility] 05-02-2023 18:00-0500 Heart rate 84 /min [facility] 05-02-2023 18:00-0500 Respiratory rate 16 /min [facility] 05-02-2023 18:00-0500 SaO2% (BldA) [Mass fraction] 97 % [facility] 05-02-2023 18:00-0500 Systolic blood pressure 144 mm[Hg] [facility] 05-02-2023 13:49-0500 Body height 152.4 cm [facility] 05-02-2023 13:49-0500 Body mass index (BMI) [Ratio] 36.8 kg/m2 [facility] 05-02-2023 13:49-0500 Body temperature 98.3 [degF] [facility] 05-02-2023 13:49-0500 Body weight 85.5 kg [facility] 06-08-2022 15:34-0500 Body height 154.94 cm Day Nava Work Phone[facility] Work Phone: 06-08-2022 15:34-0500 Body mass index (BMI) [Ratio] 34.01 kg/m2 Day Nava Work Phone: [facility] Work Phone: 06-08-2022 15:34-0500 Body surface area Derived from formula 1.81 m2 Day Nava Work Phone: [facility] Work Phone: 06-08-2022 15:34-0500 Body temperature 98 [degF] Day Nava Work Phone: -[facility] Work Phone: 06-08-2022 15:34-0500 Body weight 81.65 kg Day Nava Work Phone: [facility] Work Phone: 06-08-2022 15:34-0500 Diastolic blood pressure 66 mm[Hg] Day Nava Work Phone: [facility] Work Phone: 06-08-2022 15:34-0500 Heart rate 75 /min Day Nava Work Phone: [facility] Work Phone: 06-08-2022 15:34-0500 Respiratory rate 16 /min Day Nava Work Phone: [facility] Work Phone: 06-08-2022 15:34-0500 SaO2% (BldA) [Mass fraction] 97 % Day Nava Work Phone: [facility] Work Phone: 06-08-2022 15:34-0500 Systolic blood pressure 132 mm[Hg] Day Nava Work Phone: [facility] Work Phone: 06-08-2022 15:34-0500 5 1 Day Nava Work Phone: [facility] Work Phone: Comment on above: [employer] Encounters Encounter Date Encounter Type Care Provider Facility Start: 11-09-2024 End: 11-09-2024 Emergency department patient visit Eunice Morgan [employer] TOWER [employer]EE[employer]C Work Phone: -Emergency Department Work Phone: Start: 05-21-2024 End: 06-01-2024 Telephone encounter Danielle Jackson PA-C Work Phone: [facility] DEPARTMENT Comment on above: Appointment Start: 05-16-2023 End: 05-16-2023 Emergency department patient visit STACEY ZHENG Facility:[facility] Start: 05-02-2023 End: 05-02-2023 Emergency department patient visit [facility] Facility:[facility] Start: 05-02-2023 End: 05-02-2023 Emergency department patient visit [facility]-Emergency Department Work Phone: Start: 02-11-2023 Documentation procedure Mammog gurjit Coordinator [facility] Start: 02-11-2023 Letter encounter Mammography Coordinator [facility] Start: 02-11-2023 End: 02-11-2023 Subsequent hospital visit by physician Screen Mammo [place] [facility] MAMMO [facility]FLE[facility] Comment on above: Screening Start: 06-08-2022 Office outpatient ne w 30 minutes Day Nava Work Phone: [facility] Work Phone: Start: 03-13-2021 Documentation procedure Mammog gurjit Coordinator [facility] Start: 03-13-2021 Letter encounter Mammography Coordinator [facility] Start: 03-13-2021 End: 03-13-2021 Subsequent hospital visit by physician Screen Mammo [place] RADIO MAMMO REFLECTIONS [facility] Comment on above: [...] RSV Vaccine (1 - 1-dose 75+ series) [facility] Start: 11-09-2024 [facility] Start: 09-14-2024 End: 09-14-2024 Patient encounter procedure 09/14/2024 1:00 PM EDT Office Visit [facility] [address] [place] [address] Eunice Webb PA-C [address] [place] [address] rf/malignant neoplasm of colon [facility] Comment on above: rf/malignant neoplas m of colon Start: 04-28-2024 Advance Directive Discussion Advance Directive Discussion [facility] Start: 02-12-2024 Screening for malign ant neoplasm of breast Mammogram Screening [facility] Start: 02-08-2024 Screening for malign ant neoplasm of colon [facility] Start: 12-28-2023 Covid-19 Vaccine () Covid-19 Vaccine () [facility] Start: 12-28-2023 Covid-19 Vaccine () Covid-19 Vaccine () [facility] Start: 12-28-2023 Influenza vaccination Influenza Vacc ine (#1) [facility] Start: 05-02-2023 [facility] Start: 05-02-2023 [facility] Start: 05-02-2023 Bacteria identified in Urine by Culture Urine Culture [facility] Start: 04-28-2023 Advance Directive Discussion Advance Directive Discussion [facility] Start: 12-27-2022 Covid-19 Vaccine ( season) Covid-19 Vaccine () [facility] Start: 12-27-2022 Influenza vaccination Influenza Vacc ine (#1) [facility] Start: 04-28-2022 Advance Directive Discussion Advance Directive Discussion [facility] Start: 04-28-2022 Depression Assessment Depression Ass essment [facility] Start: 03-13-2022 Mammography [facility] Start: 03-20-2021 COVID-19 VACCINE (3 - Booster for Moderna series) COVID-19 VACCINE (3 - Booster for Moderna series) [facility] Start: 12-27-2020 Influenza vaccination INFLUENZA (#1) [facility] Start: 10-06-2020 Urine microalbumin profile DTaP,Tdap,Td Vaccine (1 - Tdap) [facility] Start: 2018 ADVANCE DIRECTIVE DISCUSSION ADVANCE DIRECTIVE DISCUSSION [facility] Start: 2018 BONE DENSITY BONE DENSITY [facility] Start: 2018 Bone Density Screening Bone Density Screening [facility] Start: 2018 Pneumococcal Vaccine : 65+ (1 - PCV) Pneumococcal Vaccine: 65+ (1 - PCV) [facility] Start: 2018 Pneumococcal Vaccine : 65+ (1 of 1 - PCV) Pneumococcal Vaccine: 65+ (1 of 1 - PCV) [facility] Start: 2018 PNEUMOVAX AGE 65 AND OVER WITH 5YR LOOKBACK (#1) PNEUMOVAX AGE 65 AND OVER WITH 5YR LOOKBACK (#1) [facility] Start: 2018 Screening for osteoporosis Bone Density Screening [facility] Start: 2013 RSV Vaccine (1 - 1-d ose 60+ series) RSV Vaccine (1 - 1-dose 60+ series) [facility] Start: 10-20-2003 Pneumococcal Vaccine : 50+ (1 of 1 - PCV) Pneumococcal Vaccine: 50+ (1 of 1 - PCV) [facility] Start: 10-20-2003 SHINGRIX VACCINE (1 of 2) SHINGRIX VACCINE (1 of 2) [facility] Start: 1998 COLOGUARD (FIT-DNA) COLOGUARD (FIT-D NA) [facility] Start: 1998 Colonoscopy COLONOSCOPY [facility] Start: 1998 COLORECTAL CANCER SCREENING COLORECTAL CANCER SCREENING [facility] Start: [address] COLONOGRAPHY [facility] Start: 1998 DIABETES SCREEN DIABETES SCREEN [facility] Start: 1998 Diabetes Screening Diabetes Screenin g [facility] Start: 1998 FECAL OCCULT BLOOD FECAL OCCULT BLOO D [facility] Start: 1998 Lipid 1996 panel - S brittany or Plasma Lipid Screening [facility] Start: 1998 Lipid panel Lipid Screening [facility] Start: 1998 LIPID SCREEN LIPID SCREEN [facility] Start: 1998 Screening for malign ant neoplasm of colon [facility] Start: 1998 SIGMOIDOSCOPY SIGMOIDOSCOPY [facility] Start: 1972 Urine microalbumin profile DTAP,TDAP,TD (1 - Tdap) [facility] Start: 10-20-1971 Anxiety Screening Anxiety Screening [facility] Start: 10-20-1971 Depression Screening Depression Scre sumit [facility] Start: 10-20-1971 HEPATITIS C SCREENING HEPATITIS C [facility] Start: 10-20-1971 Hepatitis C screening Hepatitis C [facility] Start: 1965 Adult depression screening assessment DEPRESSION SCREENING [facility] Patient Education [facility] Work Phone: Patient referral [facility] Work Phone: Payers Date Payer Category Payer Self-pay 2023 Unknown [id number] 2022 Medicare [facility] MEDICARE [facility] AARP [employer] PPO [id number] 2022-Present [phone] [address] [address] [place] [address] PPO [id number] 2020 Medicare MEDICARE [employer] GE GENERIC MEDICARE ADVANTAGE GENERIC [id number] 2020-Present [phone] [address] [address] [place] [address] Indemnity [id number] Unknown [facility] Unknown AARP MCR ADV [id number] Unknown [id number] Unknown [id number] Social History Date Type Detail Facility Start: 05-02-2023 Tobacco smoking status MNIS Tobacco smoking consumption unknown [facility] Start: 1955 Sex Assigned At Not on file [facility] Exposure to SARS-CoV-2 (event) Not sure [facility] Gender identity Not on file [facility] Start: 1955 Sex Assigned At Female [facility] Start: 07-15-2025 Tobacco smoking status NHIS Never smoked tobacco (finding) [facility] Mental Status Date Assessment Result Facility 05-02-2023 Cognitive function Level Of Cons ciousness Awake;Alert;Appropriate [facility] Work Phone: Clinical Notes 03-13-2021 to 11-09-2024 Note Date & Type Note Facility 11-09-2024 Discharge summary [facility] 11-09-2024 Discharge summary Note Date/Time November 09, 2024 4:09pm [facility] Health System Medical Records Department [address] [place] [address] Emergency Department Summary 11/09/24 MR#: [id number] Acct: [id number] Name: ALMAS WILSON Rep #:[id number] : 1955 69 From: Mark Her MD [...] Care Provider: Eunice Morgan Referrals: Eunice Morgan, [employer] [Primary Care Provider] - As Needed Activity [...] quickly. If seen just return Print Language: Stateless Disposition Disposition: Home, Self Care What to do if you have Problems For any increased pain, shortness of breath, bleeding, nausea or vomiting, chestpain, or any unexpected problems, contact your Primary Care Provider. Call [facility] ([phone]) or report to the closest Emergency Room. Call 911 if necessary. 11/09/24 1602 <Electronically signed by Mark Her MD> Cosigner Signature (if applicable): CC: Eunice Morgan ~ Signed [facility] Work Phone: [phone]) 243-595901-24-2025 Telephone encounter Note* Telephone Encounter - Silvia Balderas - 05/21/2024 3:49 PM EST Left voicemail for patient to call back to schedule a appointment based on referral for screening for malignant neoplasm of colon Silvia Balderas [facility]01-24-2025 Miscellaneous Notes* Telephone Encounter - Silvia Balderas - 05/21/2024 3:49 PM EST Left voicemail for patient to call back to schedule a appointment based on referral for screening for malignant neoplasm of colon Silvia Balderas [facility] Miscellaneous Notes* Letter - Coordinator, Mammography - 02/11/2023 2:29 PM EDT [address] [place] [address] February 12, 2023 PID: [id number] Almas Wilson [address] [place] [id number] Dear Ms. Wilson, We are pleased to [...] report will be kept on file at [facility] as part of your permanent medical record and are available for your continuing care. Thank you for allowing us to help in meeting your health care needs. Sincerely, Dr. Garcia Interpreting Radiologist [facility] [place] (Normal over 40) documented [facility] History of Present illness Narrative* Sachi Khan [...] 11, 2023 11:29 AM documented in [facility]Cl[facility]02-[facility]23 History of Present illness Narrative* Patient 66-year-old female presenting with her son for sore throat ear pain. Most of the information was taken from the son as the patient speaks very little Slovak. The son translated most of it. Patient's [...] or in history of present illness. [facility] Work Phone: 1(171) 693-100511-16-2021 Miscellaneous Notes* Letter - Mammography Coordinator - 03/13/2021 12:36 PM EST [address] [place] [address] March 13, 2021 PID: [id number] Almas Wilson [address] [place] [address] [place] [address] Dear Ms. Wilson, We are pleased to [...] report will be kept on file at [facility] as part of your permanent medical record and are available for your continuing care. Thank you for allowing us to help in meeting your health care needs. Sincerely, Dr. Garcia Interpreting Radiologist [facility] (Normal over 40) documented in [facility]Cl[facility]11-16-[facility]21 History of Present illness Narrative* Sachi Khan [...] 13, 2021 12:21 PM documented in this encounterClerm[facility] HospitalEvaluation noteNo assessment information availableWOhioHealth [facility] Work Phone: Hospital Discharge instructions Additional [...] symptoms. Continue to take your medications as prescribed.[facility] Work Phone: Hospital Discharge instructionsAdditional Instructions Ice [...] infected and worse quickly. If seen just returnWOhioHealth [facility] Hospital Work Phone: Reason for referral (narrative)No reason for referral information availableWOhioHealth Berger Hospital Work Phone: Chief Complaint Sore throat, ear Chief Complaint and Reason for Visit Chief Complaint HYPERGLYCEMIA Chief Complaint Admit Date bite November 09, 2024 2:24 pm Advance Directives Advance Directive Response Recorded Date/ Time Living Will No May 02 3:21pm Power of Hydraulic Press In Operator No May 02 024 3:21pm Advance Directive Response Recorded Date/ Time Do you have a Healthcare Power of Hydraulic Press In Operator? No November 09, 2024 3:54pm Summary Purpose [...] or prosecute any alcohol or drug abuse patient.[facility] the event this information is protected by the Federal Confidentiality of Alcohol and Drug Abuse Patient Records regulations: The Federal rules restrict any use of the information to criminally investigate or prosecute any alcohol or drug abuse patient.[facility] HospitalIn the event this information is protected by the Federal Confidentiality of Alcohol and Drug Abuse Patient Records regulations: The Federal rules restrict any use of the information to criminally investigate or prosecute any alcohol or drug abuse patient.[facility] the event this information is protected by the Federal Confidentiality of Alcohol and Drug Abuse Patient Records regulations: The Federal rules restrict any use of the information to criminally investigate or prosecute any alcohol or drug abuse patient.[facility] HospitalIn the event this information is protected by the Federal Confidentiality of Alcohol and Drug Abuse Patient Records regulations: The Federal rules restrict any use of the information to criminally investigate or prosecute any alcohol or drug abuse patient.[facility] Reason for Visit (unrecogniz ed section and content) Reason Comments Radiology Mammogram Specialty Diagnoses / Procedures Referred By Tiny t Referred To Contact RADIO MAMMO REFLECTIONS [facility] Diagnoses Encounter for general adult medical examination without abnormal findings screening Procedures SCREENING MAMMOGRAPHY BI 2-VIEW BREAST INC CAD MAMMOGRAM SCREEN EXTERNAL Day Nava [address] [place] [phone] Radio Mammo Reflections [place] [address] [place] [id number] Referral ID Status Reason Start Date Expiration Date Visits Re quested Visits Authorized [id number] Closed 04/28/2020 04/27/2021 1 1 Reason Comments Appointment Care Teams (unrecognized sec tion and content) 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 [facility]. provides no warranty or guarantee of the accuracy or completeness of information in this document.
== END 2024-11-09 16:18 | disposition home or self-care (01) ==
LOC: ED 16:12
PROVIDERS: Emergency Provider Emergency Medicine; PCP Nurse Practitioner; Visit Provider Emergency Medicine
DX: S61.051A Open bite of right thumb without damage to nail, initial encounter (principal); E11.9 Type 2 diabetes mellitus without complications; W55.01XA Bitten by cat, initial encounter
CPT/HCPCS: 99282

== ENCOUNTER 2024-11-27 12:00 | Emergency (ER) | payer MEDICARE, SELFPAY ==
[2024-11-27 12:01] VITALS: BP 154/78; PULSE 81; RESP 14; TEMP 37.2; O2SAT 98
[2024-11-27 12:02] VITALS: BP 141/72; PULSE 82; RESP 15; TEMP 36.1; O2SAT 96
--- NOTE | 2024-11-27 12:31 | EDS_ITS ---
HPI <GUMARO Worley - Last Filed: 11/27/24 15:02> History of Present Illness Chief Complaint: Complaint Narrative Narrative: Patient presenting today with her son due to concerns for generally not feeling well over the past several days. She has had fatigue, nasal congestion, sore throat, and a mild cough. She has also had dysuria and vaginal itching over the last few days. She did recently complete antibiotics for a cat bite to her hand. She has had yeast infections in the past and took a dose of Monistat yesterday. She also has a history of UTIs. She has had no fever, chills, abdominal pain, chest pain, shortness of breath. She did have 1 episode of vomiting a few days ago but has not had any further vomiting. PFSH <GUMARO Worley - Last Filed: 11/27/24 15:02> [facility] Medical History Hypertension Diabetes Home Medications ?Medication ?Instructions ?Recorded ?Last Taken ?Type amoxicillin 875 mg-potassium 1 tab PO BID 10 days #20 tabs 11/09/24 Unknown Rx clavulanate 125 mg tablet Allergy/AdvReac Type Severity Reaction Status Date / Time No Known Allergies Allergy Verified 11/27/24 12:00 Social History household members: family housing: house Smoking Status: Never smoker ROS <GUMARO Worley - Last Filed: 11/27/24 15:02> ROS ED Constitutional Constitutional ED: Denies chills or fever(s) Cardiovascular Cardiovascular: Denies chest pain Respiratory/Chest Respiratory/Chest: Reports cough Gastrointestinal Gastrointestinal: Denies abdominal pain, diarrhea, nausea or vomiting Genitourinary Genitourinary ED: Reports dysuria; Denies hematuria Musculoskeletal Musculoskeletal: Denies arthralgias or myalgias Integumentary Denies rash Neurologic Neurologic: Reports weakness EXAM <GUMARO Worley - Last Filed: 11/27/24 15:02> Physical Exam Const Vital Signs: 11/27/24 12:01 11/27/24 12:02 11/27/24 13:02 Temperature 99 F 96.9 F L 98.2 F Temperature Source Temporal Temporal Oral Pulse Rate 81 82 78 Respiratory Rate 14 15 14 Blood Pressure 154/78 H 141/72 H 157/74 H Blood Pressure Mean 103 95 101 Pulse Ox 98 96 97 Oxygen Delivery Method Room Air Room Air Room Air 11/27/24 14:00 11/27/24 15:00 Temperature 98.1 F 97.8 F Temperature Source Oral Pulse Rate 74 90 Respiratory Rate 16 18 Blood Pressure 153/79 H 139/55 H Blood Pressure Mean 103 83 Pulse Ox 98 99 Oxygen Delivery Method Room Air Positive well nourished, well developed and no apparent distress General Appearance ED: well developed HEENT Reports normocephalic and head/scalp atraumatic HEENT Narrative: Posterior pharynx clear, no erythema, no tonsillar exudate, uvula midline, no evidence of peritonsillar abscess Mouth ED: Yes moist mucous membranes normal Eyes PERRL and EOMs intact bilaterally Neck full ROM and supple Neck Narrative: No meningeal signs Chest Wall inspection of chest normal Resp normal respiratory effort and clear to auscultation bilaterally Cardio regular rate and regular rhythm GI soft to palpation, non-tender, non-distended and no masses Back/Spine normal ROM and normal to inspection Extremity normal to inspection and full ROM Neuro oriented x3, CN's II-XII intact bilaterally, moves all extremities, no focal motor deficits and no sensory deficits noted Sensorium / Orientation: awake and alert Psych mental status grossly normal and thought process normal Skin no rashes or lesions noted and no wounds <Dr. Karthik Nicolas MD - Last Filed: 11/27/24 15:59> Physical Exam Const Vital Signs: 11/27/24 12:01 11/27/24 12:02 11/27/24 13:02 Temperature 99 F 96.9 F L 98.2 F Temperature Source Temporal Temporal Oral Pulse Rate 81 82 78 Respiratory Rate 14 15 14 Blood Pressure 154/78 H 141/72 H 157/74 H Blood Pressure Mean 103 95 101 Pulse Ox 98 96 97 Oxygen Delivery Method Room Air Room Air Room Air 11/27/24 14:00 11/27/24 15:00 Temperature 98.1 F 97.8 F Temperature Source Oral Pulse Rate 74 90 Respiratory Rate 16 18 Blood Pressure 153/79 H 139/55 H Blood Pressure Mean 103 83 Pulse Ox 98 99 Oxygen Delivery Method Room Air MDM <GUMARO Worley - Last Filed: 11/27/24 15:02> [facility] Narrative Medical decision making narrative: Patient presenting with flulike symptoms and concerns for UTI, symptoms have been ongoing over the last several days. She is otherwise nontoxic-appearing. I suspect she likely has a viral illness given her nasal congestion, mild cough, and sore throat. She does not have any signs of strep throat on exam and has a low Centor score. Clinically low suspicion for pneumonia, she has had no coughing here, no fever, leukocytosis, her O2 saturation is 98% on room air. Given her urinary symptoms, UA obtained to assess for UTI and is negative. Her CBC and BMP are largely unremarkable aside from a mild anemia. Recommend she follow-up with her PCP and she will be discharged home in stable condition. I have personally performed a face to face assessment of the patient and have reviewed the AMAN Note. I performed a substantive portion of the visit including all aspects of the following. My zhao findings include: History is remarkable for headache, flulike symptoms with subjective fever. She was recently treated for infection with antibiotics and developed a yeast infection. She is due with Diflucan. She has for the past several days complained of burning with urination. She is not a good informant. Son states her appetite has been poor and her liquid and solid intake is poor. He states that he and his have to force her to eat. She does complain of headache. She denies photophobia. She denies ear pain. She does report ports mild nasal congestion and slight nonproductive cough. She denies chest discomfort. She denies flank pain. She has not noted a rash. Exam is remarkable for an elevated blood pressure. Her tongue is slightly dry. HEENT is otherwise unremarkable. Trachea is midline. There is no JVD. Lungs reveal no wheeze, rales or rhonchi. Heart is regular. There is no murmur, gallop or rub. Rate is normal. Abdomen is soft and nontender. There is no pedal splenomegaly. There is no CVA tenderness. Medical Decision Making will obtain cath urine to determine if she does have an infection. If there is no evidence infection she will need a pelvic exam. Will obtain CBC to assess for anemia white count differential, electrolyte panel to assess renal function and glucose. Other additions or changes: [None] Lab Data Labs: Laboratory Results - last 24 hr 11/27/24 11/27/24 13:00 14:07 WBC 6.1 RBC 4.24 Hgb 11.3 L Hct 34.0 L MCV 80.2 L MCH 26.7 L MCHC 33.2 RDW Std Deviation 41.6 RDW Coeff of Chary 14.3 Plt Count 223 MPV 10.2 Immature Gran % (Auto) 0.300 Neut % (Auto) 67.0 Lymph % (Auto) 23.8 [place] % (Auto) 7.7 Eos % (Auto) 0.5 Baso % (Auto) 0.7 Absolute Neuts (auto) 4.1 Absolute Lymphs (auto) 1.45 Nucleated RBC % 0 Sodium 139 Potassium 3.9 Chloride 103 Carbon Dioxide 25.0 Anion Gap 12 BUN 11 Creatinine 0.87 Est GFR (MDRD) Non-Af 71 BUN/Creatinine Ratio 13.1 Glucose 178 H Calcium 8.9 Urine Color Yellow Urine Clarity Clear Urine pH 7.0 Ur Specific [place] 1.005 Urine Protein 15 H Urine Glucose (UA) Normal Urine Ketones Negative Urine Occult Blood Negative Urine Nitrite Negative Urine Bilirubin Negative Urine Urobilinogen Normal Ur Leukocyte Esterase Negative Urine RBC 0 SEEN Urine WBC 0 SEEN Ur Squamous Epith Cells 0 SEEN Urine Bacteria 0 SEEN Urine Mucus 0 SEEN <Dr. Karthik Nicolas MD - Last Filed: 11/27/24 15:59> MDM MDM Narrative Medical decision making narrative: Patient presenting with flulike symptoms and concerns for UTI, symptoms have been ongoing over the last several days. She is otherwise nontoxic-appearing. I have personally performed a face to face assessment of the patient and have reviewed the AMAN Note. I performed a substantive portion of the visit including all aspects of the following. My zhao findings include: History is remarkable for headache, flulike symptoms with subjective fever. She was recently treated for infection with antibiotics and developed a yeast infection. She is due with Diflucan. She has for the past several days complained of burning with urination. She is not a good informant. Son states her appetite has been poor and her liquid and solid intake is poor. He states that he and his have to force her to eat. She does complain of headache. She denies photophobia. She denies ear pain. She does report ports mild nasal congestion and slight nonproductive cough. She denies chest discomfort. She denies flank pain. She has not noted a rash. Exam is remarkable for an elevated blood pressure. Her tongue is slightly dry. HEENT is otherwise unremarkable. Trachea is midline. There is no JVD. Lungs reveal no wheeze, rales or rhonchi. Heart is regular. There is no murmur, gallop or rub. Rate is normal. Abdomen is soft and nontender. There is no pedal splenomegaly. There is no CVA tenderness. Medical Decision Making will obtain cath urine to determine if she does have an infection. If there is no evidence infection she will need a pelvic exam. Will obtain CBC to assess for anemia white count differential, electrolyte panel to assess renal function and glucose. Other additions or changes: [None] Lab Data Attestation: I reviewed the patient's lab results. Lab results narrative: CBC is remarkable for mild microcytic anemia. Labs: Laboratory Results - last 24 hr 11/27/24 11/27/24 13:00 14:07 WBC 6.1 RBC 4.24 Hgb 11.3 L Hct 34.0 L MCV 80.2 L MCH 26.7 L MCHC 33.2 RDW Std Deviation 41.6 RDW Coeff of Chary 14.3 Plt Count 223 MPV 10.2 Immature Gran % (Auto) 0.300 Neut % (Auto) 67.0 Lymph % (Auto) 23.8 [place] % (Auto) 7.7 Eos % (Auto) 0.5 Baso % (Auto) 0.7 Absolute Neuts (auto) 4.1 Absolute Lymphs (auto) 1.45 Nucleated RBC % 0 Sodium 139 Potassium 3.9 Chloride 103 Carbon Dioxide 25.0 Anion Gap 12 BUN 11 Creatinine 0.87 Est GFR (MDRD) Non-Af 71 BUN/Creatinine Ratio 13.1 Glucose 178 H Calcium 8.9 Urine Color Yellow Urine Clarity Clear Urine pH 7.0 Ur Specific [place] 1.005 Urine Protein 15 H Urine Glucose (UA) Normal Urine Ketones Negative Urine Occult Blood Negative Urine Nitrite Negative Urine Bilirubin Negative Urine Urobilinogen Normal Ur Leukocyte Esterase Negative Urine RBC 0 SEEN Urine WBC 0 SEEN Ur Squamous Epith Cells 0 SEEN Urine Bacteria 0 SEEN Urine Mucus 0 SEEN Discharge Plan Triage Chief Complaint: Complaint ED Midlevel Provider: Deandra Sarabia ED Provider: Karthik Nicolas Dx/Rx/DC Orders Clinical Impression: Viral illness, Dysuria, Fatigue Instructions: Dysuria, ED URI, Viral, No Abx (Adult) Prescriptions: No Action amoxicillin-pot clavulanate 875-125 mg tablet 1 tab PO BID 10 Days Qty: 20 0RF Primary Care Provider: Eunice Morgan Referrals: Eunice Morgan NP-C [Primary Care Provider] - 5-7 Days Activity Restrictions/Additional Instructions: Follow-up with your PCP and return for any other concerns or worsening symptoms. Stay well-hydrated. Print Language: Mozambican Disposition Disposition: Home, Self Care Discharge Date/Time: 11/27/24 15:13
[2024-11-27 13:02] VITALS: BP 157/74; PULSE 78; RESP 14; TEMP 36.8; O2SAT 97
[2024-11-27 13:05] LABS: Hematocrit 34.0 % (37-47); Hemoglobin 11.3 g/dL (12.0-15.0); Immature Granulocytes Count 0.020 X10^3/uL (0.0-0.0); Mean Corp Hgb Conc 33.2 g/dL (32-36); Mean Corpuscular Volume 80.2 fL (81-99); Mean Platelet Vol. 10.2 fl (6.2-12.0); NRBC Flagged by Analyzer 0 % (0-5); Platelet Count 223 K/mm3 (150-450); RBC Distribution Width CV 14.3 % (11.6-14.6); RBC Distribution Width SD 41.6 fl (35.1-43.9); Red Blood Count 4.24 M/mm3 (4.2-5.4); White Blood Count 6.1 K/mm3 (4.4-11.0)
--- OUTSIDE RECORDS SUMMARY | 2024-11-27 13:06 | XMS RPT_ITS | CCD ---
Author Organization [facility] Inform ion Partnership [facility] Care Team Providers Care Integration Software Developer Name Role Phone Day Nava Primary Care Provider [phone] Day Nava Unavailable Unavailable Unavailable Day Nava Primary Care Provider [phone] Day Nava Primary Care Provider [phone] Day Nava DO Primary Care Provider Cathy HARDENING MACHINE OPERATOR-CEunice Primary Care Provider Dr. Mark Her MD Emergency Provider [phone] Mark Her Attending Unavailable Eunice Morgan Primary Care Unavailable Medications Current Medications Medication Drug Class(es) Dates [...] Documented Date Episodic/Chronic Diabetes mellitus with complications (1 source) Hyperglycemia due to type 2 diabetes mellitus; Translations: [Type 2 diabetes mellitus with hyperglycemia] 05-24-2023 Chronic Diabetes mellitus without complication (2 [...] (2 sources) Asthenia; Translations: [Weakness] 05-02-2023 Episodic Open wounds of extremities (1 source) Open bite of right thumb without damage to nail, initial encounter; Translations: [Open bite of right thumb without damage to nail, initial encounter] Onset: 11-15-2024 Episodic Other ear and sense organ disorders (1 source) Impacted cerumen; Translations: [Impacted cerumen] Episodic Otitis media and related conditions (1 source) Acute otitis media; Translations: [Unspecified otitis media] Episodic Viral infection (1 source) Respiratory syncytial virus infection; Translations: [Other specified viral diseases] 05-24-2023 Episodic Results Test Name Value Interpretation Reference Range Facility Emergency Department Summary on 11-09-2024 Emergency Department Summary [facility] Medical Records Department [address] [place] [id number] Emergency Department Summary 11/09/24 MR#: [id number] Acct: [id number] Name: ALMAS WILSON Rep #: [id number] : 1955 69 From: Mark Her MD PCP: Eunice Morgan HARDENING MACHINE OPERATORAye Status:PRE ER Location: ED HPI History of [...] Occured/Mechanism Comment: Cat bite bilateral hands yesterday. Onset/Context/Timin g Onset: Yesterday Context: Gradual Onset Timing: Continuous Quality of Pain: Dull and Aching Current Severity: Mild Maximum Severity: Mild Narrative Narrative: 69-year-old diabetic female By Bite right index finger and right thumb and left index finger occurred yesterday.. She is right-hand dominant. Prior similar symptoms: No Recent Illness/Hospitaliza tion: No ROS ROS ED ROS Narrative Denies [...] Psychiatric: Denies anxiety Endocrine Endocrinology: Denies polydipsia Hematologic/Lymphat ic Hematologic/Lymphat ic: Denies easy bleeding, easy bruising or lymphadenopathy Allergic/Immunologi c Allergic/Immunologi c ED: Denies mouth swelling, tongue swelling or urticaria [facility] Medical History Hypertension Diabetes Home Medications ???Medication ???Instructions ???Recorded ???Last Taken ???Type amoxicillin 875 mg-potassium 1 tab PO BID 10 days #20 tabs 10/26 09/19 Unknown Rx clavulanate 125 mg tablet Allergy/AdvReac Type Severity Reaction Status Date / Time No Known Allergies Allergy Verified 11/09/24 14:29 Social History household members: family housing: house Smoking Status: Never smoker EXAM Physical Exam Narrative Exam Narrative: 69-year-old female sitting upright in bed. Vital signs are stable afebrile. No acute distress. Son at bedside. Vital signs are [...] nourished and well developed; Negative for cachectic, contractures or unkempt General Appearance ED: well developed and [...] lumbar spinal tenderness Extremity full ROM; Negative (more content not included)... [facility] 05-21-2024 CAROL Telephone (AGGASTACC) ---- KATIEALMAS ([id number]) 1955 F DALILA Date Time Provider Department 05/21/24 DANIELLE JACKSON [...] Encounter Status:Closed by SILVIA BALDERAS on 06/01/24 [facility] Absolute lymphocyte countOrd ered By: Vianca Leal on 05-02-2023 Lymphocytes Auto (Unsp spec) [#/Vol] 2.27 10*3/uL 0.83-4.51 [facility] Basophil percentageOrdered B y: Vianca Leal on 05-02-2023 Basophil percentage 0-5 SEEN /hpf 0-5 [facility] Basophils/100 WBC (Bld) 0.7 % 0-1 [facility] Bilirubin [Mass/Vol] 0.40 mg/dL 0.20-1.00 [facility] Comment on above: For patients on eltr ombopag therapy, use of Dimension Karval TBIL is not recommended. Chloride [Moles/Vol] 103 mmol/L 98-107 [facility] Eosinophils/100 WBC (Bld) 0.7 % 0-5 [facility] Glucose [Mass/Vol] 386 mg/dL 74-106 [facility] Comment on above: Glucose result great er than or equal to 200 mg/dLsuggests DIABETES MELLITUS per A.D.A. criteria. Neutrophils (Bld) [#/Vol] 4.6 10*3/uL 2.0-7.7 [facility] Neutrophils/100 WBC (Bld) 61.5 % 47-70 [facility] Potassium [Moles/Vol] 4.6 mmol/L 3.5-5.1 [facility] Protein [Mass/Vol] 7.5 g/dL 6.4-8.2 [facility] Sodium [Moles/Vol] 137 mmol/L 136-145 [facility] WBC (Bld) [#/Vol] 7.4 10*3/uL 4.4-11.0 [facility] Bilirubin Test strip Ql (U)O rdered By: Vianca Leal on 05-02-2023 Bilirubin Ql (U) Negative Negative [facility] Blood erythrocytes count (nu mber/volume)Ordered By: Vianca Leal on 05-02-2023 RBC (Bld) [#/Vol] 4.88 10*6/uL 4.2-5.4 [facility] Blood hemoglobin measurement (mass/volume)Ordered By: Vianca Leal on 05-02-2023 Hemoglobin (Bld) [Mass/Vol] 12.9 g/dL 12.0-15.0 [facility] Blood lymphocytes/100 leukoc ytesOrdered By: Vianca Leal on 05-02-2023 Lymphocytes/100 WBC (Bld) 30.6 % 19-41 [facility] Blood monocytes/100 leukocyt esOrdered By: Vianca Leal on 05-02-2023 Monocytes/100 WBC (Bld) 6.2 % 0-10 [facility] Blood platelet mean volumeOr dered By: Vianca Leal on 05-02-2023 Platelet mean volume (Bld) [Entitic vol] 11.1 fL 6.2-12.0 [facility] Determination of erythrocyte mean corpuscular volume (MCV)Ordered By: Vianca Leal on 05-02-2023 MCV (RBC) [Entitic vol] 80.9 fL 81-99 [facility] Glucose Glucometer (BldC) [M ass/Vol]Ordered By: Vianca Leal on 05-02-2023 Glucose [Mass/Vol] 293 mg/dL 74-106 [facility] Comment on above: MANAGEMENT OF PATIEN T CARE PER NURSING PROTOCOL Hematocrit Auto (Bld) [Volum e fraction]Ordered By: Vianca Leal on 05-02-2023 Hematocrit (Bld) [Volume fraction] 39.5 % 37-47 [facility] Ketones Test strip Ql (U)Ord ered By: Vianca Leal on 05-02-2023 Ketones Ql (U) Negative Negative [facility] Laboratory - Chemistry and C hemistry - challengeOrdered By: Vianca Leal on 05-02-2023 ALP [Catalytic activity/Vol] 153 U/L 45-117 [facility] ALT [Catalytic activity/Vol] 24 U/L 13-56 [facility] CO2 [Moles/Vol] 25.0 mmol/L 21.0-32.0 [facility] Globulin (S) [Mass/Vol] 3.9 g/dL 2.2-4.2 [facility] Urea nitrogen/Creatinine [Mass ratio] 18.6 mg/mg 10-20 [facility] Laboratory - Hematology and Cell countsOrdered By: Vianca Leal on 05-02-2023 Erythrocyte distribution width (RBC) [Entitic vol] 42.3 fL 35.1-43.9 [facility] Erythrocyte distribution width (RBC) [Ratio] 14.4 % 11.6-14.6 [facility] Immature granulocytes/100 WBC (Bld) 0.300 % 0.0-0.9 [facility] Comment on above: IG% - Immature Granu locytes (promyelocytes, myelocytes and metamyelocytes) > 1% indicates that a LEFT SHIFT is Present. MCH (RBC) [Entitic mass] 26.4 pg 27.0-32.0 [facility] Nucleated RBC/100 WBC (Bld) [Ratio] 0 % 0-5 [facility] MCHC Auto (RBC) [Mass/Vol]Or dered By: Vianca Leal on 05-02-2023 MCHC (RBC) [Mass/Vol] 32.7 g/dL 32-36 [facility] Mucus LM Ql (Urine sed)Order ed By: Vianca Leal on 05-02-2023 Mucus Ql (Urine sed) 0 SEEN /hpf [facility] Nitrite Test strip Ql (U)Ord ered By: Vianca Leal on 05-02-2023 Nitrite Ql (U) Negative Negative [facility] No Panel InformationOrdered By: Vianca Leal on 05-02-2023 Estimated Creatinine Clearance Calc 33.75 ml/min [facility] Estimated GFR (MDRD) Amer 61 mL/min >60 [facility] Comment on above: GFR Calc Estimated GFR (MDRD) Non-Af Amer 51 mL/min >60 [facility] Comment on above: Non- GFR Calc Platelets bldOrdered By: Rosetta Leal on 05-02-2023 Platelets (Bld) [#/Vol] 293 10*3/uL 150-450 [facility] Protein Test strip Ql (U)Ord ered By: Vianca Leal on 05-02-2023 Protein Ql (U) 30 mg/dl Negative [facility] Serum or plasma albumin phong urement (mass/volume)Ordered By: Vianca Leal on 05-02-2023 Albumin [Mass/Vol] 3.6 g/dL 3.2-5.0 [facility] Serum or plasma albumin/glob ulin mass ratioOrdered By: Vianca Leal on 05-02-2023 Albumin/Globulin [Mass ratio] 0.9 {ratio} 0.9-2.4 [facility] Serum or plasma calcium phong urement (mass/volume)Ordered By: Vianca Leal on 05-02-2023 Calcium [Mass/Vol] 9.5 mg/dL 8.5-10.1 [facility] Serum or plasma creatinine m easurement (mass/volume)Ordered By: Vianca Leal on 05-02-2023 Creatinine [Mass/Vol] 1.13 mg/dL 0.55-1.02 [facility] Comment on above: The validity of the calculated GFR & GFRAA in patients over 70 years has not been determined. Clinical correlation is essential. Serum or plasma urea nitroge n measurement (mass/volume)Ordered By: Vianca Leal on 05-02-2023 Urea nitrogen [Mass/Vol] 21 mg/dL 7-18 [facility] Squamous epithelial cells de tection in urine sediment by light microscopyOrdered By: Vianca Leal on 05-02-2023 Epithelial cells.squamous LM Ql (Urine sed) 0 SEEN /hpf 5-10 [facility] Thin prep Papanicolaou smear with manual screeningOrdered By: Vianca Leal on 05-02-2023 Thin prep Papanicolaou smear with manual screening 8 U/L 15-37 [facility] Thin prep Papanicolaou smear with manual screening 9 5-15 [facility] Urine blood detectionOrdered By: Vianca Leal on 05-02-2023 RBC Ql (U) 10 /ul Negative [facility] RBC Ql (U) 0 SEEN /hpf 0-5 [facility] Urine clarityOrdered By: Rosetta Leal on 05-02-2023 Clarity (U) Clear Clear [facility] Urine color determinationOrd ered By: Vianca Leal on 05-02-2023 Color (U) Yellow Yellow [facility] Urine glucose detectionOrder ed By: Vianca Leal on 05-02-2023 Glucose Ql (U) 1000 mg/dl Normal [facility] Urine leukocyte esterase det ection by dipstickOrdered By: Vianca Leal on 05-02-2023 Leukocyte esterase Test strip Ql (U) 25 /ul Negative [facility] Urine pHOrdered By: Vianca gamboa on 05-02-2023 pH (U) 6.0 [pH] 5.0 - 8.0 [facility] Urine sediment bacteria coun t by microscopy (number/high power field)Ordered By: Vianca Leal on 05-02-2023 Bacteria LM.HPF (Urine sed) [#/Area] 0 /[HPF] None Seen [facility] Urine specific gravity measu rementOrdered By: Vianca Leal on 05-02-2023 Specific gravity (U) [Rel density] 1.015 1.002-1.030 [facility] Urobilinogen Auto test strip Ql (U)Ordered By: Vianca Leal on 05-02-2023 Urobilinogen Ql (U) Normal mg/dl Normal [facility] MG Breast Screeningon 2022 IMPRESSION: BENIGN FINDING There is no mammographic evidence of malignancy. A 1 year screening mammogram is recommended. [place] wang/vineet:02/12/20 23 14:29:44 Maternity Floor Supervisor(s): Mateo Herbert (R)(M), [facility] [place] letter sent: Normal over 40 Mammogram BI-RADS: [...] Health, Family Medicine, and Medical/Surgical Oncology, the [facility] has carefully reviewed the data and reached [...] their providers when to stop screening mammograms. Cancer Program Coordinator: Vineet Transcribe Date/Time: Feb 11 2023 11:10A Dictated by : LONDON GARCIA MD This examination was interpreted and the report reviewed and electronically signed by: LONDON GARCIA MD on Feb 11 2023 2:29PM EST [employer] * * *Final Report* * * DATE OF EXAM: Feb 11 2023 11:23AM AT 0581 - [facility] SCREENING / PROCEDURE REASON: SCREENING * * * * Physician Interpretation * * * * #[id number] - [facility] SCREENING BILATERAL DIGITAL SCREENING MAMMOGRAM WITH CAD: 02/11/2023 HISTORY: Screening / Screening Mammogram-Patient reports NO symptoms. RESULT: TECHNIQUE: The study was acquired using full field digital technology and interpreted from soft copy. Current study was also evaluated with a Computer Aided Detection (CAD). Comparison is made to exam dated: 03/13/2021 mammogram - [facility] [place]. There are scattered areas of fibroglandular density. There are benign vascular calcifications in both breasts. No significant masses, calcifications, or other findings are seen in either breast. There has been no significant interval change. [facility]IOLOG[facility] [employer] Provider, [facility] [place] - 02/11/2023 * * *Final Report* * * DATE OF EXAM: Feb 11 2023 11:23AM AT 0581 - [facility] SCREENING / PROCEDURE REASON: SCREENING * * * * Physician Interpretation * * * * #[id number] - [facility] SCREENING BILATERAL DIGITAL SCREENING MAMMOGRAM WITH CAD: 02/11/2023 HISTORY: Screening / Screening Mammogram-Patient reports NO symptoms. RESULT: TECHNIQUE: The study was acquired using full field digital technology and interpreted from soft copy. Current study was also evaluated with a Computer Aided Detection (CAD). Comparison is made to exam dated: 03/13/2021 mammogram - [place] [facility]. There are scattered areas of fibroglandular density. There are benign vascular calcifications in both breasts. No significant masses, calcifications, or other findings are seen in either breast. There has been no significant interval change. IMPRESSION IMPRESSION: BENIGN FINDING There is no mammographic evidence of malignancy. A 1 year screening mammogram is recommended. [place] wang/vineet:02/12/20 14:29:44 Maternity Floor Supervisor(s): Mateo Herbert(Nini)(M), [facility] [place] letter sent: Normal over 40 Mammogram BI-RADS: [...] Health, Family Medicine, and Medical/Surgical Oncology, the [facility] has carefully reviewed the data and reached [...] their providers when to stop screening mammograms. Cancer Program Coordinator: Vineet Transcribe Date/Time: Feb 11 2023 11:10A Dictated by : LONDON GARCIA MD This examination was interpreted and the report reviewed and electronically signed by: LONDON GARCIA MD on Feb 11 2023 2:29PM EST [facility] Radiology Study observation (narrative) Efrem Lewis MG Breast ScreeningOrdered B y: [facility] Provider on 02-11-2023 [facility] Tobacco Screening.on 023 Adult depression screening assessment No [facility] Work Phone: Fall risk assessment b) One or more falls in the last year [facility] Work Phone: Tobacco use status [facility] b) No [facility] Work Phone: [facility] SCREENINGon 03-13-2021 [facility] Vital Signs Date Time Vital Sign Value Performing Clinician Facility 11-09-2024 16:02-0400 Body temperature 98.6 [degF] [employer] HARDENING MACHINE OPERATOR-C Work Phone: [facility] 11-09-2024 16:02-0400 Diastolic blood pressure 78 mm[Hg] [employer] HARDENING MACHINE OPERATOR-C Work Phone: [facility] 11-09-2024 16:02-0400 Heart rate 89 /min [employer] HARDENING MACHINE OPERATOR-C Work Phone: [facility] 11-09-2024 16:02-0400 Respiratory rate 18 /min [employer] HARDENING MACHINE OPERATOR-C Work Phone: [facility] 11-09-2024 16:02-0400 SaO2% (BldA) [Mass fraction] 98 % [employer] HARDENING MACHINE OPERATOR-C Work Phone: [facility] 11-09-2024 16:02-0400 Systolic blood pressure 130 mm[Hg] [employer] HARDENING MACHINE OPERATOR-C Work Phone: [facility] 11-09-2024 14:25-0400 Body height 152.4 cm [employer] HARDENING MACHINE OPERATOR-C Work Phone: [facility] 11-09-2024 14:25-0400 Body mass index (BMI) [Ratio] 37.3 kg/m2 [employer] HARDENING MACHINE OPERATOR-C Work Phone: [facility] 11-09-2024 14:25-0400 Body weight 86.63 kg Eunice Norfolk HARDENING MACHINE OPERATOR-C Work Phone: [facility] 05-02-2023 18:00-0500 Diastolic blood pressure 69 mm[Hg] [facility] 05-02-2023 18:00-0500 Heart rate 84 /min [facility] 05-02-2023 18:00-0500 Respiratory rate 16 /min [facility] 05-02-2023 18:00-0500 SaO2% (BldA) [Mass fraction] 97 % [facility] 05-02-2023 18:00-0500 Systolic blood pressure 144 mm[Hg] [facility] 05-02-2023 13:49-0500 Body height 152.4 cm [facility] 05-02-2023 13:49-0500 Body mass index (BMI) [Ratio] 36.8 kg/m2 [facility] 05-02-2023 13:49-0500 Body temperature 98.3 [degF] [facility] 05-02-2023 13:49-0500 Body weight 85.5 kg [facility] 06-08-2022 15:34-0500 Body height 154.94 cm Day Nava Work Phone: [facility] Work Phone: 06-08-2022 15:34-0500 Body mass index (BMI) [Ratio] 34.01 kg/m2 Day Nava Work Phone: [facility] Work Phone: 06-08-2022 15:34-0500 Body surface area Derived from formula 1.81 m2 Day Nava Work Phone: [facility] Work Phone: 06-08-2022 15:34-0500 Body temperature 98 [degF] Day Nava Work Phone: [facility] Work Phone: 06-08-2022 15:34-0500 Body weight 81.65 kg Day Nava Work Phone: [facility] Work Phone: 06-08-2022 15:34-0500 Diastolic blood pressure 66 mm[Hg] Day Nava Work Phone: [facility] Work Phone: 06-08-2022 15:34-0500 Heart rate 75 /min Day Nava Work Phone: [facility] Work Phone: 06-08-2022 15:34-0500 Respiratory rate 16 /min Day Nava Work Phone: [facility] Work Phone: 06-08-2022 15:34-0500 SaO2% (BldA) [Mass fraction] 97 % Day Nava Work Phone: [facility] Work Phone: 06-08-2022 15:34-0500 Systolic blood pressure 132 mm[Hg] Day Nava Work Phone: [facility] Work Phone: 06-08-2022 15:34-0500 5 1 Day Nava Work Phone: [facility] Work Phone: Comment on above: [employer] Encounters Encounter Date Encounter Type Care Provider Facility Start: 11-09-2024 End: 11-09-2024 Emergency department patient visit Eunice Morgan HARDENING MACHINE OPERATOR-C Work Phone: -Emergency Department Work Phone: Start: 05-21-2024 End: 06-01-2024 Telephone encounter Danielle Jackson PA-C Work Phone: [facility] Comment on above: Appointment Start: 05-02-2023 End: 05-02-2023 Emergency department patient visit [facility]-Emergency Department Work Phone: Start: 02-11-2023 Documentation procedure Mammog gurjit Coordinator [facility] Start: 02-11-2023 Letter encounter Mammography Coordinator [place] [facility] NOT LISTED Start: 02-11-2023 End: 02-11-2023 Subsequent hospital visit by physician Screen [facility]amm[facility] [place] [facility] MAMMO REFLECTIONS [facility] Comment on above: Screening Start: 06-08-2022 Office outpatient ne w 30 minutes Day Nava [facility] Work [facility]: Start: 03-13-2021 Documentation procedure Mammog gurjit Coordinator [facility] Start: 03-13-2021 Letter encounter Mammography Coordinator [place] [facility] NOT LISTED Start: 03-13-2021 End: 03-13-2021 Subsequent hospital visit by physician Screen [facility]amm[facility] [place] RADIO MAMMO REFLECTIONS [facility] Comment on above: [...] RSV Vaccine (1 - 1-dose 75+ series) [facility] Start: 11-09-2024 [facility] Start: 09-14-2024 End: 09-14-2024 Patient encounter procedure 09/14/2024 1:00 PM EDT Office Visit [facility] [address] [place] [address] Eunice Webb PA-C [address] [place] [address] rf/malignant neoplasm of colon [facility] Comment on above: rf/malignant neoplas m of colon Start: 04-28-2024 Advance Directive Discussion Advance Directive Discussion [facility] Start: 02-12-2024 Screening for malign ant neoplasm of breast Mammogram Screening [facility] Start: 02-08-2024 Screening for malign ant neoplasm of colon [facility] Start: 12-28-2023 Covid-19 Vaccine () Covid-19 Vaccine () [facility] Start: 12-28-2023 Covid-19 Vaccine () Covid-19 Vaccine () [facility] Start: 12-28-2023 Influenza vaccination Influenza Vacc ine (#1) [facility] Start: 05-02-2023 [facility] Start: 05-02-2023 [facility] Start: 05-02-2023 Bacteria identified in Urine by Culture Urine Culture [facility] Start: 04-28-2023 Advance Directive Discussion Advance Directive Discussion [facility] Start: 12-27-2022 Covid-19 Vaccine () Covid-19 Vaccine () [facility] Start: 12-27-2022 Influenza vaccination Influenza Vacc ine (#1) [facility] Start: 04-28-2022 Advance Directive Discussion Advance Directive Discussion [facility] Start: 04-28-2022 Depression Assessment Depression Ass essment [facility] Start: 03-13-2022 Mammography [facility] Start: 03-20-2021 COVID-19 VACCINE (3 - Booster for Moderna series) COVID-19 VACCINE (3 - Booster for Moderna series) [facility] Start: 12-27-2020 Influenza vaccination INFLUENZA (#1) [facility] Start: 10-06-2020 Urine microalbumin profile DTaP,Tdap,Td Vaccine (1 - Tdap) [facility] Start: 2018 ADVANCE DIRECTIVE DISCUSSION ADVANCE DIRECTIVE DISCUSSION [facility] Start: 2018 BONE DENSITY BONE DENSITY [facility] Start: 2018 Bone Density Screening Bone Density Screening [facility] Start: 2018 Pneumococcal Vaccine : 65+ (1 - PCV) Pneumococcal Vaccine: 65+ (1 - PCV) [facility] Start: 2018 Pneumococcal Vaccine : 65+ (1 of 1 - PCV) Pneumococcal Vaccine: 65+ (1 of 1 - PCV) [facility] Start: 2018 PNEUMOVAX AGE 65 AND OVER WITH 5YR LOOKBACK (#1) PNEUMOVAX AGE 65 AND OVER WITH 5YR LOOKBACK (#1) [facility] Start: 2018 Screening for osteoporosis Bone Density Screening [facility] Start: 2013 RSV Vaccine (1 - 1-d ose 60+ series) RSV Vaccine (1 - 1-dose 60+ series) [facility] Start: 10-20-2003 Pneumococcal Vaccine : 50+ (1 of 1 - PCV) Pneumococcal Vaccine: 50+ (1 of 1 - PCV) [facility] Start: 10-20-2003 SHINGRIX VACCINE (1 of 2) SHINGRIX VACCINE (1 of 2) [facility] Start: 1998 COLOGUARD (FIT-DNA) COLOGUARD (FIT-D NA) [facility] Start: 1998 Colonoscopy COLONOSCOPY [facility] Start: 1998 COLORECTAL CANCER SCREENING COLORECTAL CANCER SCREENING [facility] Start: [address] [facility] Start: 1998 DIABETES SCREEN DIABET[facility]CREEN [facility] Start: 1998 Diabetes Screening Diabetes Screenin g [facility] Start: 1998 FECAL OCCULT BLOOD FECAL OCCULT BLOO D [facility] Start: 1998 Lipid 1996 panel - S brittany or Plasma Lipid Screening [facility] Start: 1998 Lipid panel Lipid Screening [facility] Start: 1998 LIPID SCREEN LIPID SCREEN [facility] Start: 1998 Screening for malign ant neoplasm of colon [facility] Start: 1998 SIGMOIDOSCOPY SIGMOIDOSCOPY [facility] Start: 1972 Urine microalbumin profile DTAP,TDAP,TD (1 - Tdap) [facility] Start: 10-20-1971 Anxiety Screening Anxiety Screening [facility] Start: 10-20-1971 Depression Screening Depression Scre ening [facility] Start: 10-20-1971 HEPATITIS C SCREENING HEPATITIS C [facility] Start: 10-20-1971 Hepatitis C screening Hepatitis C Sc reening [facility] Start: 1965 Adult depression screening assessment DEPRESSION SCREENING [facility] Patient Education [facility] Work Phone: Patient referral [facility] Work Phone: Payers Date Payer Category Payer Self-pay 2024 Unknown [id number] 2022 Medicare [facility] MEDIC[facility] A[employer] C[employer] PPO [id number] 2022-Present [phone] [address] [address] [place] [address] PPO [id number] 2020 Medicare MEDICARE [employer] GE GENERIC MEDICARE ADVANTAGE GENERIC [id number] 2020-Present [phone] [address] [address] [place] [address] Indemnity [id number] Unknown [facility] Unknown AARP MCR ADV [id number] Unknown [id number] Social History Date Type Detail Facility Start: 05-02-2023 Tobacco smoking status WAIS Tobacco smoking consumption unknown [facility] Start: 1955 Sex Assigned At Not on file [facility] Exposure to SARS-CoV-2 (event) Not sure [facility] Gender identity Not on file [facility] in Start: 1955 Sex Assigned At Female [facility] Start: 11-09-2024 Tobacco smoking status NHIS Never smoked tobacco (finding) [facility] Mental Status Date Assessment Result Facility 05-02-2023 Cognitive function Level Of Cons ciousness Awake;Alert;Appropriate [facility] Work Phone: Clinical Notes 03-13-2021 to 11-09-2024 Note Date & Type Note Facility 11-09-2024 Discharge summary [facility] 11-09-2024 Discharge summary Note Date/Time November 09, 2024 4:09pm [facility] Medical Records Department [address] [place] [address] Emergency Department Summary 11/09/24 MR#: [id number] Acct: [id number] Name: ALMAS WILSON Rep #:[id number] : 1955 69 From: Mark Her MD PCP: Eunice Morgan HARDENING MACHINE OPERATORAye Status:PRE ER Location: ED HPI History of [...] Primary Care Provider: Eunice Morgan Referrals: Eunice Morgan NP-C [Primary Care Provider] - As Needed Activity [...] quickly. If seen just return Print Language: Barbadian Disposition Disposition: Home, Self Care What to do if you have Problems For any increased pain, shortness of breath, bleeding, nausea or vomiting, chestpain, or any unexpected problems, contact your Primary Care Provider. Call [facility] ([phone]) or report to the closest Emergency Room. Call 911 if necessary. 11/09/24 1609 <Electronically signed by Mark Her MD> Cosigner Signature (if applicable): CC: Eunice Morgan ~ Signed [facility] Work Phone: [phone]) 868-588301-24-2025 Telephone encounter Note* Telephone Encounter - Silvia Balderas - 05/21/2024 3:49 PM EST Left voicemail for patient to call back to schedule a appointment based on referral for screening for malignant neoplasm of colon Silvia Balderas [facility]01-24-2025 Miscellaneous Notes* Telephone Encounter - Silvia Balderas - 05/21/2024 3:49 PM EST Left voicemail for patient to call back to schedule a appointment based on referral for screening for malignant neoplasm of colon Silvia Balderas documented in this encounterUniversity [facility]als [facility]10-17-2023 Miscellaneous Notes* Letter - Coordinator, Mammography - 02/11/2023 2:29 PM EDT [address] [place] [address] February 12, 2023 PID: [id number] Almas Wilson [address] [place] [address] Dear Ms. Wilson, We are pleased to [...] report will be kept on file at [facility] as part of your permanent medical record and are available for your continuing care. Thank you for allowing us to help in meeting your health care needs. Sincerely, Dr. Garcia Interpreting Radiologist [facility] (Normal over 40) documented in this encounterUniversity Hospitals [facility]10-17-2023 History of Present illness Narrative* Sachi Khan [...] DATA: Not applicable SIGNED BY: RT Gerardo(R) February 11, 2023 11:29 AM documented in this encounterUniversity Hospitals Geaug[facility] Center02-09-2023 History of Present illness Narrative* Patient 66-year-old female presenting with her son for sore throat ear pain. Most of the information was taken from the son as the patient speaks very little British. The son translated most of it. Patient's [...] or in history of present illness. [facility] Work Phone: 1(341) 568-277411-16-2021 Miscellaneous Notes* Letter - Mammography Coordinator - 03/13/2021 12:[address] [facility] [address] [place] [address] March 13, 2021 PID: [id number] Almas Wilsno [address] [place] [address] Dear Wilson, We are pleased to inform you [...] report will be kept on file at [facility] as part of your permanent medical record and are available for your continuing care. Thank you for allowing us to help in meeting your health care needs. Sincerely, Dr. Garcia Interpreting Radiologist [facility] (Normal over 40) documented in this encounterUniversity Hospitals [facility] Center11-16-2021 History of Present illness Narrative* Sachi Khan, RT(R) - 03/13/2021 11:40 AM EST Radiology [...] 13, 2021 12:21 PM documented in this encounterUniversity Hospitals Geauga Medical CenterEvaluation noteNo assessment information availableWBellevue Hospital Work Phone: Hospital Discharge instructions Additional [...] symptoms. Continue to take your medications as prescribed.[facility] Work Phone: Hospital Discharge instructionsAdditional Instructions [...] infected and worse quickly. If seen just returnWBellevue Hospital Work Phone: Reason for referral (narrative)No reason for referral information availableWBellevue Hospital Work Phone: Chief Complaint Sore throat, ear Chief Complaint and Reason for Visit Chief Complaint HYPERGLYCEMIA Chief Complaint Admit Date bite November 09, 2024 2:24 pm Advance Directives No Advanced Directives Records Found Advance Directive Response Recorded Date/ Time Living Will No May 02 3:21pm Power of Internet Sourcer No May 02 024 3:21pm Advance Directive Response Recorded Date/ Time Do you have a Healthcare Power of Internet Sourcer? No November 09, 2024 3:54pm Summary Purpose [...] or prosecute any alcohol or drug abuse patient.[facility] CenterIn the event this information is protected by the Federal Confidentiality of Alcohol and Drug Abuse Patient Records regulations: The Federal rules restrict any use of the information to criminally investigate or prosecute any alcohol or drug abuse patient.[facility] CenterIn the event this information is protected by the Federal Confidentiality of Alcohol and Drug Abuse Patient Records regulations: The Federal rules restrict any use of the information to criminally investigate or prosecute any alcohol or drug abuse patient.[facility] CenterIn the event this information is protected by the Federal Confidentiality of Alcohol and Drug Abuse Patient Records regulations: The Federal rules restrict any use of the information to criminally investigate or prosecute any alcohol or drug abuse patient.[facility] CenterIn the event this information is protected by the Federal Confidentiality of Alcohol and Drug Abuse Patient Records regulations: The Federal rules restrict any use of the information to criminally investigate or prosecute any alcohol or drug abuse patient.[facility] Reason for Visit (unrecogniz ed section and content) Reason Comments Radiology Mammogram Specialty Diagnoses / Procedures Referred By Contac t Referred To Contact RAD[facility] Encounter for general adult medical examination without abnormal findings screening Procedures SCREENING MAMMOGRAPHY BI 2-VIEW BREAST INC CAD MAMMOGRAM SCREEN EXTERNAL Day Nava [address] [place] [id number] Radio Mammo Reflections [address] [address] Referral ID Status Reason Start Date Expiration Date Visits Re quested Visits Authorized [id number] Closed 04/28/2020 04/27/2021 1 1 Reason Comments Appointment Care Teams (unrecognized sec tion and content) Integration Software Developer Relationship Specialty Start Date End Date Day Nava [facility] [address] [phone] PCP - General Family Practice 03/13/21 Integration Software Developer Relationship Specialty Start Date End Date Day Nava [address] [place] [phone] PCP - General Family Practice 03/13/21 Integration Software Developer Relationship Specialty Start Date End Date Day Nava [address] [phone] PCP - General Family Medicine 03/13/21 Team Status: Active Member Role Status Dates DAY NAVA Primary Care Provider Active Team Status: Inactive Member Role Status Dates Dr. Vianca Leal DO Emergency Provider Active BRANDY GONZALES Primary Care Provider Active Integration Software Developer Relationship Specialty Start Date End Date Day Nava [address] [phone] PCP - General Family Medicine 03/13/21 Integration Software Developer Relationship Specialty Start Date End Date Day Nava DO [address] [id number] PCP - General [facility] Medicine 03/13/21 Team Status: Active Member [...] ized section and content) DATE CREATED AUTHOR 06/03/2024 [facility] DATE CREATED AUTHOR AUTHOR'S ORGANIZ ATION 11/16/2024 [facility] FOR RECORDS PERTAINING TO PATIENTS WHO [...] BE BASED ON THE PRIMARY CLINICAL RECORDS. [facility] [employer] [facility]. provides no warranty or guarantee of the accuracy or completeness of information in this document.
[2024-11-27 13:35] LABS: Anion Gap 12 (5-15); BUN 11 mg/dL (4-19); BUN/Creat Ratio 13.1 RATIO (10-20); Calcium,Total 8.9 mg/dL (7.6-11.0); Carbon Dioxide 25.0 mmol/L (21.0-32.0); Chloride 103 mmol/L (98-108); Glucose 178 mg/dL (70-99); Potassium 3.9 mmol/L (3.3-5.1)
[2024-11-27 14:00] VITALS: BP 153/79; PULSE 74; RESP 16; TEMP 36.7; O2SAT 98
[2024-11-27 14:11] LABS: Mucous, Urine 0 SEEN /hpf (<or=2+); Red Blood Cells-Urine 0 SEEN /hpf (0-5); Squamous Epithelial Cells - UA 0 SEEN /hpf (5-10)
[2024-11-27 14:12] LABS: Color, Urine Yellow (Yellow); Glucose, Dipstick Normal (Normal); Ketone-Dipstick Negative (Negative); Leukocyte Esterase-Dipstick Negative /ul (Negative); Nitrite-Dipstick Negative (Negative); Occult Blood-Urine Negative /ul (Negative); Protein-Dipstick 15 mg/dl (Negative); Specific Gravity, Urine 1.005 (1.002-1.030); Urine Bilirubin Dipstick Negative (Negative)
[2024-11-27 15:00] VITALS: BP 139/55; PULSE 90; RESP 18; TEMP 36.6; O2SAT 99
== END 2024-11-27 15:13 | disposition home or self-care (01) ==
PROVIDERS: Physician Assistant; Emergency Provider Emergency Medicine; PCP Nurse Practitioner; Visit Provider Emergency Medicine
DX: B34.9 Viral infection, unspecified (principal); E11.9 Type 2 diabetes mellitus without complications; I10 Essential (primary) hypertension; R53.83 Other fatigue
CPT/HCPCS: 80048; 81001; 85025; 99283; A4216